=== PATIENT | female | born 1950 | race Caucasian/White ===

== ENCOUNTER 2020-11-18 19:17 | Outpatient (REF) | payer OTHER, SELFPAY ==
[2020-11-18 20:17] LABS: HCT 43.6 % (36.0-46.0); MCH 29.2 pg (27.0-33.0); MCHC 32.1 % (32.0-36.0); MCV 90.8 fL (80-95); MPV 9.4 fL (8.0-11.0); Platelet Count 287 10^3/uL (130-400); RDW 11.9 % (11.7-14.6); RDW-SD 39.9 fL; WBC 9.86 10^3/uL (4.4-10.8)
[2020-11-18 20:41] LABS: Anion Gap 11.5 mmol/L (3-11); BUN 14 mg/dL (7-18); CO2 27.5 mmol/L (21.0-32.0); CREATININE 0.8 mg/dL (0.55-1.02); Calcium 9.2 mg/dL (8.5-10.1); Calculated LDL 98 mg/dL (<100); Chloride 103 mmol/L (98-107); Cholesterol 165 mg/dL (<200); Glucose 95 mg/dL (74-106); HDL Cholesterol 46 mg/dL (40-60); Potassium 4.1 mmol/L (3.5-5.1); Sodium 142 mmol/L (136-145); TSH 0.91 uIU/mL (0.36-3.74); Triglyceride 108 mg/dL (<150)
== END 2020-11-18 19:18 | disposition home or self-care (01) ==
LOC: NCHCN 19:17
PROVIDERS: PCP Internal Medicine; Visit Provider Internal Medicine
DX: E78.5 Hyperlipidemia, unspecified (principal); R68.89 Other general symptoms and signs
CPT/HCPCS: 80048; 80061; 85027; 84443

== ENCOUNTER 2020-11-25 02:11 | Outpatient (CLI) | payer SELFPAY ==
[2020-11-25] MEDS: Omnipaque 350 MG/ML 50 ML BTL IJ (14:14)
[2020-11-25] MEDS: Normal Saline - Diluent 50 ML VIAL IV (14:15)
[2020-11-25] MEDS: Normal Saline Flush 10 ML SYR IVP (14:16)
--- NOTE | 2020-11-25 14:16 | DI.CT_ITS ---
EXAM: CT ABD AORTA CTA W RUNOFF CLINICAL HISTORY: RT CLAUDICATION LEG, I73.9,. TECHNIQUE: Imaging Protocol: Axial computed tomography images with coronal and sagittal reformatted images were created and reviewed CONTRAST MATERIAL: Intravenous: Visipaque 350 Contrast volume:150 cc COMPARISON: No exams were available for comparison FINDINGS: VISUALIZED LUNG BASES: THERE IS A LARGE CONCERNING MASS IN THE RIGHT LOWER LOBE POSTERIOR BASAL SEGMENT WHICH MEASURES 3.5 B Y 2.3 CENTIMETRES WHICH IS HIGHLY SUSPICIOUS FOR NEOPLASM. ABDOMINAL AORTA/BILATERAL LOWER EXTREMITY RUNOFF: The abdominal aorta is atherosclerotic. 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 Flow is reconstituted in the external iliac arteries via retrograde flow in both internal iliac arteries. Both common femoral arteries are patent. Both SFA arteries are nicely patent neck continu ous with patent nonaneurysmal bilateral popliteal arteries. There is 3 vessel runoff in both calves. The celiac and superior mesenteric arteries are patent without tight stenosis at their origins. The origin of the inferior mesenteric artery is not opacified as this comes off of the occluded part of t he aorta. There are no obvious ischemic appearing bowel loops. ABDOMEN: There is no ascites. LIVER: multiple small hypodensities in the liver are too small to characterize on this arterial phase study. GALLBLADDER/BILIARY: Gallbladder is contracted. CBD is not dilated. PANCREAS: No evidence of pancreatic mass nor dilatation of the pancreatic duct. SPLEEN: Spleen is not enlarged. There are no intrasplenic lesions. ADRENALS: Right adrenal gland unremarkable. Slight thickening the left adrenal gland but without an obvious mass therein KIDNEYS: No cysts evident. No calculi nor hydronephrosis. No solid renal masses. LYMPH NODES: There is no retroperitoneal nor para-aortic adenopathy. No obvious mesenteric masses. ABDOMINAL WALL/GI: No evidence of significant anterior abdominal wall hernia. No bowel obstruction. There are no obvious ischemic appearing bowel loops. There is no ascites. PELVIS: LYMPH NODES: There is no intrapelvic nor inguinal adenopathy. GI: No evidence of appendicitis.There is extensive sigmoid diverticulosis. There is no obvious acute diverticulitis. URINARY BLADDER: No calculi nor masses evident REPRODUCTIVE: Age appropriate. No abnormal adnexal masses nor free fluid in the pelvis. OSSEOUS: No significant osseous lesions. IMPRESSION: 1. There is a large ominous mass in the right lower lobe incidentally noted on this CT angiogram stud y. This measures approximately 3.5 x 2.3 cm and this is highly suspicious for neoplasm. Thoracic mckeon rgery consultation is recommended. 2. Although there is no evidence of abdominal aortic aneurysm, the abdominal aorta is atherosclerotic and is occluded below the level the renal arteries. Flow is reconstituted at the level of the exter nal iliac arteries bilaterally, this via retrograde collateral flow in both internal iliac arteries. 3. There is minimal if any significant atherosclerotic disease in the outflow vessels of both lower extremities at and below the level of the inguinal ligaments. There is good three-vessel runoff in b oth calves. Message left by myself on answering service [facility] 11/25/2020 p.m. RADIATION DOSE DELIVERED: 1,032.43mGy.cm Total DLP DATA REPOSITORY: All CT scans at this facility are submitted to the National Radiology Data Registry (NRDR) Dose Index Registry (DIR) with the [employer] (ACR). RADIATION OPTIMIZATION: All CT scans at this facility use at least one of these dose optimization te chniques: automated exposure control; mA and/or kV adjustment per patient size (includes targeted exa ms where dose is matched to clinical indication); or iterative reconstruction.
== END 2020-11-25 02:31 ==
PROVIDERS: PCP Internal Medicine; Visit Provider Internal Medicine
DX: R91.8 Other nonspecific abnormal finding of lung field (principal); I74.09 Other arterial embolism and thrombosis of abdominal aorta; I70.0 Atherosclerosis of aorta; D38.1 Neoplasm of uncertain behavior of trachea, bronchus and lung
CPT/HCPCS: 75635; Q9967

== ENCOUNTER 2021-07-28 10:27 | Emergency (ER) | payer MEDICARE, SELFPAY ==
[2021-07-28 10:36] VITALS: BP 149/86; PULSE 91; RESP 18; TEMP 36.9; O2SAT 97
--- NOTE | 2021-07-28 11:15 | DI.RAD_ITS ---
Exam(s) XR LUMBAR SPINE COMPLETE EXAM: XR LUMBAR SPINE COMPLETE CLINICAL HISTORY: Lower back pain. TECHNIQUE: 2D digital imaging was performed. COMPARISON: CR LUMBAR SPINE COMPLETE from 12/25/2012 FINDINGS: There is no evidence of acute fracture or listhesis. Mild height loss superior endplate L3 again not ed, unchanged. Also Schmorl's node invagination superior endplate L1 is again noted, also unchanged. No prominent disc space narrowing no scoliosis. Sacroiliac joints unremarkable. Vascular calcific ation the abdominal aorta and iliac arteries again noted. IMPRESSION: As above. Minimal significant radiographic change compared to December 2012 DATA REPOSITORY: RADIATION DOSE DELIVERED:
[2021-07-28 11:19] LABS: Bilirubin Negative (Negative); Blood Small (Negative); Clarity Clear (Clear); Glucose Negative (Negative); Ketones Negative (Negative); Leukocyte Esterase Trace (Negative); Nitrite Negative (Negative); Urobilinogen 0.2 EU/dL (Up TO 0.2); pH 6.5 (5-8)
[2021-07-28 11:26] LABS: Bacteria Rare HPF (Negative); C & S Indicated? No/Sq. Contamination; Casts Negative LPF (Negative); Crystals Negative HPF (Negative); Epithelial Cells Moderate HPF (Negative); Mucus Negative (Negative); WBC 0-2 HPF (0-5)
--- NOTE | 2021-07-28 11:26 | ED.GENADUL_ITS ---
Discharge Plan Disposition Patient Disposition: HOME Condition: Stable Discharge Details Clinical Impression: Lumbago Primary Care Provider: Nitish Mccoy ED Provider: Elvia Sears Home Meds and New Rx's Prescriptions: No Action atorvastatin 20 mg Tablet 40 mg PO QPM RF: 0 aspirin [Aspir-Low] 81 mg Tablet,Delayed Release (Dr/Ec) 81 mg PO DAILY RF: 0 Discharge Instructions Instructions: Low Back Strain (ED) Additional Instructions: You do have some abnormalities on your lumbar x-ray but they are unchanged from previous images. You have some degenerative changes which I suspect is causing your pain. Alternate ice and heat. Take the Valium and oxycodone as needed. Be careful because this can cause sedation. Do not drink alcohol with the medications and take with food. Follow up with primary care provider in 3-5 days. Return to ED sooner if any worsening or concerns. Increase oral fluids. Please take Tylenol or Ibuprofen with food every 4-6 hours as needed for pain and swelling. Consider chiropractor or massage. Stand Alone Forms: Work Release Referrals: Nitish Mccoy MD [Primary Care Provider] - 3 days Medical Decision Making 71-year-old female presents to the ER with chief complaint of lower lumbar back pain which is worsened over the last 2 days. 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 She has been taking Tylenol with little to no relief. She denies any numbness tingling, weakness no saddle anes thesia denies any loss of bowel or bladder control. Patient has a past medical history of lung cancer with treatment with radiation. Hypercholesterolemia. At this time urinalysis ordered, L-spine x-rays, Flexeril and oxycodone p.o. FINDINGS: There is no evidence of acute fracture or listhesis. Mild height loss superior endplate L3 again noted, unchanged. Also Schmorl's node invagination superior endplate L1 is again noted, also unchanged. No prominent disc space narrowing no scoliosis. Sacroiliac joints unremarkable. Vascular calcification the abdominal aorta and iliac arteries again noted. IMPRESSION: As above. Minimal significant radiographic change compared to December 2012 1347: Patient reevaluation still complaining of pain. 5 mg of Valium ordered p.o. X-rays show no significant change from previous. Results noted above. Discussed x-ray results with patient. Patient is sitting on the bed. discussed home care and follow-up with PCP and work restrictions and strict return instructions. She verbalizes understanding. HPI General Mode of arrival: ambulatory . Date/Time Provider Initiated Documentation: 07/28/21 10:51 . Limitations to Documentation: no limitations . Information obtained by: patient, RN notes reviewed and old records reviewed . HPI Narrative: 71-year-old female presents to the ER with chief complaint of lower lumbar pain which is worsened over the last couple of days. Increases with movement. Denies any saddle anesthesia no loss of bowel or bladder control no numbness tingling. Related Data Home Medications Medication Instructions Recorded Confirmed aspirin [Aspir-Low] 81 mg PO DAILY 07/28/21 07/28/21 atorvastatin 40 mg PO QPM 07/28/21 07/28/21 Allergies Allergy/AdvReac Type Severity Reaction Status Date / Time No Known Allergies Allergy Unverified 09/07/20 10:31 General Stated Complaint: Nk/Back Pain JOLLY: 3 Review of Systems All systems reviewed & are unremarkable except as noted in HPI and below ENT Ears, Nose, Mouth, and Throat: Denies disequilibrium Musculoskeletal Musculoskeletal: Reports as per HPI, Denies abnormal gait, Reports back pain, Denies muscle weakness, Denies numbness, Denies radiating pain into limb and Denies tingling Comments: Worse with lying flat and twisting . Neurologic Neurologic: Denies abnormal gait, Denies numbness, Denies radicular pain, Denies restless legs, Denies tingling and Denies disequilibrium PFSH All Active Problems (Updated 07/28/21 @ 13:55 by Elvia Sears) Lumbago (Acute) Social History Smoking/Tobacco Use Status: Current every day Tobacco Type: cigarettes Smoking risk assessment performed?: Yes Alcohol Intake: never Drug use: Never Substance use type: does not use Do you feel safe at home: Yes Do you feel safe in your relationship?: Yes Exam Narrative Exam Narrative: Constitutional: Alert and oriented x3. Appears stated age. Normal body habitus. Head: Normocephalic, no trauma. Eyes: Pupils PERRL, Red reflex noted, EOM's intact. Eyelids symmetrical without lesions, discharge, or swelling. ENT: Bilateral TM's WNL, External ear normal to inspection, no mastoid TTP, swelling, or erythema, Nasal turbinates WNL, no nasal discharge. Normal dentition, Posterior pharynx WNL, no exudate. Chest: RRR, Normal S1, S2, distal pulses intact. Resp: Lungs clear to auscultation bilaterally, no wheezes, rales, or rhonchi. Abdomen: Soft, non-distended, Normoactive bowel sounds all 4 quads. Musculoskeletal: Normal gait, 5/5 strength to all four extremities. Skin: No suspicious rashes or lesions. Capillary refill less than 2 sec. Neurologic: Cranial nerves II-XII intact. Alert and oriented x 3. Motor: No deficits noted. Sensory: Intact bilaterally all 4 extremities. Reflexes: DTR's i ntact bilaterally.. Hematologic/Lymphatic: No ecchymosis, no lymphadenopathy. Course Vital Signs Vital signs: Vital Signs Temperature 36.9 C 07/28/21 10:36 Pulse 91 H 07/28/21 10:36 Respiratory Rate 18 07/28/21 10:36 Blood Pressure 149/86 H 07/28/21 10:36 Pulse Oximetry 97 07/28/21 10:36 Temperature 36.9 C 07/28/21 10:36 Temperature Source Temporal Artery Scan 07/28/21 10:36 Pulse 91 H 07/28/21 10:36 Respiratory Rate 18 07/28/21 10:36 Respiratory Effort Non-Labored 07/28/21 10:41 Blood Pressure 149/86 H 07/28/21 10:36 Blood Pressure Position Standing 07/28/21 10:36 Pulse Oximetry 97 07/28/21 10:36 Oxygen Delivery Method Room Air 07/28/21 10:36 Oxygen Flow Rate 0 07/28/21 10:36 Pain Level 10 07/28/21 10:36 Lab/Test Results Lab/Test Results: Laboratory Tests Range/Units 07/28/21 11:10 Urine Color (Yellow) Yellow Urine Clarity (Clear) Clear Urine pH (5-8) 6.5 Ur Specific Leopold (1.005-1.025) 1.010 Urine Protein (Negative) mg/dL Negative Urine Ketones (Negative) mg/dL Negative Urine Blood (Negative) Small H Urine Nitrite (Negative) Negative Urine Bilirubin (Negative) Negative Urine Urobilinogen (Up TO 0.2) EU/dL 0.2 Ur Leukocyte Esterase (Negative) Trace H Urine Glucose (Negative) mg/dL Negative
[2021-07-28] MEDS: Cyclobenzaprine 10 MG TAB PO (12:11)
[2021-07-28] MEDS: oxyCODONE 5 MG TAB PO (12:11)
[2021-07-28] MEDS: diazePAM 5 MG TAB PO (14:21)
[2021-07-28] MEDS: diazePAM 2 MG TAB PO (14:22)
[2021-07-28 14:31] VITALS: BP 176/87; PULSE 81; RESP 18; TEMP 36.7; O2SAT 96
[2021-07-28 14:32] VITALS: BP 176/87; PULSE 81; RESP 18; TEMP 36.7; O2SAT 96
== END 2021-07-28 14:31 | disposition home or self-care (01) ==
PROVIDERS: Emergency Provider Registered Nurse Emergency; PCP Internal Medicine
DX: M54.50 Low back pain, unspecified (principal)
CPT/HCPCS: 99283; 72110; 81003; 81015

== ENCOUNTER 2021-08-10 14:51 | Emergency (ER) | payer MEDICARE, SELFPAY ==
[2021-08-10 14:58] VITALS: BP 183/85; PULSE 86; RESP 16; TEMP 36.5; O2SAT 99
--- NOTE | 2021-08-10 15:08 | W.ED.GENAD ---
Discharge Plan Disposition Patient Disposition: HOME Condition: Improving Discharge Details Clinical Impression: Constipation Primary Care Provider: Nitish Mccoy ED Provider: Conor Mayes Home Meds and New Rx's Prescriptions: Continued atorvastatin 20 mg Tablet 40 mg PO QPM RF: 0 aspirin 81 mg Tablet,Delayed Release (Dr/Ec) 81 mg PO DAILY RF: 0 acetaminophen [Tylenol Extra Strength] 500 mg Tablet 1,000 mg PO .Q6HRS PRNRF: 0 Discharge Instructions Instructions: Constipation (ED) Additional Instructions: Home to rest. Continue MiraLAX 1-2 times per day for the next 3 to 5 days time. Return to the ER if you develop vomiting, worsening floating or any other acute concerns. You do have evidence of T11 compression fracture as we discussed. This is not a dangerous fracture.. May use Tylenol for pain. No lifting greater than 8 pounds. Stand Alone Forms: Work Release Medical Decision Making 71-year-old female with a past medical history significant for lung cancer. She once for return visit to the ER after being seen July 28 here, at urgent care today, for ongoing back pain associated with abdominal bloating. She has been constipated. Has been taking prednisone and oxycodone for the pain. She states she has a single right-sided pulmonary lesion that was treated with focused radiation which she completed in the fall 2020. She has follow-up pending with [facility] oncology in September. At the previous visit to the emergency department on July team she had an unremarkable L-spine x-ray On arrival slightly hypertensive but afebrile. Exam reveals tenderness and mild bloating of the abdomen. She has a crusted lesion of the right distal third tibia she states is a 3-month which was gently debrided and covered with a Mepilex. Different diagnosis includes bowel obstruction, mass, dehydration, constipation, and must consider bony lesion.. IV access established, screening labs obtained, patient referred for CT of the chest, abdomen pelvis. Laboratories are reassuring with a white count of 9, hematocrit 45, platelets 281, reassuring chemistries, unremarkable LFTs and lipase. CT reveals a T11 compression fracture of indeterminate age. No significant new findings in the abdomen and note of decreased size of the right lower lobe mass of the lung. Patient given soapsuds enema, with some minimal stool output. She felt improved and requested discharge to home. She will continue MiraLAX. Lab Data Lab results reviewed: Yes I reviewed the patient's lab results. Labs: Laboratory Results - last 24 hr 08/10/21 08/10/21 08/10/21 15:25 15:25 15:25 WBC 9.11 RBC 4.90 Hgb 14.9 Hct 45.9 MCV 93.7 MCH 30.4 MCHC 32.5 RDW 12.1 Plt Count 281 MPV 7.9 L Immature Gran % 0.5 Neutrophils % 73.1 Lymphocytes % 19.5 Monocytes % 5.9 Eosinophils % 0.5 Basophils % 0.5 Nucleated RBC % 0 Absolute Neutrophils 6.64 Absolute Lymphocytes 1.78 Absolute Monocytes 0.54 Absolute Eosinophils 0.05 Absolute Basophils 0.05 Sodium 139 Potassium 3.8 Chloride 102 Carbon Dioxide 30.0 Anion Gap 7.0 BUN 19 H Creatinine 0.8 Estimated GFR/1.73 m2 >= 60.00 Glucose 95 Calcium 9.1 Magnesium 2.6 H Total Bilirubin 0.4 AST 13 L ALT 26 Alkaline Phosphatase 120 H Total Protein 8.1 Albumin 3.9 Lipase 110 Urine Color Urine Clarity Urine pH Ur Specific [place] Urine Protein Urine Ketones Urine Blood Urine Nitrite Urine Bilirubin Urine Urobilinogen Ur Leukocyte Esterase Urine RBC Urine WBC Ur Epithelial Cells Urine Crystals Urine Bacteria Urine Casts Urine Mucus Urine Other Ur Culture Indicated? Urine Glucose 08/10/21 16:44 WBC RBC Hgb Hct MCV MCH MCHC RDW Plt Count MPV Immature Gran % Neutrophils % Lymphocytes % Monocytes % Eosinophils % Basophils % Nucleated RBC % Absolute Neutrophils Absolute Lymphocytes Absolute Monocytes Absolute Eosinophils Absolute Basophils Sodium Potassium Chloride Carbon Dioxide Anion Gap BUN Creatinine Estimated GFR/1.73 m2 Glucose Calcium Magnesium Total Bilirubin AST ALT Alkaline Phosphatase Total Protein Albumin Lipase Urine Color Yellow Urine Clarity Clear Urine pH 6.0 Ur Specific [place] <= 1.005 Urine Protein Negative Urine Ketones Negative Urine Blood Trace-intact H Urine Nitrite Negative Urine Bilirubin Negative Urine Urobilinogen 0.2 Ur Leukocyte Esterase Negative Urine RBC 3-5 H Urine WBC Negative Ur Epithelial Cells Few Urine Crystals Negative Urine Bacteria Negative Urine Casts Negative Urine Mucus Negative Urine Other Negative Ur Culture Indicated? No Urine Glucose Negative HPI General Mode of arrival: ambulatory. Date/Time Provider Initiated Documentation: 08/10/21 14:55. Limitations to Documentation: no limitations. Information obtained by: patient. History of Present Illness 71 year old F presents to the emergency department with the chief complaint of Referred from urgent care for back pain and abdominal bloating, described as moderate, Quality is described as dull, and is localized to the back and abdomen. Patient reports no radiation. Patient started experiencing this week(s) and it has been constant. No relieving factors improve symptom(s), No exacerbating factors reported . Patient notes denies fever/chills. Patient did receive the following treatments prior to arrival, other (Oxycodone, prednisone, stool softener) Related Data Home Medications Medication Instructions Recorded Confirmed aspirin 81 mg PO DAILY 07/28/21 08/10/21 atorvastatin 40 mg PO QPM 07/28/21 08/10/21 acetaminophen [Tylenol Extra 1,000 mg PO .Q6HRS PRN 08/10/21 08/10/21 Strength] Allergies Allergy/AdvReac Type Severity Reaction Status Date / Time No Known Allergies Allergy Unverified 08/10/21 15:03 General Stated Complaint: GenMedical JOLLY: 3 Review of Systems Narrative: 8 systems reviewed and otherwise negative. No chest pain or short of breath. PFSH All Active Problems (Updated 08/10/21 @ 18:25 by Conor Mayes MD) Lumbago (Acute) Constipation (Acute) Social History Smoking/Tobacco Use Status: Current every day Tobacco Type: cigarettes Smoking risk assessment performed?: Yes Alcohol Intake: never Drug use: Never Substance use type: does not use Do you feel safe at home: Yes Do you feel safe in your relationship?: Yes Exam Narrative Exam Narrative: GEN: awake, alert, oriented 3. Pleasant, well groomed, interactive. HEAD: Normocephalic, atraumatic ENT: Mucous membranes moist, External ear exam unremarkable EYES: PERRL, EOMI NECK: Full ROM, no MEHUL, no menigismus CHEST/RESP: Nontender, clear to auscultation bilateral, no wheeze/rhonchi/rales CARDIOVASCULAR: RRR, no murmur, rub katina. 2+ Rad pulse bilateral ABDOMEN: Soft, tender right mid lower quadrants, no mass. +Bowel sounds EXT: Full ROM, no edema, crusted lesion right anterior distal third tibia measuring approximately 4 x 10 cm Neuro: Grossly normal neurologic exam, conversant, interactive. Psych: Speech fluent, thoughts congruent, affect normal Course Vital Signs Vital signs: Vital Signs Temperature 36.5 C 08/10/21 14:58 Pulse 86 08/10/21 14:58 Respiratory Rate 16 08/10/21 14:58 Blood Pressure 183/85 H 08/10/21 14:58 Pulse Oximetry 99 08/10/21 14:58 Temperature 36.5 C 08/10/21 14:58 Temperature Source Skin 08/10/21 14:58 Pulse 86 08/10/21 14:58 Respiratory Rate 16 08/10/21 14:58 Respiratory Effort 08/10/21 14:58 Blood Pressure 183/85 H 08/10/21 14:58 Blood Pressure Position Sitting 08/10/21 14:58 Pulse Oximetry 99 08/10/21 14:58 Oxygen Delivery Method Room Air 08/10/21 14:58 Oxygen Flow Rate 0 08/10/21 14:58 Pain Level 10 08/10/21 14:58
[2021-08-10] MEDS: Normal Saline 1,000 ML 150 ML IV (15:27)
[2021-08-10 15:34] LABS: Abs Immature Grans 0.05 10^3/uL (0.0-0.06); Absolute Basophil Count 0.05 10^3/uL (0.0-0.2); Absolute Eosinophil Count 0.05 10^3/uL (0.0-0.7); Absolute Lymphocyte Count 1.78 10^3/uL (1.2-3.4); Absolute Monocyte Count 0.54 10^3/uL (0.1-0.8); Absolute Neutrophil Count 6.64 10^3/uL (1.2-6.7); Basophils % 0.5; Eosinophils % 0.5; HCT 45.9 % (36.0-46.0); HGB 14.9 g/dL (11.2-15.7); Immature Grans % 0.5; Lymphocytes % 19.5; MCH 30.4 pg (27.0-33.0); MCHC 32.5 % (32.0-36.0); MCV 93.7 fL (80-95); MPV 7.9 fL (8.0-11.0); Monocytes % 5.9; Neutrophils % 73.1; Nucleated RBC 0 %; Platelet Count 281 10^3/uL (130-400); RDW 12.1 % (11.7-14.6); RDW-SD 42.2 fL; WBC 9.11 10^3/uL (4.4-10.8)
[2021-08-10 15:52] LABS: ALT 26 U/L (14-59); AST 13 U/L (15-37); Albumin 3.9 g/dL (3.4-5.0); Alkaline Phosphatase 120 U/L (46-116); BUN 19 mg/dL (7-18); Bilirubin, Total 0.4 mg/dL (0.2-1.0); CREATININE 0.8 mg/dL (0.55-1.02); Calcium 9.1 mg/dL (8.5-10.1); Chloride 102 mmol/L (98-107); Glucose 95 mg/dL (74-106); Lipase 110 U/L (73-393); Magnesium 2.6 mg/dL (1.8-2.4); Potassium 3.8 mmol/L (3.5-5.1); Sodium 139 mmol/L (136-145); Total Protein 8.1 g/dL (6.4-8.2)
--- NOTE | 2021-08-10 16:23 | DI.CT_ITS ---
Exam(s) CT CHEST/ABD/PEL W EXAM: CT CHEST/ABD/PEL W CLINICAL HISTORY: lung cancer. back pain, abdominal bloating. TECHNIQUE: Imaging Protocol: Axial computed tomography images with coronal and sagittal reformatted images were created and reviewed CONTRAST MATERIAL: Intravenous: Omnipaque 350 Contrast volume:100 ml Oral: None COMPARISON: CT CT ABD AORTA CTA W RUNOFF from 11/25/2020 FINDINGS: CHEST: LUNGS: Previously described malignant-appearing mass in the right lower lobe posterior basal segment has somewhat decreased in size, presently measuring 2.3 by 1.3 cm (previously measuring 3.5 x 2.3 cm) . No additional nodules nor pleural effusions. No new significant focal findings in the trachea and mainstem bronchi.. MEDIASTINUM: There is no hilar nor mediastinal adenopathy. Visualized thyroid unremarkable. CARDIAC: Heart size is normal. There is no pericardial effusion.Caliber of the thoracic aorta is wit hin normal limits. OSSEOUS: T11 compression fracture now evident, approximately 30 percent.. ABDOMEN: There is no ascites. LIVER: Multiple small hypodensities in the liver again noted which are probably cysts given their chaitanya earance. These range up in size to 8 millimeters. GALLBLADDER/BILIARY: No obvious gallbladder pathology. CBD is not dilated. PANCREAS: No evidence of pancreatic mass nor dilatation of the pancreatic duct. SPLEEN: Spleen is not enlarged. There are no intrasplenic lesions. Splenic and portal veins are laguna nt. ADRENALS: There are no significant adrenal masses. KIDNEYS: No calculi nor hydronephrosis. No solid renal masses. No cysts evident. ABDOMINAL AORTA: Abdominal aorta is again noted be heavily calcified occluded below the renal arterie s, previously present. LYMPH NODES: There is no retroperitoneal nor paraaortic adenopathy. ABDOMINAL WALL: No evidence of significant anterior abdominal wall nor inguinal hernia. GI: Abundant fecal material noted colon. No distinct bowel obstruction. PELVIS: LYMPH NODES: There is no intrapelvic nor inguinal adenopathy. GI: No evidence of appendicitis.Sigmoid diverticulosis but no obvious acute diverticulitis. URINARY BLADDER: The distended. REPRODUCTIVE: Unremarkable OSSEOUS: No significant osseous lesions. IMPRESSION: 1. Compared to the prior CT scan of November 2020 the size of the right lower lobe mass has somewhat dec reased in size, as described above. No new significant masses nor pleural effusions and no intrathor acic adenopathy. 2. There has been interval development of a T compression fracture, age indeterminate. Correlation w ith site of tenderness is recommended. 3. Multiple probable benign cysts in liver again noted. 4. Aortic occlusion again noted- Leriche syndrome. This is secondary to advanced atherosclerotic dis ease. There is no aneurysm. Reconstitution of flow to the lower extremities via pelvic collaterals. RADIATION DOSE DELIVERED: 1,235.63mGy.cm Total DLP DATA REPOSITORY: All CT scans at this facility are submitted to the National Radiology Data Registry (NRDR) Dose Index Registry (DIR) with the [employer] (ACR). RADIATION OPTIMIZATION: All CT scans at this facility use at least one of these dose optimization te chniques: automated exposure control; mA and/or kV adjustment per patient size (includes targeted exa ms where dose is matched to clinical indication); or iterative reconstruction.
[2021-08-10] MEDS: Omnipaque 350 MG/ML 100 ML BTL IJ (16:35)
[2021-08-10 16:41] VITALS: BP 154/65; PULSE 77; TEMP 36.7; O2SAT 97
[2021-08-10 16:54] LABS: Bilirubin Negative (Negative); Blood Trace-intact (Negative); Clarity Clear (Clear); Glucose Negative (Negative); Ketones Negative (Negative); Leukocyte Esterase Negative (Negative); Nitrite Negative (Negative); Specific Gravity <= 1.005 (1.005-1.025); Urobilinogen 0.2 EU/dL (Up TO 0.2)
--- NOTE | 2021-08-10 17:16 | DI.VRAD_ITS ---
PROCEDURE INFORMATION: Exam: CT Chest With Contrast; Diagnostic Exam date and time: 08/10/2021 3:08 PM Age: 71 years old Clinical indication: Lungca; Patient HX: Lung cancer, back pain, abdominal bloating TECHNIQUE: Imaging protocol: Diagnostic computed tomography of the chest with contrast. 3D rendering (Not supervised by radiologist): MIP and/or 3D reconstructed images were created by the technologist. Radiation optimization: All CT scans at this facility use at least one of these dose optimization techniques: automated exposure control; mA and/or kV adjustment per patient size (includes targeted exams where dose is matched to clinical indication); or iterative reconstruction. Contrast material: OMNI-PAQUE 350; Contrast volume: 100 ml; Contrast route: INTRAVENOUS (IV); COMPARISON: CT ABD AORTA CTA W RUNOFF 11/25/2020 1:59 PM FINDINGS: Lungs: Previously noted right lower lobe of the lung mass has decreased in size measuring 3.2 x 1.2 cm, previously 3.7 x 2.0 cm (image 44, series 4). Apical scarring noted bilaterally. No significant consolidation. Pleural spaces: No pneumothorax. No pleural effusion. Heart: No cardiomegaly. No pericardial effusion. Aorta: No aortic aneurysm. Lymph nodes: No enlarged lymph nodes. Bones/joints: There is a compression fracture in the T11 vertebral body, which is new since the prior examination and may be acute or chronic in nature. Multilevel degenerative disc disease and facet arthropathy noted. Soft tissues: Unremarkable. IMPRESSION: 1. Interval decrease in size of right lower lobe mass since the prior examination. 2. No significant consolidation. 3. Interval development of a T11 compression fracture, which may be acute or chronic in nature. Correlate with clinical history and any point tenderness in this region. PROCEDURE INFORMATION: Exam: CT Abdomen And Pelvis With Contrast Exam date and time: 08/10/2021 3:08 PM Age: 71 years old Clinical indication: Other: Lungca; Patient HX: Lung cancer, david pain, abdominal bloating TECHNIQUE: Imaging protocol: Computed tomography of the abdomen and pelvis with contrast. 3D rendering (Not supervised by radiologist): MIP and/or 3D reconstructed images were created by the technologist. Radiation optimization: All CT scans at this facility use at least one of these dose optimization techniques: automated exposure control; mA and/or kV adjustment per patient size (includes targeted exams where dose is matched to clinical indication); or iterative reconstruction. Contrast material: OMNI-PAQUE 350; Contrast volume: 100 ml; Contrast route: INTRAVENOUS (IV); COMPARISON: CT ABD AORTA CTA W RUNOFF 11/25/2020 1:59 PM FINDINGS: Liver: There is redemonstration of multiple small cystic structures in the liver, which are too small to characterize, however appear similar to prior examination.. Gallbladder and bile ducts: No calcified stones. No ductal dilation. Pancreas: No ductal dilation. Spleen: No splenomegaly. Adrenal glands: No mass. Kidneys and ureters: No hydronephrosis. Stomach and bowel: No obstruction. No mucosal thickening. Appendix: No evidence of appendicitis. Intraperitoneal space: No free air. No significant fluid collection. Vasculature: There is redemonstration of complete occlusion of pole lower aorta secondary to extensive calcified and noncalcified atherosclerotic plaque. There is reconstitution of the bilateral internal and external iliac arteries from collateral arterial vasculature. Lymph nodes: No enlarged lymph nodes. Urinary bladder: Unremarkable as visualized. Reproductive: Unremarkable as visualized. Bones/joints: No acute lumbar spine fracture. Soft tissues: Unremarkable. IMPRESSION: 1. No acute findings. 2. 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 Dictated and Authenticated by: Lilia De Anda MD. Ordering:CHARLIE Perdomo MD
[2021-08-10 17:18] LABS: Bacteria Negative HPF (Negative); C & S Indicated? No; Casts Negative LPF (Negative); Crystals Negative HPF (Negative); Epithelial Cells Few HPF (Negative); Mucus Negative (Negative); Other Cells Negative (Negative); WBC Negative HPF (0-5)
== END 2021-08-10 18:34 | disposition home or self-care (01) ==
PROVIDERS: Emergency Provider Emergency Medicine; PCP Internal Medicine
DX: K59.00 Constipation, unspecified (principal); C34.91 Malignant neoplasm of unspecified part of right bronchus or lung; F17.210 Nicotine dependence, cigarettes, uncomplicated; S22.080A Wedge compression fracture of T11-T12 vertebra, initial encounter for closed fracture; R14.0 Abdominal distension (gaseous); X58.XXXA Exposure to other specified factors, initial encounter
CPT/HCPCS: 36415; 74177; 80053; 83690; 96360; 96361; 99285; 71260; 81003; 81015; 83735; 85025; 99284; J3490

== ENCOUNTER 2021-10-06 00:46 | Outpatient (CLI) | payer MEDICARE, SELFPAY ==
--- NOTE | 2021-10-06 12:30 | DI.RAD_ITS ---
Exam(s) XR RIBS RT W PA LAT CHEST EXAM: XR RIBS RT W PA LAT CHEST CLINICAL HISTORY: RT LUNG LOWER LOBE ADENOCARCINOMA, C34.31, RIGHT-SIDED RIB PAIN, R07.81 TECHNIQUE: 2D digital imaging was performed. COMPARISON: CR CHEST 2 VIEWS PA,LAT from 12/25/2012 FINDINGS: Left rib cage: No obvious acute left rib fractures nor rib lesions. Chest x-ray: T11 compression fracture which has progressed in height loss when compared CT scan 08/10. Heart size is normal. Mediastinum not widened. No infiltrates pleural effusions no pulmonary edema. No pneumothorax. IMPRESSION: 1. No rib fractures evident. Also no obvious rib lesions. 2. No ipsilateral lung nor pleural abnormality evident. No pneumothorax. T11 compression fracture, approximately 70 percent. This appears to have progressed in height loss w hen compared to the CT images of 08/10/2021 DATA REPOSITORY: RADIATION DOSE DELIVERED:
--- NOTE | 2021-10-06 12:40 | DI.RAD_ITS ---
Exam(s) XR THORACIC SPINE COMPLETE EXAM: XR THORACIC SPINE COMPLETE CLINICAL HISTORY: RT LOWER LOBE ADENOCARCINOMA, C34.31, LBP, M54.5. TECHNIQUE: 2D digital imaging was performed. COMPARISON: CR XR LUMBAR SPINE COMPLETE from 07/28/[address] CHEST/ABD/PEL W from 08/10/2021 FINDINGS: There is a wedge compression fracture of a lower thoracic vertebra, probably T11 or T12. Approximate ly 70 percent height loss. This finding was evident on CT scan of 08/10/2021 but appears to have further loss height since that time. IMPRESSION: DATA REPOSITORY: RADIATION DOSE DELIVERED:
== END 2021-10-06 01:06 ==
LOC: DI 00:46
PROVIDERS: PCP Internal Medicine; Visit Provider Internal Medicine
DX: C34.31 Malignant neoplasm of lower lobe, right bronchus or lung (principal); M54.59 Other low back pain; S22.080G Wedge compression fracture of T11-T12 vertebra, subsequent encounter for fracture with delayed healing; R07.81 Pleurodynia
CPT/HCPCS: 71046; 71100; 72072

== ENCOUNTER 2022-10-17 01:30 | Outpatient (CLI) | payer MEDICARE, SELFPAY ==
--- NOTE | 2022-10-17 | DI.CT_ITS ---
Exam(s) CT CHEST W EXAM: CT CHEST W CLINICAL HISTORY: LUNG CANCER C34.31 STAGING. TECHNIQUE: Multi planar reconstructions were performed. CONTRAST MATERIAL: Omnipaque 350; 75 cc COMPARISON: CT CT CHEST/ABD/PEL W from 08/10/2021 FINDINGS: CHEST: LUNGS: Previously described mass-infiltrate in the posterior basal segment of the right lower lobe is again noted. Slightly increased in size the previous study presently measuring approximately 4.2 by 2.5 cm. There is a small associated ipsilateral pleural effusion. Mild infiltrate the posterior se gment right upper lobe noted. Small nodular density laterally in the right upper lobe noted measurin g 3 millimeters. In the opposite-left lung c there are no significant findings. No pleural effusions. No significant focal findings in the trachea and mainstem bronchi. MEDIASTINUM: There is adenopathy in the right hilum. Left hilum unremarkable. No subcarinal adenopa thy. Visualized thyroid unremarkable. CARDIAC: Heart size is normal. There is no pericardial effusion.Caliber of the thoracic aorta is wit hin normal limits. VISUALIZED UPPER ABDOMEN:Multiple hypodensities in the liver again noted all measuring less than 1 cm and previously present. These most probably represent benign cysts given their appearance. OSSEOUS: Wedge compression fracture of T11 noted. This has progressed from July 2021.. IMPRESSION: 1. Compared to the CT scan of 08/10/2021 the previously described mass infiltrate in the posterior ba maranda segment of the right lower lobe has further increased in size and is now associated with a small ipsilateral pleural effusion as well as ipsilateral right hilar adenopathy. No new left lung finding s. No pleural effusion on the left side. 2. Stable sub cm multiple hypodensities in the liver which are probably benign cyst. 3. Progression of T11 wedge compression fracture when compared to 08/10/2021. No new fractures nor n ew bone lesions identified. RADIATION DOSE DELIVERED: 311.81mGy.cm Total DLP DATA REPOSITORY: All CT scans at this facility are submitted to the National Radiology Data Registry (NRDR) Dose Index Registry (DIR) with the [employer] ([employer]). RADIATION OPTIMIZATION: All CT scans at this facility use at least one of these dose optimization te chniques: automated exposure control; mA and/or kV adjustment per patient size (includes targeted exa ms where dose is matched to clinical indication); or iterative reconstruction.
[2022-10-17] MEDS: Omnipaque 350 MG/ML 500 ML BTL-Imaging package IJ (09:57)
[2022-10-17] MEDS: Normal Saline - Diluent 50 ML VIAL IJ (09:58)
== END 2022-10-17 01:50 ==
LOC: DI 01:31
PROVIDERS: PCP Internal Medicine; Visit Provider Internal Medicine Hematology & Oncology
DX: C34.31 Malignant neoplasm of lower lobe, right bronchus or lung (principal); J90 Pleural effusion, not elsewhere classified; R59.0 Localized enlarged lymph nodes; K76.89 Other specified diseases of liver
CPT/HCPCS: 71260

== ENCOUNTER 2022-10-19 14:18 | Emergency (ER) | payer MEDICARE, SELFPAY ==
[2022-10-19 14:29] VITALS: BP 168/88; PULSE 94; RESP 17; TEMP 36.7; O2SAT 97
[2022-10-19] MEDS: MORPHine 10 MG/ML VIAL 2 MG IVP (14:54)
[2022-10-19 14:56] LABS: Abs Immature Grans 0.18 10^3/uL (0.0-0.06); Absolute Basophil Count 0.02 10^3/uL (0.0-0.2); Absolute Eosinophil Count 0.02 10^3/uL (0.0-0.7); Absolute Lymphocyte Count 0.36 10^3/uL (1.2-3.4); Absolute Monocyte Count 0.41 10^3/uL (0.1-0.8); Basophils % 0.1; Eosinophils % 0.1; HCT 40.2 % (36.0-46.0); HGB 13.5 g/dL (11.2-15.7); Immature Grans % 1.2; Lymphocytes % 2.4; MCH 29.9 pg (27.0-33.0); MCHC 33.6 % (32.0-36.0); MCV 89 fL (80-95); Monocytes % 2.7; Neutrophils % 93.5; Platelet Count 198 10^3/uL (130-400); RBC 4.52 10^6/uL (3.93-5.22); RDW 13.3 % (11.7-14.6); RDW-SD 43.3 fL; WBC 15.19 10^3/uL (4.4-10.8)
[2022-10-19 15:11] LABS: ALT 21 U/L (14-59); AST 12 U/L (15-37); Albumin 3.2 g/dL (3.4-5.0); Alkaline Phosphatase 121 U/L (46-116); Anion Gap 9.7 mmol/L (3-11); BUN 14 mg/dL (7-18); Bilirubin, Total 0.4 mg/dL (0.2-1.0); CO2 29.3 mmol/L (21.0-32.0); CREATININE 0.9 mg/dL (0.55-1.02); Calcium 9.1 mg/dL (8.5-10.1); Chloride 102 mmol/L (98-107); Estimated GFR 68.77 (mL/min/1.73m2); Glucose 124 mg/dL (74-106); Potassium 3.6 mmol/L (3.5-5.1); Sodium 141 mmol/L (136-145); Total Protein 7.7 g/dL (6.4-8.2)
--- NOTE | 2022-10-19 15:15 | DI.CT_ITS ---
Exam(s) CT ABDOMEN PELVIS W EXAM: CT ABDOMEN PELVIS W CLINICAL HISTORY: pelvic fracture, evaluate for hematoma or unstable. TECHNIQUE: Imaging Protocol: Axial computed tomography images with coronal and sagittal reformatted images were created and reviewed CONTRAST MATERIAL: Intravenous: Omnipaque 350 Contrast volume:100 ml Oral: no COMPARISON: CT CT CHEST/ABD/PEL W from 08/10/[address] CHEST W LEB from 06/15/[address] CHEST W from 10/17/2022 FINDINGS: ABDOMEN: Lung Bases: Small right pleural effusion and adjacent masslike density unchanged from prior chest CT. Liver: Normal density. Innumerable tiny E liver lesions, likely cysts, unchanged. Gallbladder and biliary tract: Question of gallbladder sludge. No radiodense calculus or dilation. Pancreas: Normal density, no abnormal calcifications or inflammatory process. Spleen: Normal. Kidneys: Normal size, contour and axis. No radiodense stones or obstructive uropathy. No suspicious m asses seen. Adrenal glands: No masses seen. Abdominal Aorta: Abdominal portion non-dilated. Atherosclerotic changes. Soft tissues: Unremarkable. PELVIS: Bladder: No gross wall thickening. No calculi.No focal mass. Bowel: Diverticulosis. No obstruction. No bowel wall thickening. Appendix normal. Peritoneal cavity: No ascites, collection or mesenteric inflammatory response. Bones: Fractures of the left superior and inferior pubic rami. No surrounding hematoma. Fracture, n ondisplaced anterior left acetabulum. Probable nondisplaced left sacral fracture. Stable old mild c ompression fracture of the superior endplate of L3. Reproductive organs: Within normal limits. Lymph nodes: Unremarkable. Impression: Left-sided pelvic fractures. No surrounding hematoma. No acute intra-abdominal or pelvic abnormalit y. RADIATION DOSE DELIVERED: 611.41mGy.cm Total DLP DATA REPOSITORY: All CT scans at this facility are submitted to the National Radiology Data Registry (NRDR) Dose Index Registry (DIR) with the [employer] (ACR). RADIATION OPTIMIZATION: All CT scans at this facility use at least one of these dose optimization te chniques: automated exposure control; mA and/or kV adjustment per patient size (includes targeted exa ms where dose is matched to clinical indication); or iterative reconstruction.
--- NOTE | 2022-10-19 15:28 | DI.RAD_ITS ---
Exam(s) XR HIP LT COMPLETE AP PELVIS EXAM: XR HIP LT COMPLETE AP PELVIS INDICATION: fall, hip injury. COMPARISON: No exams were available for comparison TECHNIQUE: 2D digital imaging was performed. Two views. FINDINGS: Mildly displaced fractures of the left superior and inferior pubic rami. No femoral fracture. No sa cral fracture is visible. The SI joints and pubic symphysis are not widened. IMPRESSION: Fractures of the left superior and inferior pubic rami. DATA REPOSITORY: RADIATION DOSE DELIVERED:
--- NOTE | 2022-10-19 16:11 | ED.GENADUL_ITS ---
Discharge Plan Disposition Patient Disposition: Home Discharge Details Clinical Impression: Closed fracture of pubic ramus Primary Care Provider: Nitish Mccoy ED Provider: Saeid Ray Home Meds and New Rx's Prescriptions: Continued atorvastatin 20 mg Tablet 40 mg PO QPM aspirin 81 mg Tablet,Delayed Release (Dr/Ec) 81 mg PO DAILY acetaminophen [Tylenol Extra Strength] 500 mg Tablet 1,000 mg PO .Q6HRS PRN prochlorperazine maleate 10 mg tablet 6 mg PO Q6H PRN Patient Comments: TAKE ONE TABLET BY MOUTH EVERY 6 HOURS NEEDED FOR NAUSEA dexamethasone 4 mg tablet See Rx Instructions .ROUTE .COMPLEX Patient Comments: TAKE ONE TABLET BY MOUTH THE DAY BEFORE CHEMOTHERAPY AND THE DAY AFTER CHEMOTHERAPY Rx Instructions: Take 1 tab PO the day before and the day chemotherapy hydromorphone 4 mg tablet 4 mg PO Q4H Discharge Instructions Instructions: Pelvic Fracture (ED) Additional Instructions: Please continue to take your pain medication as prescribed and also please add in the acetaminophen. Continue also with your daily aspirin along with your other normal medications. You may perform weightbearing activities as tolerated but please use a walker until cleared by orthopedist given the pubic fracture. Return to the emergency department as needed for any new or significant wors ening of symptoms. Stand Alone Forms: Work Release Referrals: [facility] [Provider Group] (Please call the office tomorrow afternoon for arrangement of follow-up appointment) Discharge Data Discharge Date/Time-TO BE ENTERED AT DEPARTURE: 10/19/22 18:12 Medical Decision Making <CRYSTAL Shearer - Last Filed: 10/21/22 09:37> Patient presents for fall, with hip and pelvic pain. She has a nontender abdominal exam and takes aspirin without anticoagulation She denies any head injury or loss of conscious. She has inferior and superior pubic rami fracture on x-ray per radiology interpretation my review This is considered a stable fracture, will order CT scan given her age and cancer history. To evaluate for additional fracture versus intra-abdominal trauma with CT abdomen and pelvis, will transition care to [facility] pending CT, ambulatory trial <Saeid Ray NP - Last Filed: 10/19/22 21:37> Patient presents for fall, with hip and pelvic pain. She has a nontender abdominal exam and takes aspirin without anticoagulation She denies any head injury or loss of conscious. She has inferior and superior pubic rami fracture on x-ray per radiology interpretation my review This is considered a stable fracture, will order CT scan given her age and cancer history. To evaluate for additional fracture versus intra-abdominal trauma with CT abdomen and pelvis, will transition care to [facility] pending CT, ambulatory trial 1600-please see previous documentation by Wanda ROJAS. Patient signed out to me pending CT imaging. Reviewed CT imaging which does show a left-sided pelvic fracture no hematoma or intra-abdominal pathology. Patient already on hydromorphone and she was encouraged to use acetaminophen as well for pain control. Did review case with orthopedist who stated this is a stable pubic rami fracture and that patient could be ambulatory trial with walker and discharge for disposition. Patient was able to walk greater than 5 steps with walker while stated significant pain was able to tolerate weightbearing activities with walker. Will discharge patient home on orthopedic list for follow-up. After discussion of diagnosis and plan of care patient has no further needs, questions, or concer ns and states clear understanding to return to the emergency department for any worsening symptoms. This documentation was generated using [place] dictation system, please disregard any oddities of phrase or misspellings. Imaging Data Radiologic Study #2: Imaging: CT Scan Radiologist's impression: Exam(s) CT ABDOMEN PELVIS W EXAM: CT ABDOMEN PELVIS W CLINICAL HISTORY: pelvic fracture, evaluate for hematoma or unstable. TECHNIQUE: Imaging Protocol: Axial computed tomography images with coronal and sagittal reformatted images were created and reviewed CONTRAST MATERIAL: Intravenous: Omnipaque 350 Contrast volume:100 ml Oral: no COMPARISON: CT CT CHEST/ABD/PEL W from 08/10/[address] CHEST W LEB from 06/15/[address] CHEST W from 10/17/2022 FINDINGS: ABDOMEN: Lung Bases: Small right pleural effusion and adjacent masslike density unchanged from prior chest CT. Liver: Normal density. Innumerable tiny E liver lesions, likely cysts, unchanged. Gallbladder and biliary tract: Question of gallbladder sludge. No radiodense calculus or dilation. Pancreas: Normal density, no abnormal calcifications or inflammatory process. Spleen: Normal. Kidneys: Normal size, contour and axis. No radiodense stones or obstructive uropathy. No suspicious masses seen. Adrenal glands: No masses seen. Abdominal Aorta: Abdominal portion non-dilated. Atherosclerotic changes. Soft tissues: Unremarkable. PELVIS: Bladder: No gross wall thickening. No calculi.No focal mass. Bowel: Diverticulosis. No obstruction. No bowel wall thickening. Appendix normal. Peritoneal cavity: No ascites, collection or mesenteric inflammatory response. Bones: Fractures of the left superior and inferior pubic rami. No surrounding hematoma. Fracture, nondisplaced anterior left acetabulum. Probable nondisplaced left sacral fracture. Stable old mild compression fracture of the superior endplate of L3. Reproductive organs: Within normal limits. Lymph nodes: Unremarkable. Impression: Left-sided pelvic fractures. No surrounding hematoma. No acute intra-abdominal or pelvic abnormality. HPI <CRYSTAL Shearer - Last Filed: 10/21/22 09:37> General Date/Time Provider Initiated Documentation: 10/19/22 14:36 . HPI Narrative: This 72-year-old female presents with report of fall, tripped over her dogs landing on her left side, now having difficulty ambulating secondary to discomfort. Of note, she received her first dose of chemotherapy for lung cancer yesterday, she feels well from a respiratory standpoint. This was strictly mechanical fall per patient. She was unable to ambulate after the event. She denies any additional trauma, denies head trauma or neck pain. Denies any back pain. Denies any abdominal pain notable blood in her urine. Denies history of anticoagulation, does take aspirin. Related Data Home Medications Medication Instructions Recorded Confirmed aspirin 81 mg tablet,delayed 81 mg PO DAILY 07/28/21 10/19/22 release atorvastatin 20 mg tablet 40 mg PO QPM 07/28/21 10/19/22 acetaminophen 500 mg tablet 1,000 mg PO .Q6HRS PRN 08/10/21 10/19/22 (Tylenol Extra Strength) dexamethasone 4 mg tablet See Rx Instructions .Route .COMPLEX 10/19/22 10/19/22 hydromorphone 4 mg tablet 4 mg PO Q4H 10/19/22 10/19/22 prochlorperazine maleate 10 mg 6 mg PO Q6H PRN 10/19/22 10/19/22 tablet Allergies Allergy/AdvReac Type Severity Reaction Status Date / Time No Known Allergies Allergy Unverified 10/19/22 14:33 General Stated Complaint: Orthopedic JOLLY: 4 PFSH <CRYSTAL Shearer - Last Filed: 10/21/22 09:37> All Active Problems (Updated 10/19/22 @ 17:49 by Saeid Ray NP) Lumbago (Acute) Closed fracture of pubic ramus (Acute) Social History Smoking/Tobacco Use Status: Current every day Tobacco Type: cigarettes Smoking risk assessment performed?: Yes Alcohol Intake: never Drug use: Never Substance use type: does not use Do you feel safe at home: Yes Do you feel safe in your relationship?: Yes Exam <CRYSTAL Shearer - Last Filed: 10/21/22 09:37> Narrative Exam Narrative: 72-year-old female fully alert and oriented, pupils equal round reactive to light and accommodation, no midline neck tenderness, lungs clear to auscultation without any palpable chest tenderness, rate rhythm regular cardiovascularly, no palpable abdominal tenderness, pelvic tenderness on left hip and in her groin region without any crepitus or obvious deformity, fully alert and oriented, distal pulses and sensation intact Course <CRYSTAL Shearer - Last Filed: 10/21/22 09:37> Vital Signs Vital signs: Vital Signs Temperature 36.7 C 10/19/22 14:29 Pulse 94 H 10/19/22 14:29 Respiratory Rate 17 10/19/22 14:29 Blood Pressure 168/88 H 10/19/22 14:29 Pulse Oximetry 97 10/19/22 14:29 Temperature 36.7 C 10/19/22 14:29 Temperature Source Oral 10/19/22 14:29 Pulse 94 H 10/19/22 14:29 Respiratory Rate 17 10/19/22 14:29 Respiratory Effort Normal 10/19/22 14:32 Blood Pressure 168/88 H 10/19/22 14:29 Pulse Oximetry 97 10/19/22 14:29 Pain Level 6 10/19/22 14:54 Lab/Test Results Lab/Test Results: Laboratory Tests Range/Units 10/19/22 10/19/22 14:51 14:51 WBC (4.4-10.8) 10^3/uL 15.19 H RBC (3.93-5.22) 10^6/uL 4.52 Hgb (11.2-15.7) g/dL 13.5 Hct (36.0-46.0) % 40.2 MCV (80-95) fL 89 MCH (27.0-33.0) pg 29.9 MCHC (32.0-36.0) % 33.6 RDW (11.7-14.6) % 13.3 Plt Count (130-400) 10^3/uL 198 MPV (8.0-11.0) fL 8.0 Immature Gran % 1.2 Neutrophils % 93.5 Lymphocytes % 2.4 Monocytes % 2.7 Eosinophils % 0.1 Basophils % 0.1 Nucleated RBC % (0.0-0.3) % 0.0 Absolute Neutrophils (1.2-6.7) 10^3/uL 14.20 H Absolute Lymphocytes (1.2-3.4) 10^3/uL 0.36 L Absolute Monocytes (0.1-0.8) 10^3/uL 0.41 Absolute Eosinophils (0.0-0.7) 10^3/uL 0.02 Absolute Basophils (0.0-0.2) 10^3/uL 0.02 Sodium (136-145) mmol/L 141 Potassium (3.5-5.1) mmol/L 3.6 Chloride (98-107) mmol/L 102 Carbon Dioxide (21.0-32.0) mmol/L 29.3 Anion Gap (3-11) mmol/L 9.7 BUN (7-18) mg/dL 14 Creatinine (0.55-1.02) mg/dL 0.9 Est GFR (CKD-EPI 2020) (mL/min/1.73m2) 68.77 Glucose (74-106) mg/dL 124 H Calcium (8.5-10.1) mg/dL 9.1 Total Bilirubin (0.2-1.0) mg/dL 0.4 AST (15-37) U/L 12 L ALT (14-59) U/L 21 Alkaline Phosphatase (46-116) U/L 121 H Total Protein (6.4-8.2) g/dL 7.7 Albumin (3.4-5.0) g/dL 3.2 L Sign Out <CRYSTAL Shearer - Last Filed: 10/21/22 09:37> Sign Out Data: Sign Out Comment: pending ct abd/pelvis to eval for intraabd trauma with pelvic fx, pain meds, amb trial with walker/ortho consult Last updated by Wanda Hu PA at 10/19/22 16:15
[2022-10-19] MEDS: Omnipaque 350 MG/ML 100 ML BTL IJ (16:19)
[2022-10-19] MEDS: Normal Saline - Diluent 50 ML VIAL IJ (16:19)
[2022-10-19] MEDS: Normal Saline Flush 10 ML SYR IVP (16:23)
[2022-10-19 18:08] VITALS: BP 182/90; PULSE 91; RESP 18; TEMP 36.8; O2SAT 91
[2022-10-19] MEDS: Acetaminophen 500 MG TAB PO (18:11)
[2022-10-19] MEDS: HYDROmorphone 4 MG TAB PO (18:11)
== END 2022-10-19 18:12 | disposition home or self-care (01) ==
PROVIDERS: Physician Assistant; Emergency Provider Nurse Practitioner Family; PCP Internal Medicine
DX: S32.592A Other specified fracture of left pubis, initial encounter for closed fracture (principal); W01.0XXA Fall on same level from slipping, tripping and stumbling without subsequent striking against object, initial encounter
CPT/HCPCS: 36415; 80053; 96374; 99285; 73502; 74177; 85025; 99284; J2270; J3490

== ENCOUNTER 2022-11-13 14:39 | Outpatient (REF) | payer MEDICARE, SELFPAY ==
[2022-11-13 09:14] LABS: Abs Immature Grans 0.08 10^3/uL (0.0-0.06); Absolute Basophil Count 0.06 10^3/uL (0.0-0.2); Absolute Lymphocyte Count 1.65 10^3/uL (1.2-3.4); Absolute Monocyte Count 0.84 10^3/uL (0.1-0.8); Absolute Neutrophil Count 6.56 10^3/uL (1.2-6.7); Basophils % 0.7; HCT 35.1 % (36.0-46.0); HGB 11.5 g/dL (11.2-15.7); Immature Grans % 0.9; MCHC 32.8 % (32.0-36.0); MCV 88 fL (80-95); MPV 8.3 fL (8.0-11.0); Monocytes % 9.1; Neutrophils % 71.3; Platelet Count 249 10^3/uL (130-400); RBC 3.97 10^6/uL (3.93-5.22); RDW 14.5 % (11.7-14.6); RDW-SD 45.4 fL; WBC 9.19 10^3/uL (4.4-10.8)
[2022-11-13 09:35] LABS: ALT 23 U/L (14-59); AST 18 U/L (15-37); Albumin 2.8 g/dL (3.4-5.0); Alkaline Phosphatase 220 U/L (46-116); Anion Gap 7.1 mmol/L (3-11); BUN 13 mg/dL (7-18); Bilirubin, Total 0.3 mg/dL (0.2-1.0); CO2 29.9 mmol/L (21.0-32.0); CREATININE 0.7 mg/dL (0.55-1.02); Chloride 101 mmol/L (98-107); Estimated GFR 92.98 (mL/min/1.73m2); FREE T4 1.25 ng/dL (0.76-1.46); Glucose 99 mg/dL (74-106); Magnesium 2.1 mg/dL (1.8-2.4); Potassium 3.5 mmol/L (3.5-5.1); Sodium 138 mmol/L (136-145); TSH 2.56 uIU/mL (0.36-3.74); Total Protein 7.3 g/dL (6.4-8.2)
== END 2022-11-13 14:40 | disposition home or self-care (01) ==
LOC: LBN 14:39
PROVIDERS: PCP Internal Medicine; Visit Provider Internal Medicine Medical Oncology
DX: C34.31 Malignant neoplasm of lower lobe, right bronchus or lung (principal); Z79.899 Other long term (current) drug therapy
CPT/HCPCS: 80053; 83735; 84439; 84443; 85025

== ENCOUNTER 2022-11-20 12:00 | Outpatient (CLI) | payer MEDICARE, SELFPAY ==
--- NOTE | 2022-11-20 10:45 | DI.RAD_ITS ---
Exam(s) XR PELVIS AP EXAM: XR PELVIS AP CLINICAL HISTORY: f/u fx. TECHNIQUE: 2D digital imaging was performed. One view. COMPARISON: CT CT ABDOMEN PELVIS W from 10/19/2022 CR XR HIP LT COMPLETE AP PELVIS from 10/19/2022 FINDINGS: BONES: There has been no significant change in appearance of the left superior and inferior pubic vernon i fractures given the change in paste patient position. The left sacral fracture and left anterior a cetabular fractures are best appreciated on the CT scan. No bony destructive lesion is seen. JOINTS: No dislocation present. SOFT TISSUE: Atherosclerosis. IMPRESSION: Stable left pubic rami fractures. DATA REPOSITORY: RADIATION DOSE DELIVERED:
== END 2022-11-20 12:01 | disposition home or self-care (01) ==
LOC: DIORS 12:04
PROVIDERS: PCP Internal Medicine; Referring Provider Internal Medicine; Visit Provider Physician Assistant
DX: S32.592D Other specified fracture of left pubis, subsequent encounter for fracture with routine healing (principal); W01.0XXD Fall on same level from slipping, tripping and stumbling without subsequent striking against object, subsequent encounter
CPT/HCPCS: 99213; 72170

== ENCOUNTER 2022-11-28 01:21 | Outpatient (CLI) | payer MEDICARE, SELFPAY ==
--- NOTE | 2022-11-28 | DI.CT_ITS ---
Exam(s) CT CHEST W EXAM: CT CHEST W CLINICAL HISTORY: RLL LUNG CANCER C34.31 RESTAGING TECHNIQUE: Imaging Protocol: Axial computed tomography images with coronal and sagittal reformatted images were created and reviewed CONTRAST MATERIAL: Intravenous: Omnipaque 350Contrast volume:70 mL. COMPARISON: CT CT CHEST W from 10/17/2022 FINDINGS: Tracheobronchial tree: Patent where visualized. Pulmonary parenchyma: Emphysematous changes are seen in the lungs. There has been an interval increa se in size of the right pleural effusion though a does remain small. The mass/infiltrate in the righ t lower lobe posteriorly is unchanged. There are no new infiltrates present. The small nodules in t he right upper lobe are unchanged. Mediastinum and Joya: No dominant adenopathy or fluid collection. The esophagus is unremarkable. Thyroid gland: Unremarkable. Pleura: There has been slight interval increase in size of the small right pleural effusion. No left pleural effusion is present. There is no pneumothorax. Heart: The heart is not dilated. Coronary artery calcification is present. No pericardial effusion. Aorta: Thoracic aorta non-dilated. Atherosclerosis is present. Pulmonary arteries: Due to the bolus timing, evaluation for pulmonary emboli is limited. No large ce ntral pulmonary embolus is seen. Upper abdomen: There again seen numerous hepatic cysts. Lymph nodes: Within normal limits. Bones: Within normal limits for the patient's age. There is a stable T11 compression deformity. The re is now sclerosis seen in the medial aspect of the right clavicle. There also appears to be a frac ture so seated with the superior aspect of the medial right clavicle. The findings are suspicious fo r pathologic fracture. Soft tissues: Unremarkable. IMPRESSION: 1. Stable mass/infiltrate in the right lower lobe. Stable small right upper lobe pulmonary nodules. 2. Slight interval increase in size of the small right pleural effusion since the prior examination. 3. Interval nondisplaced fracture involving the medial right clavicle. There is now some sclerosis i n the medial clavicle and pathologic fracture should be considered. Unexpected findings RADIATION DOSE DELIVERED: 347.59mGy.cm Total DLP DATA REPOSITORY: All CT scans at this facility are submitted to the National Radiology Data Registry (NRDR) Dose Index Registry (DIR) with the [employer] (ACR). RADIATION OPTIMIZATION: All CT scans at this facility use at least one of these dose optimization te chniques: automated exposure control; mA and/or kV adjustment per patient size (includes targeted exa ms where dose is matched to clinical indication); or iterative reconstruction.
[2022-11-28] MEDS: Omnipaque 350 MG/ML 100 ML BTL 70 ML IJ (10:58)
[2022-11-28] MEDS: Normal Saline - Diluent 50 ML VIAL IJ (10:59)
== END 2022-11-28 01:41 ==
LOC: DI 01:21
PROVIDERS: PCP Internal Medicine; Visit Provider Internal Medicine Medical Oncology
DX: C34.31 Malignant neoplasm of lower lobe, right bronchus or lung (principal)
CPT/HCPCS: 71260; J3490

== ENCOUNTER 2022-12-04 01:23 | Outpatient (CLI) | payer MEDICARE, SELFPAY ==
[2022-12-04 08:17] LABS: Abs Immature Grans 0.02 10^3/uL (0.0-0.06); Absolute Basophil Count 0.02 10^3/uL (0.0-0.2); Absolute Eosinophil Count 0.02 10^3/uL (0.0-0.7); Absolute Lymphocyte Count 1.29 10^3/uL (1.2-3.4); Absolute Monocyte Count 0.68 10^3/uL (0.1-0.8); Absolute Neutrophil Count 2.93 10^3/uL (1.2-6.7); Basophils % 0.4; Eosinophils % 0.4; HCT 35.5 % (36.0-46.0); HGB 11.5 g/dL (11.2-15.7); Immature Grans % 0.4; MCH 29.6 pg (27.0-33.0); MCHC 32.4 % (32.0-36.0); MCV 91 fL (80-95); MPV 8.6 fL (8.0-11.0); Monocytes % 13.7; Neutrophils % 59.1; Platelet Count 136 10^3/uL (130-400); RBC 3.89 10^6/uL (3.93-5.22); RDW 16.1 % (11.7-14.6); RDW-SD 51.9 fL; WBC 4.96 10^3/uL (4.4-10.8)
[2022-12-04 08:41] LABS: ALT 15 U/L (14-59); AST 15 U/L (15-37); Albumin 2.9 g/dL (3.4-5.0); Alkaline Phosphatase 188 U/L (46-116); Anion Gap 6.2 mmol/L (3-11); BUN 6 mg/dL (7-18); Bilirubin, Total 0.3 mg/dL (0.2-1.0); CO2 29.8 mmol/L (21.0-32.0); CREATININE 0.8 mg/dL (0.55-1.02); Chloride 104 mmol/L (98-107); Estimated GFR 79.22 (mL/min/1.73m2); Glucose 89 mg/dL (74-106); Sodium 140 mmol/L (136-145); TSH 1.23 uIU/mL (0.36-3.74); Total Protein 7.1 g/dL (6.4-8.2)
[2022-12-04 09:35] LABS: Potassium 2.9 mmol/L (3.5-5.1)
== END 2022-12-04 01:24 | disposition home or self-care (01) ==
LOC: LBO 01:23
PROVIDERS: PCP Internal Medicine; Visit Provider Internal Medicine Medical Oncology
DX: C34.31 Malignant neoplasm of lower lobe, right bronchus or lung (principal); Z79.899 Other long term (current) drug therapy
CPT/HCPCS: 36415; 80053; 83735; 84439; 84443; 85025

== ENCOUNTER 2022-12-25 01:59 | Outpatient (RCR) | payer MEDICARE, SELFPAY ==
[2022-12-25] MEDS: Normal Saline Flush 10 ML SYR IVP (12:34)
[2022-12-25 12:51] LABS: Abs Immature Grans 0.09 10^3/uL (0.0-0.06); Absolute Basophil Count 0.01 10^3/uL (0.0-0.2); Absolute Monocyte Count 0.17 10^3/uL (0.1-0.8); Absolute Neutrophil Count 3.81 10^3/uL (1.2-6.7); Basophils % 0.2; HCT 33.5 % (36.0-46.0); HGB 11.3 g/dL (11.2-15.7); Lymphocytes % 10.9; MCH 31.2 pg (27.0-33.0); MCHC 33.7 % (32.0-36.0); MCV 93 fL (80-95); MPV 8.8 fL (8.0-11.0); Monocytes % 3.7; Neutrophils % 83.2; Platelet Count 187 10^3/uL (130-400); RBC 3.62 10^6/uL (3.93-5.22); RDW-SD 60.1 fL; WBC 4.58 10^3/uL (4.4-10.8)
[2022-12-25 13:14] LABS: ALT 23 U/L (14-59); AST 15 U/L (15-37); Albumin 3.1 g/dL (3.4-5.0); Alkaline Phosphatase 178 U/L (46-116); Anion Gap 10.9 mmol/L (3-11); BUN 6 mg/dL (7-18); Bilirubin, Total 0.3 mg/dL (0.2-1.0); CO2 25.1 mmol/L (21.0-32.0); CREATININE 0.9 mg/dL (0.55-1.02); Calcium 8.9 mg/dL (8.5-10.1); Chloride 104 mmol/L (98-107); Estimated GFR 68.77 (mL/min/1.73m2); FREE T4 1.06 ng/dL (0.76-1.46); Glucose 137 mg/dL (74-106); Magnesium 1.8 mg/dL (1.8-2.4); Sodium 140 mmol/L (136-145); TSH 0.21 uIU/mL (0.36-3.74); Total Protein 7.1 g/dL (6.4-8.2)
[2022-12-25 13:20] LABS: Potassium 2.9 mmol/L (3.5-5.1)
== END 2023-01-10 23:59 | disposition home or self-care (01) ==
LOC: INF 01:59
PROVIDERS: PCP Internal Medicine; Visit Provider Internal Medicine Medical Oncology
DX: C34.31 Malignant neoplasm of lower lobe, right bronchus or lung (principal); Z45.2 Encounter for adjustment and management of vascular access device
CPT/HCPCS: 36591; 80053; 83735; 84439; 84443; 85025

== ENCOUNTER 2023-02-01 06:45 | Emergency (ER) | payer MEDICARE, SELFPAY ==
[2023-02-01] VITALS (32 sets, daily range): BP systolic 116–142; BP diastolic 60–98; PULSE 81–107; RESP 12–27; O2SAT 96–100
--- NOTE | 2023-02-01 06:45 | RT.EKG_ITS ---
APPROVED REPORT Exam: Resting ECG Reason for Exam: sob Patient Location: E HR:97 bpm ECG Measurements Heart Rate 97 AXIS AK 121 P 47 QRSd 75 QRS 34 QT 353 T 13 QTc 445 Conclusion Sinus rhythm...normal P axis, V-rate 60- 99 Atrial premature complex...SV complex w/ short R-R interval PHysician: no stemi
--- NOTE | 2023-02-01 06:45 | DI.CT_ITS ---
Exam(s) CT CHEST PE CTA EXAM: CT CHEST PE CTA CLINICAL HISTORY: SOB, lung Ca, r/o PE. TECHNIQUE: Imaging Protocol: Axial CT angiography was performed with multi-slice acquisition and mu lti-planar reconstructions as well as axial, coronal and sagittal MIP reconstructions. CONTRAST MATERIAL: Intravenous: Omnipaque 350 Contrast volume:100 ml COMPARISON: CT CT CHEST W from 11/28/2022 FINDINGS: Pulmonary Arteries: No evidence of filling defect to suggest pulmonary emboli. Tracheobronchial tree: Patent where visualized. Mediastinum and Joya: No dominant adenopathy or fluid collection. Pulmonary parenchyma: Underlying emphysematous changes greater in the upper lobes. Stable area of sc arring in the right lung apex. No discrete mass visible on today's exam. Right basilar atelectasis. Pleura: Trace right pleural effusion, improvement from prior. No pneumothorax. Heart: The heart is not dilated. coronary artery calcifications are seen. Aorta: Ascending aorta measures 3.3 cm. No aneurysm. No dissection. Atherosclerotic changes. Upper abdomen: Innumerable tiny low-density lesions, presumed cysts. Bones: Stable T11 severe compression fracture. Stable appearance sclerosis in the medial clavicle an d nondisplaced fracture. Tubes, Catheters, and Lines: Port over right upper chest wall. IMPRESSION: No evidence of pulmonary embolism or other acute abnormality. Decrease in size of right pleural effusion. Previously noted right basilar mass no longer discretely visible. Right basilar atelectasis. Findings called to Alaina Field, emergency department provider. RADIATION DOSE DELIVERED: 258.01mGy.cm Total DLP DATA REPOSITORY: All CT scans at this facility are submitted to the National Radiology Data Registry (NRDR) Dose Index Registry (DIR) with the [employer] (ACR). RADIATION OPTIMIZATION: All CT scans at this facility use at least one of these dose optimization te chniques: automated exposure control; mA and/or kV adjustment per patient size (includes targeted exa ms where dose is matched to clinical indication); or iterative reconstruction.
[2023-02-01] MEDS: Albuterol/Ipratropium 3 ML UPD VIAL UPD (07:01)
[2023-02-01 07:04] LABS: BE (Venous) 7 mmol/L (-2-3); HCO3 (Venous) 31 mmol/L (23-28); O2 Sat (Venous) 46 %; TCO2 (Venous) 30 mmol/L (24-29); pCO2 (Venous) 50 mmHg (41-51); pH (Venous) 7.41 (7.31-7.41); pO2 (Venous) 26 mmHg
[2023-02-01 07:06] LABS: Abs Immature Grans 0.04 10^3/uL (0.0-0.06); Absolute Basophil Count 0.01 10^3/uL (0.0-0.2); Absolute Lymphocyte Count 0.61 10^3/uL (1.2-3.4); Absolute Monocyte Count 0.49 10^3/uL (0.1-0.8); Absolute Neutrophil Count 3.02 10^3/uL (1.2-6.7); Basophils % 0.2; Eosinophils % 2.3; HCT 29.7 % (36.0-46.0); HGB 9.9 g/dL (11.2-15.7); Immature Grans % 0.9; Lymphocytes % 14.3; MCH 33.8 pg (27.0-33.0); MCHC 33.3 % (32.0-36.0); MCV 101 fL (80-95); MPV 8.7 fL (8.0-11.0); Monocytes % 11.5; Neutrophils % 70.8; Platelet Count 160 10^3/uL (130-400); RBC 2.93 10^6/uL (3.93-5.22); RDW 16.2 % (11.7-14.6); RDW-SD 58.4 fL; WBC 4.27 10^3/uL (4.4-10.8)
--- NOTE | 2023-02-01 07:07 | W.ED.GENAD ---
Discharge Plan Discharge Details Chief Complaint: SOB Primary Care Provider: Nitish Mccoy ED Provider: Jamarcus Martin Home Meds and New Rx's Prescriptions: No Action atorvastatin 20 mg Tablet 40 mg PO QPM aspirin 81 mg Tablet,Delayed Release (Dr/Ec) 81 mg PO DAILY acetaminophen [Tylenol Extra Strength] 500 mg Tablet 1,000 mg PO .Q6HRS PRN prochlorperazine maleate 10 mg tablet 6 mg PO Q6H PRN Patient Comments: TAKE ONE TABLET BY MOUTH EVERY 6 HOURS NEEDED FOR NAUSEA dexamethasone 4 mg tablet See Rx Instructions .ROUTE .COMPLEX Patient Comments: TAKE ONE TABLET BY MOUTH THE DAY BEFORE CHEMOTHERAPY AND THE DAY AFTER CHEMOTHERAPY Rx Instructions: Take 1 tab PO the day before and the day chemotherapy hydromorphone 4 mg tablet 4 mg PO Q4H Medical Decision Making This is a 72-year-old female with a past medical history of 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 She presents today via EMS for chest pain and shortness of breath. Patient states that yesterday all throughout the day she felt short of breath with a odd pressure/punching like sensation to her chest. This continued throughout the day and then got worse at night leading into this morning. Symptoms appear to be slightly improved when she gets up and walks around. There is no worsening or exacerbation when she leans forward or lays back. She denies any pleuritic pain, but does admit to pain in general in her chest. She denies any fever or chills. She denies a history of cardiac disease. She denies any vomiting or diarrhea. EMS did give 1 nitroglycerin and a 324 aspirin, and these did not improve her symptoms. She denies any history of blood clots in the past. No other complaints at this time. No other modifying factors. Exam demonstrates well-appearing female, oxygen is in the low 90s, heart rate stable. Lung sounds are slightly diminished but otherwise clear. No calf tenderness. Differential is high for pulmonary embolism with her chemotherapy use, current cancer status, now shortness of breath. However differential also includes ACS. Symptoms appear inconsistent with dissection clinically at this time. We will rehydrate gently, get a CTA, evaluate for concerning etiologies, monitor closely and reassess. EKG shows no evidence of STEMI. Patient will be signed out to my colleague for follow-up on labs and CT imaging. HPI General Date/Time Provider Initiated Documentation: 02/01/23 06:54. HPI Narrative: This is a 72-year-old female with a past medical history of 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 She presents today via EMS for chest pain and shortness of breath. Patient states that yesterday all throughout the day she felt short of breath with a odd pressure/punching like sensation to her chest. This continued throughout the day and then got worse at night leading into this morning. Symptoms appear to be slightly improved when she gets up and walks around. There is no worsening or exacerbation when she leans forward or lays back. She denies any pleuritic pain, but does admit to pain in general in her chest. She denies any fever or chills. She denies a history of cardiac disease. She denies any vomiting or diarrhea. EMS did give 1 nitroglycerin and a 324 aspirin, and these did not improve her symptoms. She denies any history of blood clots in the past. No other complaints at this time. No other modifying factors. Related Data Home Medications Medication Instructions Recorded Confirmed aspirin 81 mg tablet,delayed 81 mg PO DAILY 07/28/21 11/22/22 release atorvastatin 20 mg tablet 40 mg PO QPM 07/28/21 11/22/22 acetaminophen 500 mg tablet 1,000 mg PO .Q6HRS PRN 08/10/21 11/22/22 (Tylenol Extra Strength) dexamethasone 4 mg tablet See Rx Instructions .Route .COMPLEX 10/19/22 11/22/22 hydromorphone 4 mg tablet 4 mg PO Q4H 10/19/22 11/22/22 prochlorperazine maleate 10 mg 6 mg PO Q6H PRN 10/19/22 11/22/22 tablet Allergies Allergy/AdvReac Type Severity Reaction Status Date / Time No Known Allergies Allergy Unverified 11/20/22 10:33 General Stated Complaint: SOB JOLLY: 2 Review of Systems All systems reviewed & are unremarkable except as noted in HPI and below PFSH All Active Problems Closed fracture of left pelvis (Acute) Lumbago (Acute) Social History Smoking/Tobacco Use Status: Former Tobacco Use Quit Date: 10/11/22 Smoking risk assessment performed?: Yes Alcohol Intake: never Drug use: Never Substance use type: does not use Do you feel safe at home: Yes Do you feel safe in your relationship?: Yes Additional Social history: Lives with Exam Narrative Exam Narrative: 1.Const: Well-nourished, Well-developed, appearing stated age 2.Eyes: PERRL, no conjunctival injection, and symmetrical lids. 3.ENT: Atraumatic external nose and ears. Moist MM. Neck: Symmetric, trachea midline, No thyromegaly. Mild bruise around her left orbit. No tenderness or signs of hyphema. No evidence of retinal hemorrhage or active bleeding. No other signs of significant cranial trauma. 4.CVS: +S1/S2, No murmurs or gallops. Peripheral pulses 2+ and equal in all extremities. Brisk capillary refill in all extremities. 5.RESP: Unlabored respiratory effort. Clear to auscultation bilaterally. No wheezes rales or rhonchi 6.GI: Soft, Nontender/Nondistended, No hepatosplenomegaly. No guarding or rebound. 7.MSK: Normocephalic/Atraumatic, Extremities w/o deformity or ttp No cyanosis or clubbing, Normal movement of all extremities, no calf tenderness 8.Skin: Warm, Dry. No rashes or lesions. 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 Sensation grossly intact, no focal neurologic deficits. 10.Psych: (AAO) x3. Appropriate mood and affect Course Vital Signs Vital signs: Vital Signs Pulse 96 H 02/01/23 06:46 Respiratory Rate 14 02/01/23 06:46 Blood Pressure 142/83 H 02/01/23 06:46 Pulse Oximetry 97 02/01/23 06:46 Temperature Source Temporal Artery Scan 02/01/23 06:46 Pulse 96 H 02/01/23 06:46 Respiratory Rate 14 02/01/23 06:46 Respiratory Effort Normal, Non-Labored 02/01/23 06:51 Blood Pressure 142/83 H 02/01/23 06:46 Blood Pressure Position Sitting 02/01/23 06:46 Pulse Oximetry 97 02/01/23 06:46 Oxygen Delivery Method Room Air 02/01/23 06:46 Oxygen Flow Rate 0 02/01/23 06:46 Pain Level 5 02/01/23 06:46 Lab/Test Results Lab/Test Results: Laboratory Tests Range/Units 02/01/23 06:55 VBG pH (7.31-7.41) 7.41 VBG pCO2 (41-51) mmHg 50 VBG pO2 mmHg 26 VBG HCO3 (23-28) mmol/L 31 H VBG Total CO2 (24-29) mmol/L 30 H VBG O2 Saturation % 46 VBG Base Excess (-2-3) mmol/L 7 H
[2023-02-01 07:23] LABS: PTT Activated 22.5 sec (21.5-31.9); Prothrombin Time 10.3 sec (9.3-11.0)
[2023-02-01 07:41] LABS: ALT 22 U/L (14-59); AST 25 U/L (15-37); Albumin 2.9 g/dL (3.4-5.0); Alkaline Phosphatase 139 U/L (46-116); Anion Gap 7.9 mmol/L (3-11); BUN 7 mg/dL (7-18); Bilirubin, Total 0.4 mg/dL (0.2-1.0); CO2 31.1 mmol/L (21.0-32.0); CREATININE 0.8 mg/dL (0.55-1.02); Calcium 8.7 mg/dL (8.5-10.1); Chloride 105 mmol/L (98-107); Estimated GFR 79.22 (mL/min/1.73m2); Glucose 128 mg/dL (74-106); NT-proBNP 236 pg/mL (<300); Potassium 3.3 mmol/L (3.5-5.1); Sodium 144 mmol/L (136-145); Troponin I < 50 ng/L (<or=60)
[2023-02-01 07:45] LABS: COVID-19 PCR Negative (Negative); Influenza A PCR Negative (Negative); Influenza B PCR Negative (Negative); RSV PCR Negative (Negative); Source Nasopharynx
--- NOTE | 2023-02-01 08:01 | ED.GENADUL_ITS ---
Discharge Plan Disposition Patient Disposition: Home Discharge Details Chief Complaint: SOB Clinical Impression: Mild shortness of breath, Metastatic cancer to lung, Anxiety Primary Care Provider: Nitish Mccoy ED Provider: Alaina Nieto Home Meds and New Rx's Prescriptions: New hydroxyzine HCl 25 mg tablet 25 mg PO QID PRNQty: 14 0RF No Action atorvastatin 20 mg Tablet 40 mg PO QPM aspirin 81 mg Tablet,Delayed Release (Dr/Ec) 81 mg PO DAILY Patient Comments: Not taking acetaminophen [Tylenol Extra Strength] 500 mg Tablet 1,000 mg PO .Q6HRS PRN prochlorperazine maleate 10 mg tablet 6 mg PO Q6H PRN Patient Comments: TAKE ONE TABLET BY MOUTH EVERY 6 HOURS NEEDED FOR NAUSEA dexamethasone 4 mg tablet See Rx Instructions .ROUTE .COMPLEX Patient Comments: TAKE ONE TABLET BY MOUTH THE DAY BEFORE CHEMOTHERAPY AND THE DAY AFTER CHEMOTHERAPY Rx Instructions: Take 1 tab PO the day before and the day chemotherapy hydromorphone 4 mg tablet 4 mg PO Q4H Discharge Instructions Instructions: Dyspnea (ED), Anxiety (ED) Referrals: Nitish Mccoy MD [Primary Care Provider] - 3 days Discharge Data Discharge Physician: Alaina Nieto Medical Decision Making 72-year-old female with history of metastatic lung cancer on chemotherapy presents for evaluation of chest pain and shortness of breath. Patient has been pain-free. EKG was unremarkable. CTA of chest was negative for pulmonary embolus. Laboratory studies with 2 troponin were unremarkable. Patient is reassured by these findings. Symptoms do not appear to be cardiac in nature at this time. She states that she just feels off. She thinks that this may be secondary to anxiety. She has not taken anything for anxiety in the past. She is agreeable to trial hydroxyzine. She was given a first dose now. I have recommended close follow-up with her doctors. She understands indications to return. HPI General Date/Time Provider Initiated Documentation: 02/01/23 06:54 . HPI Narrative: Assumed care of patient at 0800. 72-year-old female presented with episode of chest pain history of cancer. At this time awaiting repeat troponin and CTA of chest. Related Data Home Medications Medication Instructions Recorded Confirmed aspirin 81 mg tablet,delayed 81 mg PO DAILY 07/28/21 11/22/22 release atorvastatin 20 mg tablet 40 mg PO QPM 07/28/21 02/01/23 acetaminophen 500 mg tablet 1,000 mg PO .Q6HRS PRN 08/10/21 02/01/23 (Tylenol Extra Strength) dexamethasone 4 mg tablet See Rx Instructions .Route .COMPLEX 10/19/22 02/01/23 hydromorphone 4 mg tablet 4 mg PO Q4H 10/19/22 02/01/23 prochlorperazine maleate 10 mg 6 mg PO Q6H PRN 10/19/22 02/01/23 tablet hydroxyzine HCl 25 mg tablet 25 mg PO QID PRN #14 tabs 02/01/23 Previous Rx's Medication Instructions Recorded hydroxyzine HCl 25 mg tablet 25 mg PO QID PRN #14 tabs 02/01/23 Allergies Allergy/AdvReac Type Severity Reaction Status Date / Time No Known Allergies Allergy Unverified 02/01/23 09:50 General Stated Complaint: SOB JOLLY: 2 PFSH All Active Problems (Updated 02/01/23 @ 10:45 by Alaina Nieto MD) Mild shortness of breath (Acute) Metastatic cancer to lung (Acute) Anxiety (Chronic) Closed fracture of left pelvis (Acute) Lumbago (Acute) Social History Smoking/Tobacco Use Status: Former Tobacco Use Quit Date: 10/11/22 Smoking risk assessment performed?: Yes Alcohol Intake: never Drug use: Never Substance use type: does not use Do you feel safe at home: Yes Do you feel safe in your relationship?: Yes Additional Social history: Lives with Course Vital Signs Vital signs: Vital Signs Pulse 96 H 02/01/23 06:46 Respiratory Rate 14 02/01/23 06:46 Blood Pressure 142/83 H 02/01/23 06:46 Pulse Oximetry 97 02/01/23 06:46 Temperature Source Temporal Artery Scan 02/01/23 06:46 Pulse 96 H 02/01/23 06:46 Respiratory Rate 14 02/01/23 06:46 Respiratory Effort Normal, Non-Labored 02/01/23 06:51 Blood Pressure 142/83 H 02/01/23 06:46 Blood Pressure Position Sitting 02/01/23 06:46 Pulse Oximetry 97 02/01/23 06:46 Oxygen Delivery Method Room Air 02/01/23 06:46 Oxygen Flow Rate 0 02/01/23 06:46 Pain Level 5 02/01/23 06:46 Lab/Test Results Lab/Test Results: Laboratory Tests Range/Units 02/01/23 02/01/23 02/01/23 06:55 06:55 06:55 WBC (4.4-10.8) 10^3/uL RBC (3.93-5.22) 10^6/uL Hgb (11.2-15.7) g/dL Hct (36.0-46.0) % MCV (80-95) fL MCH (27.0-33.0) pg MCHC (32.0-36.0) % RDW (11.7-14.6) % Plt Count (130-400) 10^3/uL MPV (8.0-11.0) fL Immature Gran % Neutrophils % Lymphocytes % Monocytes % Eosinophils % Basophils % Nucleated RBC % (0.0-0.3) % Absolute Neutrophils (1.2-6.7) 10^3/uL Absolute Lymphocytes (1.2-3.4) 10^3/uL Absolute Monocytes (0.1-0.8) 10^3/uL Absolute Eosinophils (0.0-0.7) 10^3/uL Absolute Basophils (0.0-0.2) 10^3/uL PT (9.3-11.0) sec INR (0.9-1.1) APTT (21.5-31.9) sec VBG pH (7.31-7.41) 7.41 VBG pCO2 (41-51) mmHg 50 VBG pO2 mmHg 26 VBG HCO3 (23-28) mmol/L 31 H VBG Total CO2 (24-29) mmol/L 30 H VBG O2 Saturation % 46 VBG Base Excess (-2-3) mmol/L 7 H Sodium (136-145) mmol/L 144 Potassium (3.5-5.1) mmol/L 3.3 L Chloride (98-107) mmol/L 105 Carbon Dioxide (21.0-32.0) mmol/L 31.1 Anion Gap (3-11) mmol/L 7.9 BUN (7-18) mg/dL 7 Creatinine (0.55-1.02) mg/dL 0.8 Est GFR (CKD-EPI 2020) (mL/min/1.73m2) 79.22 Glucose (74-106) mg/dL 128 H Calcium (8.5-10.1) mg/dL 8.7 Total Bilirubin (0.2-1.0) mg/dL 0.4 AST (15-37) U/L 25 ALT (14-59) U/L 22 Alkaline Phosphatase (46-116) U/L 139 H Troponin I (<or=60) ng/L < 50 NT-Pro-B Natriuret Pep (<300) pg/mL 236 Total Protein (6.4-8.2) g/dL 7.0 Albumin (3.4-5.0) g/dL 2.9 L COVID-19 Source Nasopharynx SARS-CoV-2 (PCR) (Negative) Negative Influenza Type A (PCR) (Negative) Negative Influenza Type B (PCR) (Negative) Negative RSV (PCR) (Negative) Negative Range/Units 02/01/23 02/01/23 06:55 06:55 WBC (4.4-10.8) 10^3/uL 4.27 L RBC (3.93-5.22) 10^6/uL 2.93 L Hgb (11.2-15.7) g/dL 9.9 L Hct (36.0-46.0) % 29.7 L MCV (80-95) fL 101 H MCH (27.0-33.0) pg 33.8 H MCHC (32.0-36.0) % 33.3 RDW (11.7-14.6) % 16.2 H Plt Count (130-400) 10^3/uL 160 MPV (8.0-11.0) fL 8.7 Immature Gran % 0.9 Neutrophils % 70.8 Lymphocytes % 14.3 Monocytes % 11.5 Eosinophils % 2.3 Basophils % 0.2 Nucleated RBC % (0.0-0.3) % 0.0 Absolute Neutrophils (1.2-6.7) 10^3/uL 3.02 Absolute Lymphocytes (1.2-3.4) 10^3/uL 0.61 L Absolute Monocytes (0.1-0.8) 10^3/uL 0.49 Absolute Eosinophils (0.0-0.7) 10^3/uL 0.10 Absolute Basophils (0.0-0.2) 10^3/uL 0.01 PT (9.3-11.0) sec 10.3 INR (0.9-1.1) 1.0 APTT (21.5-31.9) sec 22.5 VBG pH (7.31-7.41) VBG pCO2 (41-51) mmHg VBG pO2 mmHg VBG HCO3 (23-28) mmol/L VBG Total CO2 (24-29) mmol/L VBG O2 Saturation % VBG Base Excess (-2-3) mmol/L Sodium (136-145) mmol/L Potassium (3.5-5.1) mmol/L Chloride (98-107) mmol/L Carbon Dioxide (21.0-32.0) mmol/L Anion Gap (3-11) mmol/L BUN (7-18) mg/dL Creatinine (0.55-1.02) mg/dL Est GFR (CKD-EPI 2020) (mL/min/1.73m2) Glucose (74-106) mg/dL Calcium (8.5-10.1) mg/dL Total Bilirubin (0.2-1.0) mg/dL AST (15-37) U/L ALT (14-59) U/L Alkaline Phosphatase (46-116) U/L Troponin I (<or=60) ng/L NT-Pro-B Natriuret Pep (<300) pg/mL Total Protein (6.4-8.2) g/dL Albumin (3.4-5.0) g/dL COVID-19 Source SARS-CoV-2 (PCR) (Negative) Influenza Type A (PCR) (Negative) Influenza Type B (PCR) (Negative) RSV (PCR) (Negative)
[2023-02-01] MEDS: Normal Saline - Diluent 50 ML VIAL IJ (08:56)
[2023-02-01] MEDS: Omnipaque 350 MG/ML 500 ML BTL-Imaging package IJ (08:56)
[2023-02-01 10:30] LABS: Troponin I < 50 ng/L (<or=60)
[2023-02-01] MEDS: hydrOXYzine HCL 25 MG TAB PO (10:40)
[2023-02-01] MEDS: hydrOXYzine HCL 25 MG TAB 50 MG PO (11:03)
== END 2023-02-01 11:03 | disposition home or self-care (01) ==
PROVIDERS: Student in an Organized Health Care Education/Training Program; Emergency Provider Emergency Medicine Emergency Medical Services; PCP Internal Medicine
DX: R06.02 Shortness of breath (principal); F41.9 Anxiety disorder, unspecified; C78.00 Secondary malignant neoplasm of unspecified lung
CPT/HCPCS: 36415; 71275; 80053; 82805; 87637; 93005; 99285; 83880; 84484; 85025; 85610; 85730; 93010; 99284; J7620

== ENCOUNTER 2023-02-05 02:45 | Outpatient (RCR) | payer MEDICARE, SELFPAY ==
[2023-01-15] MEDS: Normal Saline Flush 10 ML SYR IVP (09:02)
[2023-01-15 09:11] LABS: Abs Immature Grans 0.04 10^3/uL (0.0-0.06); Absolute Basophil Count 0.03 10^3/uL (0.0-0.2); Absolute Eosinophil Count 0.01 10^3/uL (0.0-0.7); Absolute Lymphocyte Count 1.44 10^3/uL (1.2-3.4); Absolute Monocyte Count 1.04 10^3/uL (0.1-0.8); Absolute Neutrophil Count 2.85 10^3/uL (1.2-6.7); Basophils % 0.6; Eosinophils % 0.2; HCT 32.2 % (36.0-46.0); HGB 10.6 g/dL (11.2-15.7); Immature Grans % 0.7; Lymphocytes % 26.6; MCH 31.9 pg (27.0-33.0); MCHC 32.9 % (32.0-36.0); MCV 97 fL (80-95); MPV 8.6 fL (8.0-11.0); Monocytes % 19.2; Neutrophils % 52.7; Platelet Count 172 10^3/uL (130-400); RBC 3.32 10^6/uL (3.93-5.22); RDW-SD 64.3 fL; WBC 5.41 10^3/uL (4.4-10.8)
[2023-01-15 09:30] LABS: ALT 25 U/L (14-59); AST 17 U/L (15-37); Albumin 3.4 g/dL (3.4-5.0); Alkaline Phosphatase 141 U/L (46-116); Anion Gap 6.9 mmol/L (3-11); BUN 7 mg/dL (7-18); Bilirubin, Total 0.3 mg/dL (0.2-1.0); CO2 28.1 mmol/L (21.0-32.0); CREATININE 0.8 mg/dL (0.55-1.02); Calcium 9.1 mg/dL (8.5-10.1); Chloride 104 mmol/L (98-107); Estimated GFR 79.22 (mL/min/1.73m2); Glucose 101 mg/dL (74-106); Potassium 3.3 mmol/L (3.5-5.1); Sodium 139 mmol/L (136-145); TSH 1.64 uIU/mL (0.36-3.74); Total Protein 7.2 g/dL (6.4-8.2)
[2023-02-05] MEDS: Normal Saline Flush 10 ML SYR IVP (10:25)
[2023-02-05 10:53] LABS: Abs Immature Grans 0.05 10^3/uL (0.0-0.06); Absolute Basophil Count 0.03 10^3/uL (0.0-0.2); Absolute Eosinophil Count 0.04 10^3/uL (0.0-0.7); Absolute Lymphocyte Count 0.93 10^3/uL (1.2-3.4); Absolute Monocyte Count 0.78 10^3/uL (0.1-0.8); Absolute Neutrophil Count 5.85 10^3/uL (1.2-6.7); Basophils % 0.4; Eosinophils % 0.5; HCT 31.4 % (36.0-46.0); HGB 10.3 g/dL (11.2-15.7); Immature Grans % 0.7; Lymphocytes % 12.1; MCH 33.9 pg (27.0-33.0); MCHC 32.8 % (32.0-36.0); MCV 103 fL (80-95); MPV 9.1 fL (8.0-11.0); Monocytes % 10.2; Neutrophils % 76.1; Platelet Count 219 10^3/uL (130-400); RBC 3.04 10^6/uL (3.93-5.22); RDW 16.7 % (11.7-14.6); RDW-SD 63.3 fL; WBC 7.68 10^3/uL (4.4-10.8)
[2023-02-05 11:23] LABS: ALT 19 U/L (14-59); AST 15 U/L (15-37); Alkaline Phosphatase 145 U/L (46-116); Anion Gap 10.3 mmol/L (3-11); BUN 8 mg/dL (7-18); Bilirubin, Total 0.3 mg/dL (0.2-1.0); CO2 29.7 mmol/L (21.0-32.0); CREATININE 0.8 mg/dL (0.55-1.02); Calcium 8.8 mg/dL (8.5-10.1); Chloride 102 mmol/L (98-107); Estimated GFR 79.22 (mL/min/1.73m2); FREE T4 1.14 ng/dL (0.76-1.46); Glucose 119 mg/dL (74-106); Magnesium 2.1 mg/dL (1.8-2.4); Potassium 3.3 mmol/L (3.5-5.1); Sodium 142 mmol/L (136-145); TSH 0.96 uIU/mL (0.36-3.74); Total Protein 7.1 g/dL (6.4-8.2)
== END 2023-02-09 23:59 | disposition home or self-care (01) ==
LOC: INF 02:45
PROVIDERS: PCP Internal Medicine; Visit Provider Internal Medicine Medical Oncology
DX: Z79.899 Other long term (current) drug therapy (principal); C34.31 Malignant neoplasm of lower lobe, right bronchus or lung; Z45.2 Encounter for adjustment and management of vascular access device
CPT/HCPCS: 36591; 80053; 83735; 84439; 84443; 85025

== ENCOUNTER 2023-03-05 03:55 | Outpatient (RCR) | payer MEDICARE, SELFPAY ==
[2023-03-05] MEDS: Normal Saline Flush 10 ML SYR IVP (12:11)
[2023-03-05 12:40] LABS: Abs Immature Grans 0.03 10^3/uL (0.0-0.06); Absolute Basophil Count 0.05 10^3/uL (0.0-0.2); Absolute Eosinophil Count 0.03 10^3/uL (0.0-0.7); Absolute Lymphocyte Count 1.51 10^3/uL (1.2-3.4); Absolute Monocyte Count 0.69 10^3/uL (0.1-0.8); Absolute Neutrophil Count 6.15 10^3/uL (1.2-6.7); Basophils % 0.6; Eosinophils % 0.4; HCT 32.3 % (36.0-46.0); HGB 10.7 g/dL (11.2-15.7); Immature Grans % 0.4; Lymphocytes % 17.8; MCH 34.2 pg (27.0-33.0); MCHC 33.1 % (32.0-36.0); MCV 103 fL (80-95); MPV 8.9 fL (8.0-11.0); Monocytes % 8.2; Neutrophils % 72.6; Platelet Count 158 10^3/uL (130-400); RBC 3.13 10^6/uL (3.93-5.22); RDW 14.4 % (11.7-14.6); RDW-SD 54.5 fL; WBC 8.46 10^3/uL (4.4-10.8)
[2023-03-05 13:07] LABS: ALT 14 U/L (14-59); AST 13 U/L (15-37); Alkaline Phosphatase 114 U/L (46-116); Anion Gap 8.4 mmol/L (3-11); BUN 9 mg/dL (7-18); Bilirubin, Total 0.3 mg/dL (0.2-1.0); CO2 31.6 mmol/L (21.0-32.0); Calcium 8.5 mg/dL (8.5-10.1); Chloride 109 mmol/L (98-107); Estimated GFR 60.61 (mL/min/1.73m2); FREE T4 1.04 ng/dL (0.76-1.46); Glucose 99 mg/dL (74-106); Sodium 149 mmol/L (136-145); TSH 1.53 uIU/mL (0.36-3.74); Total Protein 6.4 g/dL (6.4-8.2)
[2023-03-05 13:14] LABS: Potassium 2.9 mmol/L (3.5-5.1)
== END 2023-03-12 23:59 | disposition home or self-care (01) ==
LOC: INF 03:55
PROVIDERS: PCP Internal Medicine; Visit Provider Internal Medicine Medical Oncology
DX: Z79.899 Other long term (current) drug therapy (principal); C34.31 Malignant neoplasm of lower lobe, right bronchus or lung; Z45.2 Encounter for adjustment and management of vascular access device
CPT/HCPCS: 36591; 80053; 83735; 84439; 84443; 85025

== ENCOUNTER 2023-03-15 03:31 | Outpatient (CLI) | payer MEDICARE, SELFPAY ==
--- NOTE | 2023-03-15 | DI.MRI_ITS ---
Exam(s) MR BRAIN WO/W EXAM: MR BRAIN WO/W CLINICAL HISTORY: BRAIN CANCER C79.31 EVALUATION. TECHNIQUE: Multiplanar multisequence MRI of the brain was performed. CONTRAST MATERIAL: IV Contrast: 9 ML of Dotarem contrast administered. COMPARISON: MR MRI BRAIN WWO from 01/09/2023 FINDINGS: VENTRICLES AND EXTRA AXIAL SPACES: Normal in size and morphology for the patient's age. HEMORRHAGE: None. CEREBRAL PARENCHYMA: Stable appearance tiny high signal lesion in the high right frontal lobe at the middle frontal gyrus. Stable postcontrast enhancement in this lesion. Previous exam mentions a righ t occipital metastasis or nothing is visible in this area on the current scan. New areas suspicious f or metastases. No focus of restricted diffusion to suggest acute infarct. Scattered high signal with chronic microvascular changes. MIDLINE SHIFT: None. BRAINSTEM/CEREBELLUM: Normal. CALVARIUM: Stable appearance of small focus of postcontrast enhancement in the right frontal bone. VISUALIZED PARANASAL SINUSES/MASTOIDS: Clear. OTHER FINDINGS: None. IMPRESSION: Stable small focus metastasis in the right middle frontal gyrus. No known new abnormalities. DATA REPOSITORY:
[2023-03-15] MEDS: Gadoterate meglumine 20 ML VIAL IVP (11:51)
[2023-03-15] MEDS: Normal Saline Flush 10 ML SYR IJ (11:52)
== END 2023-03-15 03:51 ==
LOC: DI 03:31
PROVIDERS: PCP Internal Medicine; Visit Provider Nurse Practitioner Family
DX: C79.31 Secondary malignant neoplasm of brain (principal)
CPT/HCPCS: 70553

== ENCOUNTER 2023-03-26 03:37 | Outpatient (RCR) | payer MEDICARE, SELFPAY ==
[2023-03-15] MEDS: Normal Saline Flush 10 ML SYR IVP (10:04)
[2023-03-15] MEDS: Heparin 500 UNITS/5 ML SYRINGE IV (10:05)
[2023-03-26 09:52] LABS: Abs Immature Grans 0.02 10^3/uL (0.0-0.06); Absolute Basophil Count 0.04 10^3/uL (0.0-0.2); Absolute Lymphocyte Count 1.13 10^3/uL (1.2-3.4); Absolute Monocyte Count 0.58 10^3/uL (0.1-0.8); Absolute Neutrophil Count 3.35 10^3/uL (1.2-6.7); Basophils % 0.8; Eosinophils % 1.9; HCT 33.6 % (36.0-46.0); HGB 11.2 g/dL (11.2-15.7); Immature Grans % 0.4; Lymphocytes % 21.6; MCHC 33.3 % (32.0-36.0); MCV 102 fL (80-95); MPV 8.7 fL (8.0-11.0); Monocytes % 11.1; Neutrophils % 64.2; Platelet Count 152 10^3/uL (130-400); RBC 3.29 10^6/uL (3.93-5.22); RDW 13.3 % (11.7-14.6); RDW-SD 51.1 fL; WBC 5.22 10^3/uL (4.4-10.8)
[2023-03-26] MEDS: Normal Saline Flush 10 ML SYR IVP (09:57)
[2023-03-26 10:27] LABS: ALT 30 U/L (14-59); AST 29 U/L (15-37); Alkaline Phosphatase 169 U/L (46-116); Anion Gap 8.3 mmol/L (3-11); BUN 8 mg/dL (7-18); Bilirubin, Total 0.3 mg/dL (0.2-1.0); CO2 28.7 mmol/L (21.0-32.0); CREATININE 0.8 mg/dL (0.55-1.02); Chloride 107 mmol/L (98-107); Estimated GFR 79.22 (mL/min/1.73m2); FREE T4 1.13 ng/dL (0.76-1.46); Glucose 99 mg/dL (74-106); Magnesium 1.9 mg/dL (1.8-2.4); Sodium 144 mmol/L (136-145); TSH 1.32 uIU/mL (0.36-3.74); Total Protein 6.7 g/dL (6.4-8.2)
== END 2023-04-12 23:59 | disposition home or self-care (01) ==
LOC: INF 03:37
PROVIDERS: PCP Internal Medicine; Visit Provider Internal Medicine Medical Oncology
DX: C34.31 Malignant neoplasm of lower lobe, right bronchus or lung (principal); Z79.899 Other long term (current) drug therapy; Z45.2 Encounter for adjustment and management of vascular access device
CPT/HCPCS: 36591; 80053; 96523; 83735; 84439; 84443; 85025

== ENCOUNTER → 2023-05-01 03:00 | Outpatient (CLI) | payer MEDICARE, SELFPAY ==
[2023-05-01] MEDS: Omnipaque 350 MG/ML 500 ML BTL-Imaging package IJ (12:38)
[2023-05-01] MEDS: Normal Saline - Diluent 50 ML VIAL IJ (12:43)
[2023-05-01] MEDS: Normal Saline Flush 10 ML SYR IVP (12:44)
--- NOTE | 2023-05-01 12:45 | DI.CT_ITS ---
Exam(s) CT CHEST W EXAM: CT CHEST W CLINICAL HISTORY: NSCLC, RLL, C34.31, mets, assess tx TECHNIQUE: Imaging Protocol: Axial computed tomography images with coronal and sagittal reformatted images were created and reviewed CONTRAST MATERIAL: Intravenous: Omnipaque 350Contrast volume:70 mL. COMPARISON: CT CT CHEST W from 11/28/[address] CHEST PE CTA from 02/01/2023 FINDINGS: Tracheobronchial tree: Patent where visualized. Pulmonary parenchyma: Centrilobular emphysematous changes are seen in the lungs. There is persistent stable scarring in the right lung apex. The small right pleural effusion and subjacent infiltrate i s unchanged. There are no new infiltrates in the lungs. No new pulmonary nodules are present. Irma pheral interstitial disease is again seen in the lung bases. Mediastinum and Joya: No dominant adenopathy or fluid collection. The esophagus is unremarkable. Thyroid gland: Unremarkable. Pleura: No pneumothorax or left pleural effusion. Heart: The heart is not dilated. Coronary artery stents and/or calcifications are seen. No pericardi al effusion. Aorta: Thoracic aorta non-dilated. Atherosclerosis is present. Marked atherosclerotic disease is see n in the proximal abdominal aorta. Pulmonary arteries: The segmental and subsegmental pulmonary arteries are not adequately opacified. No large central pulmonary embolus is seen. Upper abdomen: Numerous hepatic cysts are again seen. Lymph nodes: Within normal limits. Bones: Within normal limits for the patient's age. Stable appearance of the bones since 02/01/2023. Tubes, Catheters, and Lines: There is a port in the right upper chest wall. Soft tissues: Unremarkable. IMPRESSION: Overall stable appearance of the chest compared to 12/02/2022. RADIATION DOSE DELIVERED: 304.9mGy.cm Total DLP DATA REPOSITORY: All CT scans at this facility are submitted to the National Radiology Data Registry (NRDR) Dose Index Registry (DIR) with the [employer] ([employer]). RADIATION OPTIMIZATION: All CT scans at this facility use at least one of these dose optimization te chniques: automated exposure control; mA and/or kV adjustment per patient size (includes targeted exa ms where dose is matched to clinical indication); or iterative reconstruction.
== END ==
PROVIDERS: PCP Internal Medicine; Visit Provider Nurse Practitioner Family
DX: C34.31 Malignant neoplasm of lower lobe, right bronchus or lung (principal)
CPT/HCPCS: 71260

== ENCOUNTER 2023-05-10 04:51 | Outpatient (RCR) | payer MEDICARE, SELFPAY ==
[2023-04-18] MEDS: Normal Saline Flush 10 ML SYR IVP (10:55)
[2023-04-18 11:21] LABS: Abs Immature Grans 0.04 10^3/uL (0.0-0.06); Absolute Basophil Count 0.05 10^3/uL (0.0-0.2); Absolute Eosinophil Count 0.02 10^3/uL (0.0-0.7); Absolute Lymphocyte Count 1.62 10^3/uL (1.2-3.4); Absolute Monocyte Count 0.77 10^3/uL (0.1-0.8); Absolute Neutrophil Count 6.04 10^3/uL (1.2-6.7); Basophils % 0.6; Eosinophils % 0.2; HGB 10.6 g/dL (11.2-15.7); Immature Grans % 0.5; MCH 34.5 pg (27.0-33.0); MCHC 33.1 % (32.0-36.0); MCV 104 fL (80-95); MPV 9.4 fL (8.0-11.0); Neutrophils % 70.7; Platelet Count 183 10^3/uL (130-400); RBC 3.07 10^6/uL (3.93-5.22); RDW-SD 52.2 fL; WBC 8.54 10^3/uL (4.4-10.8)
[2023-04-18 11:49] LABS: ALT 11.6 U/L (14-59); AST 17 U/L (15-37); Albumin 2.8 g/dL (3.4-5.0); Alkaline Phosphatase 115 U/L (46-116); Anion Gap 8.2 mmol/L (3-11); BUN 10 mg/dL (7-18); Bilirubin, Total 0.4 mg/dL (0.2-1.0); CO2 29.8 mmol/L (21.0-32.0); CREATININE 0.9 mg/dL (0.55-1.02); Calcium 8.4 mg/dL (8.5-10.1); Chloride 103 mmol/L (98-107); Estimated GFR 68.77 (mL/min/1.73m2); FREE T4 1.37 ng/dL (0.76-1.46); Glucose 111 mg/dL (74-106); Magnesium 1.9 mg/dL (1.8-2.4); Sodium 141 mmol/L (136-145); TSH 2.42 uIU/mL (0.36-3.74); Total Protein 6.7 g/dL (6.4-8.2)
[2023-04-18 11:53] LABS: Potassium 2.9 mmol/L (3.5-5.1)
[2023-05-01] MEDS: Normal Saline Flush 10 ML SYR IVP (12:14)
[2023-05-01] MEDS: Heparin 500 UNITS/5 ML SYRINGE IV (12:15)
[2023-05-07] MEDS: Normal Saline Flush 10 ML SYR IVP (10:50)
[2023-05-07 11:01] LABS: Abs Immature Grans 0.04 10^3/uL (0.0-0.06); Absolute Basophil Count 0.03 10^3/uL (0.0-0.2); Absolute Eosinophil Count 0.08 10^3/uL (0.0-0.7); Absolute Lymphocyte Count 1.42 10^3/uL (1.2-3.4); Absolute Monocyte Count 0.73 10^3/uL (0.1-0.8); Absolute Neutrophil Count 3.74 10^3/uL (1.2-6.7); Basophils % 0.5; Eosinophils % 1.3; HCT 27.7 % (36.0-46.0); HGB 9.4 g/dL (11.2-15.7); Immature Grans % 0.7; Lymphocytes % 23.5; MCH 34.7 pg (27.0-33.0); MCHC 33.9 % (32.0-36.0); MCV 102 fL (80-95); MPV 9.2 fL (8.0-11.0); Monocytes % 12.1; Neutrophils % 61.9; Platelet Count 161 10^3/uL (130-400); RBC 2.71 10^6/uL (3.93-5.22); RDW 13.9 % (11.7-14.6); RDW-SD 50.4 fL; WBC 6.04 10^3/uL (4.4-10.8)
[2023-05-07 11:30] LABS: ALT 12 U/L (14-59); AST 15 U/L (15-37); Albumin 2.5 g/dL (3.4-5.0); Alkaline Phosphatase 115 U/L (46-116); Anion Gap 8.4 mmol/L (3-11); BUN 9 mg/dL (7-18); Bilirubin, Total 0.4 mg/dL (0.2-1.0); CO2 30.6 mmol/L (21.0-32.0); CREATININE 0.9 mg/dL (0.55-1.02); Calcium 8.4 mg/dL (8.5-10.1); Chloride 101 mmol/L (98-107); Estimated GFR 68.77 (mL/min/1.73m2); Glucose 107 mg/dL (74-106); Magnesium 1.7 mg/dL (1.8-2.4); Sodium 140 mmol/L (136-145); TSH 1.36 uIU/mL (0.36-3.74); Total Protein 6.2 g/dL (6.4-8.2)
[2023-05-07 11:37] LABS: Potassium 2.5 mmol/L (3.5-5.1)
[2023-05-08 10:29] LABS: FREE T4 1.28 ng/dL (0.76-1.46)
[2023-05-10] MEDS: Normal Saline Flush 10 ML SYR IVP (08:47)
[2023-05-10 09:25] LABS: Abs Immature Grans 0.03 10^3/uL (0.0-0.06); Absolute Basophil Count 0.05 10^3/uL (0.0-0.2); Absolute Eosinophil Count 0.08 10^3/uL (0.0-0.7); Absolute Lymphocyte Count 1.07 10^3/uL (1.2-3.4); Absolute Monocyte Count 0.57 10^3/uL (0.1-0.8); Absolute Neutrophil Count 5.37 10^3/uL (1.2-6.7); Basophils % 0.7; Eosinophils % 1.1; HCT 30.2 % (36.0-46.0); HGB 9.9 g/dL (11.2-15.7); Immature Grans % 0.4; Lymphocytes % 14.9; MCH 34.5 pg (27.0-33.0); MCHC 32.8 % (32.0-36.0); MCV 105 fL (80-95); MPV 9.2 fL (8.0-11.0); Monocytes % 7.9; Platelet Count 159 10^3/uL (130-400); RBC 2.87 10^6/uL (3.93-5.22); RDW 14.8 % (11.7-14.6); RDW-SD 57.3 fL; WBC 7.17 10^3/uL (4.4-10.8)
[2023-05-10 09:43] LABS: Diff Comment Diff Reviewed; Macrocytosis 2+
[2023-05-10 09:49] LABS: ALT 14 U/L (14-59); AST 19 U/L (15-37); Albumin 2.5 g/dL (3.4-5.0); Alkaline Phosphatase 121 U/L (46-116); Anion Gap 6.3 mmol/L (3-11); BUN 7 mg/dL (7-18); Bilirubin, Total 0.3 mg/dL (0.2-1.0); CO2 30.7 mmol/L (21.0-32.0); CREATININE 0.9 mg/dL (0.55-1.02); Calcium 8.6 mg/dL (8.5-10.1); Chloride 105 mmol/L (98-107); Estimated GFR 68.77 (mL/min/1.73m2); FREE T4 1.26 ng/dL (0.76-1.46); Glucose 101 mg/dL (74-106); Magnesium 1.8 mg/dL (1.8-2.4); Sodium 142 mmol/L (136-145); TSH 1.32 uIU/mL (0.36-3.74); Total Protein 6.6 g/dL (6.4-8.2)
== END 2023-05-12 23:59 | disposition home or self-care (01) ==
LOC: INF 04:51
PROVIDERS: PCP Internal Medicine; Visit Provider Internal Medicine Medical Oncology
DX: C34.31 Malignant neoplasm of lower lobe, right bronchus or lung (principal); Z79.899 Other long term (current) drug therapy; C34.2 Malignant neoplasm of middle lobe, bronchus or lung
CPT/HCPCS: 36591; 80053; 96523; 83735; 84436; 84439; 84443; 85025

== ENCOUNTER 2023-06-08 01:17 | Outpatient (RCR) | payer MEDICARE, SELFPAY ==
[2023-05-14] MEDS: Normal Saline Flush 10 ML SYR IVP (09:56)
[2023-05-14 10:03] LABS: Abs Immature Grans 0.01 10^3/uL (0.0-0.06); Absolute Basophil Count 0.03 10^3/uL (0.0-0.2); Absolute Eosinophil Count 0.06 10^3/uL (0.0-0.7); Absolute Lymphocyte Count 0.91 10^3/uL (1.2-3.4); Absolute Monocyte Count 0.49 10^3/uL (0.1-0.8); Absolute Neutrophil Count 5.26 10^3/uL (1.2-6.7); Basophils % 0.4; Eosinophils % 0.9; HCT 30.9 % (36.0-46.0); Immature Grans % 0.1; Lymphocytes % 13.5; MCH 34.2 pg (27.0-33.0); MCHC 32.4 % (32.0-36.0); MCV 106 fL (80-95); MPV 9.1 fL (8.0-11.0); Monocytes % 7.2; Neutrophils % 77.9; Platelet Count 131 10^3/uL (130-400); RBC 2.92 10^6/uL (3.93-5.22); RDW 14.4 % (11.7-14.6); RDW-SD 56.1 fL; WBC 6.76 10^3/uL (4.4-10.8)
[2023-05-14 10:38] LABS: ALT 8 U/L (14-59); AST 16 U/L (15-37); Albumin 2.2 g/dL (3.4-5.0); Alkaline Phosphatase 123 U/L (46-116); Anion Gap 8.1 mmol/L (3-11); BUN 7 mg/dL (7-18); Bilirubin, Total 0.4 mg/dL (0.2-1.0); CO2 27.9 mmol/L (21.0-32.0); CREATININE 0.8 mg/dL (0.55-1.02); Calcium 8.1 mg/dL (8.5-10.1); Chloride 106 mmol/L (98-107); Estimated GFR 79.22 (mL/min/1.73m2); Glucose 100 mg/dL (74-106); Magnesium 1.8 mg/dL (1.8-2.4); Potassium 3.2 mmol/L (3.5-5.1); Sodium 142 mmol/L (136-145); TSH 1.12 uIU/mL (0.36-3.74); Total Protein 5.9 g/dL (6.4-8.2)
[2023-06-06] MEDS: Normal Saline Flush 10 ML SYR IVP (08:57)
[2023-06-06 09:15] LABS: Abs Immature Grans 0.02 10^3/uL (0.0-0.06); Absolute Basophil Count 0.02 10^3/uL (0.0-0.2); Absolute Eosinophil Count 0.01 10^3/uL (0.0-0.7); Absolute Lymphocyte Count 0.99 10^3/uL (1.2-3.4); Absolute Monocyte Count 0.55 10^3/uL (0.1-0.8); Absolute Neutrophil Count 5.54 10^3/uL (1.2-6.7); Basophils % 0.3; Eosinophils % 0.1; HCT 25.3 % (36.0-46.0); HGB 8.5 g/dL (11.2-15.7); Immature Grans % 0.3; Lymphocytes % 13.9; MCH 34.3 pg (27.0-33.0); MCHC 33.6 % (32.0-36.0); MCV 102 fL (80-95); MPV 9.2 fL (8.0-11.0); Monocytes % 7.7; Neutrophils % 77.7; Platelet Count 185 10^3/uL (130-400); RBC 2.48 10^6/uL (3.93-5.22); RDW 14.5 % (11.7-14.6); RDW-SD 54.3 fL; WBC 7.13 10^3/uL (4.4-10.8)
[2023-06-06 09:40] LABS: ALT 12 U/L (14-59); AST 17 U/L (15-37); Albumin 2.1 g/dL (3.4-5.0); Alkaline Phosphatase 168 U/L (46-116); Anion Gap 7.1 mmol/L (3-11); BUN 10 mg/dL (7-18); Bilirubin, Total 0.3 mg/dL (0.2-1.0); CO2 27.9 mmol/L (21.0-32.0); Calcium 8.7 mg/dL (8.5-10.1); Chloride 104 mmol/L (98-107); Estimated GFR 60.61 (mL/min/1.73m2); FREE T4 1.06 ng/dL (0.76-1.46); Glucose 99 mg/dL (74-106); Magnesium 1.8 mg/dL (1.8-2.4); Sodium 139 mmol/L (136-145); TSH 0.98 uIU/mL (0.36-3.74); Total Protein 6.2 g/dL (6.4-8.2)
[2023-06-06 09:46] LABS: Potassium 2.6 mmol/L (3.5-5.1)
[2023-06-08] MEDS: Normal Saline Flush 10 ML SYR IVP (08:29)
[2023-06-08 09:08] LABS: ALT 24 U/L (14-59); AST 51 U/L (15-37); Albumin 2.2 g/dL (3.4-5.0); Alkaline Phosphatase 159 U/L (46-116); Anion Gap 10.7 mmol/L (3-11); BUN 7 mg/dL (7-18); Bilirubin, Total 0.2 mg/dL (0.2-1.0); CO2 23.3 mmol/L (21.0-32.0); CREATININE 0.9 mg/dL (0.55-1.02); Calcium 8.1 mg/dL (8.5-10.1); Chloride 102 mmol/L (98-107); Estimated GFR 68.77 (mL/min/1.73m2); Glucose 120 mg/dL (74-106); Sodium 136 mmol/L (136-145); Total Protein 6.2 g/dL (6.4-8.2)
== END 2023-06-12 23:59 | disposition home or self-care (01) ==
LOC: INF 01:17
PROVIDERS: PCP Internal Medicine; Visit Provider Internal Medicine Medical Oncology
DX: C34.31 Malignant neoplasm of lower lobe, right bronchus or lung (principal); Z79.899 Other long term (current) drug therapy; Z45.2 Encounter for adjustment and management of vascular access device
CPT/HCPCS: 36591; 80053; 83735; 84439; 84443; 85025

== ENCOUNTER 2023-06-12 11:52 | Emergency (ER) | payer MEDICARE, SELFPAY ==
[2023-06-12 12:01] VITALS: BP 167/99; PULSE 100; RESP 20; TEMP 37.2; O2SAT 99
--- NOTE | 2023-06-12 12:47 | ED.GENADUL_ITS ---
Discharge Plan Disposition Patient Disposition: Home Condition: Stable Discharge Details Clinical Impression: Hypokalemia Primary Care Provider: Nitish Mccoy ED Provider: Jamarcus Alfredo Home Meds and New Rx's Prescriptions: Continued atorvastatin 20 mg Tablet 40 mg PO QPM aspirin 81 mg Tablet,Delayed Release (Dr/Ec) 81 mg PO DAILY Patient Comments: Not taking acetaminophen [Tylenol Extra Strength] 500 mg Tablet 1,000 mg PO .Q6HRS PRN prochlorperazine maleate 10 mg tablet 6 mg PO Q6H PRN Patient Comments: TAKE ONE TABLET BY MOUTH EVERY 6 HOURS NEEDED FOR NAUSEA dexamethasone 4 mg tablet See Rx Instructions .ROUTE .COMPLEX Patient Comments: TAKE ONE TABLET BY MOUTH THE DAY BEFORE CHEMOTHERAPY AND THE DAY AFTER CHEMOTHERAPY Rx Instructions: Take 1 tab PO the day before and the day chemotherapy hydromorphone 4 mg tablet 4 mg PO Q4H hydroxyzine HCl 25 mg tablet 25 mg PO QID PRNQty: 14 0RF Discharge Instructions Instructions: Hypokalemia (ED) Additional Instructions: You were seen in the emergency department for your generalized weakness and intermittent nausea in the setting of chronic treatment for lung cancer. Your lab values today are good with your potassium being 3.4 and other electrolytes within normal limits, there is no sign of infection on your labs and your abdominal organs show no pathology on lab work-up, with a nontender abdomen I do not think any scans are necessary. Please continue your at home potassium supplements and transition to high potassium diet and follow-up with your primary care provider. Please return to the emergency department for any fever, nausea, vomiting evident tractable nature, any chest pain or shortness of breath or other emergent concerns. Medical Decision Making This dictation utilizes [id number] dictation software and may contain unedited grammatical errors. 72 y/o F presents to ED today with a chief complaint of generalized weakness and nausea/vomiting, being treated for low potassium, referred for value at labs days ago of 3.0. Onset and characteristics include weeks onset, generalized symptoms, denies focal illness. Patient has relevant history of lung CA. Family and social history: noncontributory. Pertinent exam findings / vital signs include benign cardiopulmonary status, nontoxic, afebrile, benign abdomen. Differential / pathologies of concern include hypokalemia, electrolyte abnormality, viral syndrome, nausea/vomiting, medication reaction. Diagnostic studies of: -CBC, CMP, lipase, lactate, magnesium. -potassium 3.4 -mag WNL -no leukocytosis -lipase WNL -LFTs not pathologic -lactate WNL Interventions of: -IV potassium & magnesium, IV fluids. ED Course: No acute events in emergency department, the patient did have some frustration over her port access, she refused to remove her clothing from home for port access we informed her that we cannot access her port with unsterile clothing. Findings not consistent with severe electrolyte abnormality, sepsis, infection, neuro deficit, acute abdomen, respiratory distress. Reasonable to follow-up outpatient with routine management and continue her BID PO KCl. Disposition of Hypokalemia. Assessment/Plan: Counseled the patient on her at home potassium treatment liking improving her condition as her potassium was 3.4 today. We discussed possible causes of her intermittent nausea as possible medication reactions, she has antiemetics at home and was comfortable with discharge, I did discuss possible effervescent potassium but with her positive reaction to her at-home treatment and improving lab values it is best not to alter her prescription plan. I counseled her to keep transitioning to potassium rich diet and to follow-up with her primary care provider, her next appointment is June 25. Patient verbalized understanding of the plan and return to ED criteria and engaged in shared decision making. Medical Records Medical records reviewed: Yes I reviewed the patient's medical records. Lab Data Lab results reviewed: Yes I reviewed the patient's lab results. Labs: Laboratory Tests Range/Units 06/12/23 13:06 WBC (4.4-10.8) 10^3/uL 2.55 L RBC (3.93-5.22) 10^6/uL 2.16 L Hgb (11.2-15.7) g/dL 7.4 L Hct (36.0-46.0) % 22.5 L MCV (80-95) fL 104 H MCH (27.0-33.0) pg 34.3 H MCHC (32.0-36.0) % 32.9 RDW (11.7-14.6) % 13.5 Plt Count (130-400) 10^3/uL 77 L MPV (8.0-11.0) fL 9.1 Immature Gran % 7.8 Neutrophils % 69.8 Lymphocytes % 20.0 Monocytes % 1.2 Eosinophils % 0.8 Basophils % 0.4 Nucleated RBC % (0.0-0.3) % 0.0 Absolute Neutrophils (1.2-6.7) 10^3/uL 1.78 Absolute Lymphocytes (1.2-3.4) 10^3/uL 0.51 L Absolute Monocytes (0.1-0.8) 10^3/uL 0.03 L Absolute Eosinophils (0.0-0.7) 10^3/uL 0.02 Absolute Basophils (0.0-0.2) 10^3/uL 0.01 RBC Morphology See Below Hypochromasia 2+ VBG Lactate (0.6-1.4) mmol/L 1.0 Sodium (136-145) mmol/L 135 L Potassium (3.5-5.1) mmol/L 3.4 L Chloride (98-107) mmol/L 100 Carbon Dioxide (21.0-32.0) mmol/L 28.7 Anion Gap (3-11) mmol/L 6.3 BUN (7-18) mg/dL 8 Creatinine (0.55-1.02) mg/dL 0.8 Est GFR (CKD-EPI 2020) (mL/min/1.73m2) 79.22 Glucose (74-106) mg/dL 112 H Calcium (8.5-10.1) mg/dL 8.3 L Magnesium (1.8-2.4) mg/dL 1.9 Total Bilirubin (0.2-1.0) mg/dL 0.9 AST (15-37) U/L 18 ALT (14-59) U/L 16 Alkaline Phosphatase (46-116) U/L 185 H Total Protein (6.4-8.2) g/dL 6.2 L Albumin (3.4-5.0) g/dL 1.9 L Lipase (16-77) U/L < 10 L HPI General Date/Time Provider Initiated Documentation: 06/12/23 11:55 . HPI Narrative: 72 year-old female presents to ED today by POV/ambulating with a chief complaint of generalized weakness, known CA patient with ongoing chronic hypokalemia- feels that her potassium is low, she states she is just tired, and has had intermittent with onset for weeks. Quality described as generalized weakness, intermittent nausea, no radiation to fever, cough, intractable vomiting, abdominal pain, shortness of breath, bowel/urinary changes. Severity is described as moderate. Palliating factors include nothing specific- patient has been on 40mEq K+Cl BID, and is transitioning to high potassium diet. Provoking factors include nothing specific, denies GI losses. Events leading up to the incident/Associated Symptoms: Patient is a known Oncology patient with Lung CA. Patient not anticoagulated. Related Data Home Medications Medication Instructions Recorded Confirmed aspirin 81 mg tablet,delayed 81 mg PO DAILY 07/28/21 11/22/22 release atorvastatin 20 mg tablet 40 mg PO QPM 07/28/21 02/01/23 acetaminophen 500 mg tablet 1,000 mg PO .Q6HRS PRN 08/10/21 02/01/23 (Tylenol Extra Strength) dexamethasone 4 mg tablet See Rx Instructions .Route .COMPLEX 10/19/22 02/01/23 hydromorphone 4 mg tablet 4 mg PO Q4H 10/19/22 02/01/23 prochlorperazine maleate 10 mg 6 mg PO Q6H PRN 10/19/22 02/01/23 tablet hydroxyzine HCl 25 mg tablet 25 mg PO QID PRN #14 tabs 02/01/23 Previous Rx's Medication Instructions Recorded hydroxyzine HCl 25 mg tablet 25 mg PO QID PRN #14 tabs 02/01/23 Allergies Allergy/AdvReac Type Severity Reaction Status Date / Time No Known Allergies Allergy Unverified 06/12/23 12:01 General Stated Complaint: GenMedical JOLLY: 3 Review of Systems All systems reviewed & are unremarkable except as noted in HPI and below PFSH All Active Problems (Updated 06/12/23 @ 14:05 by CRYSTAL Villalobos) Hypokalemia (Acute) Closed fracture of left pelvis (Acute) Lumbago (Acute) Social History Smoking/Tobacco Use Status: Former Tobacco Use Quit Date: 10/11/22 Smoking risk assessment performed?: Yes Alcohol Intake: never Drug use: Never Substance use type: does not use Housing: house Do you feel safe at home: Yes Do you feel safe in your relationship?: Yes Additional Social history: Lives with Exam Narrative Exam Narrative: GENERAL APPEARANCE: Well-nourished, non-toxic, awake and alert, atraumatic, no acute distress. SKIN: Warm, pink, dry, intact, without rashes/lesions/ulcerations. HEAD: Normocephalic, atraumatic, normal hair distribution for gender/age. EYES: Pupils PERRLA, EOMs intact without nystagmus, normal conjunctiva, no exudates on lids/lashes. ENT: Nares patent, no circumoral cyanosis, no facial swelling NECK: Supple, trachea midline, painless cervical ROM. LUNGS/CHEST: Lungs CTA bilaterally - no rhonchi/rales/wheezes diffusely, non- labored respirations, normal A/P diameter, symmetrical expansion, no chest wall deformity HEART (CV/PV): Regular rate and rhythm without murmur, no peripheral edema, no JVD. ABDOMEN: Soft, non-distended, no guarding, no tenderness. MSK: Normal ROM, no swelling/deformity to bilateral UEs or LEs, moving all extremities without weakness, no cyanosis, spine midline without tenderness, normal curvature. NEURO: Mental Status AAOx4 - alert to person, place, time, events No facial droop, no forehead involvement. Motor: No focal weakness - strength 5/5 in bilateral UEs and LEs, proximal and distal, symmetric. Sensory: sensation intact to light touch globally. Gait normal: patient ambulated without ataxia into ED room. PSYCH: euthymic, cooperative, pleasant, appropriate speech Course Vital Signs Vital signs: Vital Signs Temperature 37.2 C 06/12/23 12:01 Pulse 100 H 06/12/23 12:01 Respiratory Rate 20 06/12/23 12:01 Blood Pressure 167/99 H 06/12/23 12:01 Pulse Oximetry 99 06/12/23 12:01 Temperature 37.2 C 06/12/23 12:01 Pulse 100 H 06/12/23 12:01 Respiratory Rate 20 06/12/23 12:01 Blood Pressure 167/99 H 06/12/23 12:01 Blood Pressure Position Sitting 06/12/23 12:01 Pulse Oximetry 99 06/12/23 12:01 Oxygen Delivery Method Room Air 06/12/23 12:01 Oxygen Flow Rate 0 06/12/23 12:01
[2023-06-12] MEDS: MAGNESIUM SULFATE 2 GM/50 ML BAG IVPB (13:20)
[2023-06-12 13:23] VITALS: BP 152/81; PULSE 90; RESP 18; RESP 20; TEMP 37; O2SAT 98
[2023-06-12 13:25] LABS: Absolute Basophil Count 0.01 10^3/uL (0.0-0.2); Absolute Eosinophil Count 0.02 10^3/uL (0.0-0.7); Absolute Lymphocyte Count 0.51 10^3/uL (1.2-3.4); Absolute Monocyte Count 0.03 10^3/uL (0.1-0.8); Absolute Neutrophil Count 1.78 10^3/uL (1.2-6.7); Basophils % 0.4; Eosinophils % 0.8; HCT 22.5 % (36.0-46.0); HGB 7.4 g/dL (11.2-15.7); Immature Grans % 7.8; MCH 34.3 pg (27.0-33.0); MCHC 32.9 % (32.0-36.0); MCV 104 fL (80-95); MPV 9.1 fL (8.0-11.0); Monocytes % 1.2; Neutrophils % 69.8; RBC 2.16 10^6/uL (3.93-5.22); RDW 13.5 % (11.7-14.6); RDW-SD 52.1 fL; WBC 2.55 10^3/uL (4.4-10.8)
[2023-06-12 13:32] LABS: ALT 16 U/L (14-59); AST 18 U/L (15-37); Albumin 1.9 g/dL (3.4-5.0); Alkaline Phosphatase 185 U/L (46-116); Anion Gap 6.3 mmol/L (3-11); BUN 8 mg/dL (7-18); Bilirubin, Total 0.9 mg/dL (0.2-1.0); CO2 28.7 mmol/L (21.0-32.0); CREATININE 0.8 mg/dL (0.55-1.02); Calcium 8.3 mg/dL (8.5-10.1); Chloride 100 mmol/L (98-107); Estimated GFR 79.22 (mL/min/1.73m2); Glucose 112 mg/dL (74-106); Lipase < 10 U/L (16-77); Magnesium 1.9 mg/dL (1.8-2.4); Potassium 3.4 mmol/L (3.5-5.1); Sodium 135 mmol/L (136-145); Total Protein 6.2 g/dL (6.4-8.2)
[2023-06-12 14:00] LABS: Platelet Count 77 10^3/uL (130-400)
[2023-06-12 14:01] LABS: Diff Comment Agrees w/ Instrument; Hypochromasia 2+
== END 2023-06-12 14:40 | disposition home or self-care (01) ==
PROVIDERS: Emergency Provider Physician Assistant; PCP Internal Medicine
DX: R42 Dizziness and giddiness (principal); E87.6 Hypokalemia; C34.90 Malignant neoplasm of unspecified part of unspecified bronchus or lung; R11.2 Nausea with vomiting, unspecified; R53.1 Weakness
CPT/HCPCS: 80053; 83690; 96365; 96366; 96375; 99284; 83605; 83735; 85025

== ENCOUNTER 2023-06-24 13:18 | Inpatient (IN) | payer MEDICARE, SELFPAY ==
[2023-06-24] VITALS (82 sets, daily range): BP systolic 79–136; BP diastolic 43–84; PULSE 65–93; RESP 10–25; TEMP 36.2–37.1; O2SAT 97–100
--- NOTE | 2023-06-24 13:23 | W.ED.GENAD ---
Discharge Plan Discharge Details Chief Complaint: GenMedical Primary Care Provider: Nitish Mccoy ED Provider: Jamarcus Alfredo Home Meds and New Rx's Prescriptions: No Action atorvastatin 20 mg Tablet 40 mg PO QPM aspirin 81 mg Tablet,Delayed Release (Dr/Ec) 81 mg PO DAILY Patient Comments: Not taking acetaminophen [Tylenol Extra Strength] 500 mg Tablet 1,000 mg PO .Q6HRS PRN prochlorperazine maleate 10 mg tablet 6 mg PO Q6H PRN Patient Comments: TAKE ONE TABLET BY MOUTH EVERY 6 HOURS NEEDED FOR NAUSEA dexamethasone 4 mg tablet See Rx Instructions .ROUTE .COMPLEX Patient Comments: TAKE ONE TABLET BY MOUTH THE DAY BEFORE CHEMOTHERAPY AND THE DAY AFTER CHEMOTHERAPY Rx Instructions: Take 1 tab PO the day before and the day chemotherapy hydromorphone 4 mg tablet 4 mg PO Q4H hydroxyzine HCl 25 mg tablet 25 mg PO QID PRNQty: 14 0RF Medical Decision Making This dictation utilizes [id number] dictation software and may contain unedited grammatical errors. 72 y/o F presents to ED today with a chief complaint of profound weakness, she has a stage IV lung cancer patient who has been at home while her was admitted here for respiratory failure with pneumonia and COPD CHF exacerbation. She states that she has had poor ability to care for herself without him at home, poor p.o. intake, denies any overt pain or falls, has mild epigastric pain, denies chest pain or fever, denies intractable nausea and vomiting she states she feels profoundly weak. Patient has relevant history of stage 4 lung CA. Family and social history: smoking in history, otherwise negative. Pertinent exam findings / vital signs include lungs clear to auscultation, no hypoxia, mildly hypotensive of 110/50 on arrival, afebrile, SPO2 99%, mild epigastric tenderness without peritoneal signs. Differential / pathologies of concern include electrolyte abnormalities, GI bleeding, anemia, weakness, debility, pneumonia, end-stage cancer. Diagnostic studies of: -CBC, CMP, Lipase, UA, Type & Screen, CT Chest w Contrast, CT ABD/Pelvis w Contrast, Mg++, CK, lipase, BNP, EKG. -CBC shows profound anemia of 6.0, last value was 7.4 -CMP shows significant hypokalemia of 2.0 -Mg++ WNL -Lipase negative -CK negative, no rhabdo -BNP elev to 10,000 -EKG without STEMI, no U-waves -ED stool Occult Hari woo has phoned results to me showing extensive iliac and femoral DVTs bilaterally as well as some mildly dilated fluid loops of small bowel in the jejunum of early obstruction versus ileus, the patient has been having bowel movements including bowel movement in her close on arrival and brown stool present in the rectum. There is also a large amount of atherosclerosis in the distal aorta and common iliac arteries with possible occlusion in the distal aorta. I discussed this with her hospitalist team and with the patient's profound anemia and need for anticoagulation and blood pressures hovering with a map around 60 its likely that we need to transfer the [place] [facility] [place] and vascular surgery consults, her oncologist at [facility] [place]. Fair[place] (sp?). I have paged vascular surgery at [facility] as well as Oncology. Interventions of: -Repleted potassium, performing type and screen to transfuse the patient. Giving 1 unit. ED Course: Stage IV cancer patient presents with profound weakness after her was admitted for a few days that she did not have her primary hospice patient care secretary in the home. She does have profound anemia of 6.0 down from 7.4 at last value, she has profound hypokalemia of 2.0-warrants admission, performing CT scan of the chest abdomen pelvis, concern GI bleeding versus anemia and end-stage cancer. Platelets are 71 elevated BNP, likely needs telemetry admission and possible consults with palliative care if condition does not improve. Findings not consistent with hypoxemic respiratory failure or sepsis, the patient has profound hypokalemia and profound anemia requiring inpatient intervention, acute on chronic complicated illness with comorbidities. Disposition of Anemia, Hypokalemia, Debility, DVT. Patient verbalized understanding of the plan and return to ED criteria and engaged in shared decision making. Medical Records Medical records reviewed: Yes I reviewed the patient's medical records. Imaging Data Radiologic Study: Imaging: CT Scan Radiologist's impression: VRAD shows DVTs right external iliac and left common iliac extending into the femoral veins bilaterally, question ileus with dilated bowel loops occlusion and distal aorta atherosclerosis Lab Data Lab results reviewed: Yes I reviewed the patient's lab results. Labs: Laboratory Tests Range/Units 06/24/23 06/24/23 13:10 14:12 WBC (4.4-10.8) 10^3/uL 6.57 RBC (3.93-5.22) 10^6/uL 1.74 L Hgb (11.2-15.7) g/dL 6.0 L* Hct (36.0-46.0) % 18.1 L* MCV (80-95) fL 104 H MCH (27.0-33.0) pg 34.5 H MCHC (32.0-36.0) % 33.1 RDW (11.7-14.6) % 13.4 Plt Count (130-400) 10^3/uL 71 L MPV (8.0-11.0) fL 10.8 Immature Gran % 1.2 Neutrophils % 70.4 Lymphocytes % 21.6 Monocytes % 6.5 Eosinophils % 0.3 Basophils % 0.0 Nucleated RBC % (0.0-0.3) % 0.5 H Absolute Neutrophils (1.2-6.7) 10^3/uL 4.62 Absolute Lymphocytes (1.2-3.4) 10^3/uL 1.42 Absolute Monocytes (0.1-0.8) 10^3/uL 0.43 Absolute Eosinophils (0.0-0.7) 10^3/uL 0.02 Absolute Basophils (0.0-0.2) 10^3/uL 0.00 RBC Morphology Normal Sodium (136-145) mmol/L 138 Potassium (3.5-5.1) mmol/L 2.0 L* Chloride (98-107) mmol/L 102 Carbon Dioxide (21.0-32.0) mmol/L 32.4 H Anion Gap (3-11) mmol/L 3.6 BUN (7-18) mg/dL 9 Creatinine (0.55-1.02) mg/dL 1.0 Est GFR (CKD-EPI 2020) (mL/min/1.73m2) 60.61 Glucose (74-106) mg/dL 114 H Calcium (8.5-10.1) mg/dL 8.1 L Magnesium (1.8-2.4) mg/dL 1.9 Total Bilirubin (0.2-1.0) mg/dL 0.5 AST (15-37) U/L 49 H ALT (14-59) U/L 17 Alkaline Phosphatase (46-116) U/L 148 H Creatine Kinase (26-192) U/L 159 NT-Pro-B Natriuret Pep (<300) pg/mL 73634 H Total Protein (6.4-8.2) g/dL 5.9 L Albumin (3.4-5.0) g/dL 1.8 L Lipase (16-77) U/L 31 Patient ABO/Rh A Positive A Positive Antibody Screen NEGATIVE HPI General Date/Time Provider Initiated Documentation: 06/24/23 13:23. HPI Narrative: 72 year-old female presents to ED today by EMS with a chief complaint of generalized weakness with onset noted for the past few days. 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 Quality described as generalized weakness without pain, poor PO intake, no radiation to fever, chest pain, shortness of breath, endorses mild epigastric pain, has been having baseline urinary and bowel habits at home, and has a commode next to the couch which he sometimes makes it to. She states that she has not been able to get up off the couch with her at home. Severity is described as 9/10 for weakness. Palliating factors include nothing specific attempted. Provoking factors include nothing specific. Patient not anticoagulated. Related Data Home Medications Medication Instructions Recorded Confirmed aspirin 81 mg tablet,delayed 81 mg PO DAILY 07/28/21 06/24/23 release atorvastatin 20 mg tablet 40 mg PO QPM 07/28/21 06/24/23 acetaminophen 500 mg tablet 1,000 mg PO .Q6HRS PRN 08/10/21 06/24/23 (Tylenol Extra Strength) dexamethasone 4 mg tablet See Rx Instructions .Route .COMPLEX 10/19/22 06/24/23 hydromorphone 4 mg tablet 4 mg PO Q4H 10/19/22 06/24/23 prochlorperazine maleate 10 mg 6 mg PO Q6H PRN 10/19/22 06/24/23 tablet hydroxyzine HCl 25 mg tablet 25 mg PO QID PRN #14 tabs 02/01/23 06/24/23 Previous Rx's Medication Instructions Recorded hydroxyzine HCl 25 mg tablet 25 mg PO QID PRN #14 tabs 02/01/23 Allergies Allergy/AdvReac Type Severity Reaction Status Date / Time No Known Allergies Allergy Unverified 06/24/23 13:17 General Stated Complaint: GenMedical JOLLY: 3 Review of Systems All systems reviewed & are unremarkable except as noted in HPI and below PFSH All Active Problems (Updated 06/12/23 @ 14:05 by CRYSTAL Villalobos) Hypokalemia (Acute) Closed fracture of left pelvis (Acute) Lumbago (Acute) Social History Smoking/Tobacco Use Status: Former Tobacco Use Quit Date: 10/11/22 Smoking risk assessment performed?: Yes Alcohol Intake: never Drug use: Never Substance use type: does not use Housing: house Do you feel safe at home: Yes Do you feel safe in your relationship?: Yes Additional Social history: Lives with Exam Narrative Exam Narrative: GENERAL APPEARANCE: Malnourished, frail, non-toxic, awake and alert, atraumatic, no acute distress. SKIN: Warm, pale, dry, intact, without rashes/lesions/ulcerations. HEAD: Normocephalic, atraumatic, normal hair distribution for gender/age. EYES: Pupils PERRLA, EOMs intact without nystagmus, normal conjunctiva, no exudates on lids/lashes. ENT: Nares patent, no circumoral cyanosis, no facial swelling NECK: Supple, trachea midline, painless cervical ROM. LUNGS/CHEST: Lungs CTA bilaterally - no rhonchi/rales/wheezes diffusely, non-labored respirations, normal A/P diameter, symmetrical expansion, no chest wall deformity HEART (CV/PV): Regular rate and rhythm without murmur, no peripheral edema, no JVD. ABDOMEN: Soft, non-distended, no guarding, mild epigastric tenderness without Rovsing's or rebound tenderness. Rectal: No joy blood on JOSE, Stool occult card negative, brown stool present in underwear MSK: Normal ROM, no swelling/deformity to bilateral UEs or LEs, moving all extremities without weakness, no cyanosis, spine midline without tenderness, normal curvature. NEURO: Mental Status AAOx4 - alert to person, place, time, events No facial droop, no forehead involvement. Motor: No focal weakness - strength 5/5 in bilateral UEs and LEs, proximal and distal, symmetric. Sensory: sensation intact to light touch globally. Gait NT. PSYCH: euthymic, cooperative, pleasant, appropriate speech Course Vital Signs Vital signs: Vital Signs Temperature 37.1 C 06/24/23 13:18 Pulse 77 06/24/23 13:18 Respiratory Rate 20 06/24/23 13:18 Blood Pressure 117/54 L 06/24/23 13:18 Pulse Oximetry 99 06/24/23 13:18 Temperature 37.1 C 06/24/23 13:18 Temperature Source Oral 06/24/23 13:18 Pulse 77 06/24/23 13:18 Respiratory Rate 20 06/24/23 13:18 Respiratory Effort Normal 06/24/23 13:21 Respiratory Depth Normal 06/24/23 13:21 Respiratory Pattern Normal 06/24/23 13:21 Blood Pressure 117/54 L 06/24/23 13:18 Blood Pressure Position Sitting 06/24/23 13:18 Pulse Oximetry 99 06/24/23 13:18 Oxygen Delivery Method Room Air 06/24/23 13:18 Oxygen Flow Rate 0 06/24/23 13:18 Sign Out Sign Out Data: Sign Out Comment: Stage IV cancer patient followed by [facility] oncology presents with profound weakness, has been sedentary on the couch while her track subway repair supervisor was admitted to [facility] for pneumonia. She feels profound anemia with hemoglobin of 6.0, CT chest abdomen pelvis was performed that shows extensive iliac and femoral DVTs, question some occlusive pathology in the aorta though she is neurovascularly intact in bilateral lower extremities. Discussed with our hospitalist who recommends transfer as the patient has profound anemia and requires anticoagulation, needs vascular surgery consult but also oncology consult for goals of treatment and viability as a surgical candidate. [facility] transfer center is aware and images have been pushed, the patient is receiving 1 unit of packed RBCs as well as replating her critical hypokalemia. Last updated by Jamarcus Alfredo PA at 06/24/23 16:03
--- NOTE | 2023-06-24 13:30 | RT.EKG_ITS ---
APPROVED REPORT Exam: Resting ECG Reason for Exam: weakness Patient Location: E HR:75 bpm ECG Measurements Heart Rate 75 AXIS OK 137 P 33 QRSd 76 QRS 19 QT 439 T -54 QTc 492 Conclusion Sinus rhythm...normal P axis, V-rate 60- 99 normal intervals and axis minor sttw changes, minor changes from previous. Slight st elevation <1 mm in the inferior leads.
[2023-06-24 13:52] LABS: Abs Immature Grans 0.08 10^3/uL (0.0-0.06); Absolute Eosinophil Count 0.02 10^3/uL (0.0-0.7); Absolute Lymphocyte Count 1.42 10^3/uL (1.2-3.4); Absolute Monocyte Count 0.43 10^3/uL (0.1-0.8); Absolute Neutrophil Count 4.62 10^3/uL (1.2-6.7); Eosinophils % 0.3; Immature Grans % 1.2; Lymphocytes % 21.6; MCH 34.5 pg (27.0-33.0); MCHC 33.1 % (32.0-36.0); MCV 104 fL (80-95); MPV 10.8 fL (8.0-11.0); Monocytes % 6.5; Neutrophils % 70.4; Nucleated RBC 0.5 % (0.0-0.3); RBC 1.74 10^6/uL (3.93-5.22); RDW 13.4 % (11.7-14.6); RDW-SD 49.9 fL; WBC 6.57 10^3/uL (4.4-10.8)
--- NOTE | 2023-06-24 13:53 | DI.CT_ITS ---
Exam(s) CT ABDOMEN PELVIS WO EXAM: CT ABDOMEN PELVIS WO CLINICAL HISTORY: GI Bleeding. TECHNIQUE: Imaging Protocol: Axial computed tomography images with coronal and sagittal reformatted images were created and reviewed CONTRAST MATERIAL: Intravenous: none Oral: None COMPARISON: CT CT ABDOMEN PELVIS W from 10/19/[address] CHEST PE CTA from 02/01/2023 FINDINGS: VISUALIZED LUNG BASES: There are significant pleural effusions evident, left slightly larger than rig ht. ABDOMEN: There is anasarca now evident which is symmetrical in the subcutaneous fat over both sides of the abd omen and pelvis, not present on the prior study of January 2023. LIVER: Multiple small focal hypodensities in the liver are noted which are difficult to assess withou t IV contrast. These all measure less than 1 cm. GALLBLADDER/BILIARY: Gallbladder lumen is moderately distended. There are no radiopaque calculi seen in the gallbladder lumen. Gallbladder wall does not appear edematous and there is no pericholecysti c fluid. CBD is not dilated. Duodenum C-loop is noted to be distended (3.5 cm) to the level of the ligament of Treitz. Jejunal lo ops are not distended but are upper normal diameter. PANCREAS: No evidence of pancreatic mass nor dilatation of the pancreatic duct. SPLEEN: Spleen is not enlarged. No obvious intrasplenic lesions. ADRENALS: No obvious adrenal masses. KIDNEYS:No cysts evident. No solid renal masses. No calculi nor hydronephrosis. . ABDOMINAL AORTA: Heavily calcified including lumen. Suspect that there may be aorta conclusion here although cannot assess accurately on a noninfused study. The common iliac arteries are also heavily calcified. Not dilated. LYMPH NODES: There is no retroperitoneal nor paraaortic adenopathy. ABDOMINAL WALL: No evidence of significant anterior abdominal wall nor inguinal hernia. GI: Small bowel loops beyond the ligament of Treitz are not dilated. No colitis pattern. There is a calculus at the junction of the cecal base and appendix. No evidence of acute appendicitis at this time. PELVIS: LYMPH NODES: There is no intrapelvic nor inguinal adenopathy. GI: There is diverticulosis of the sigmoid without evidence of obvious acute diverticulitis. URINARY BLADDER: Moderately distended. REPRODUCTIVE: Uterus normal size. No abnormal adnexal masses nor free fluid in the pelvis. OSSEOUS: There is a healing fracture of the inferior left pubic ramus which appeared acute in March 2 023. There is also a high-level wedge compression fracture of T11 noted which is unchanged from [facility] 2022. Loss of height superior endplate of L3 is unchanged. Schmorl's node invagination superior e ndplate L1 also unchanged.. No new significant osseous lesions. IMPRESSION: 1. Bilateral pleural effusions, left larger than right. Also symmetrical anasarca now evident which was not evident on the prior CT scan of January 2023 paired 2. Large amount of calcified plaque in the nondilated aorta and iliac arteries. Suspect that there m ay be an element of possible aortic obstruction here, difficult to assess without IV contrast. 3. Somewhat distended gallbladder lumen. No obvious acute cholecystitis. Distended duodenal C-loop. No dilated bowel loops distal to the ligament of Treitz. This distension of the duodenal C-loop was previously present and may be chronic. Numerous small hypodensities in the liver again noted which are difficult to assess without IV contra st. Possibly represent tiny cysts. RADIATION DOSE DELIVERED: Total DLP DATA REPOSITORY: All CT scans at this facility are submitted to the National Radiology Data Registry (NRDR) Dose Index Registry (DIR) with the [employer] (ACR). RADIATION OPTIMIZATION: All CT scans at this facility use at least one of these dose optimization te chniques: automated exposure control; mA and/or kV adjustment per patient size (includes targeted exa ms where dose is matched to clinical indication); or iterative reconstruction.
--- NOTE | 2023-06-24 13:53 | DI.CT_ITS ---
Exam(s) CT CHEST/ABD/PEL W EXAM: CT CHEST/ABD/PEL W CLINICAL HISTORY: weakness, SOB. TECHNIQUE: Imaging Protocol: Axial computed tomography images with coronal and sagittal reformatted images were created and reviewed CONTRAST MATERIAL: Intravenous: Omnipaque 350 Contrast volume:100 ml Oral: None COMPARISON: CT CT CHEST W from 05/01/[address] ABDOMEN PELVIS WO from 06/24/2023 FINDINGS: CHEST: LUNGS: There is stable scarring in the right lung apex and sub apical region of the right upper lobe. . There are now bilateral pleural effusions, left larger than right. There is also an area of infilt rate in the right lower lobe again noted. MEDIASTINUM: There is no hilar nor mediastinal adenopathy. Visualized thyroid unremarkable. CARDIAC: Heart size is normal. There is no pericardial effusion.Caliber of the ascending thoracic ao rta is within normal limits and there is no dissection evident. OSSEOUS: T11 wedge compression fracture again noted. Also stable compression fractures at superior en dplates of L1 and L3. No new fractures identified. No significant osseous lesions.. ABDOMEN: There is symmetrical subcutaneous anasarca over both sides of the abdomen and pelvis. LIVER: Multiple small sub cm cysts are again noted throughout the liver involving both lobes. No dila ashwin intrahepatic ducts. CBD is not dilated. GALLBLADDER/BILIARY: Somewhat distended. No obvious gallstones. No gallbladder wall edema although th ere is some enhancement of the gallbladder wall noted. There is no pericholecystic fluid. . The duod enal C-loop is dilated to the ligament of Treitz which is not a new finding. PANCREAS: No evidence of pancreatic mass nor dilatation of the pancreatic duct. SPLEEN: Spleen size normal. There is a small sub cm cyst in the peripheral aspect of the subcapsular spleen. Splenic and portal veins are patent. ADRENALS: There are no new significant adrenal masses. KIDNEYS: No calculi nor hydronephrosis. No solid renal masses. No cysts evident. ABDOMINAL AORTA: No aneurysm but the abdominal aorta is severely atherosclerotic with lumen calcifica tion and there appears to be occlusion of the lumen of the in its lower 3rd. Common iliac arteries ar e also heavily calcified and probably occluded. LYMPH NODES: There is no retroperitoneal nor paraaortic adenopathy. ABDOMINAL WALL: No evidence of significant anterior abdominal wall nor inguinal hernia. GI: Fluid-filled jejunal loops with mural enhancement noted but no prominent bowel wall edema. Suspec t ileus pattern. Small bowel loop diameters are upper normal, averaging 2.2 cm in the left side of th e abdomen.. PELVIS: LYMPH NODES: There is no intrapelvic nor inguinal adenopathy. GI: No evidence of appendicitis.Sigmoid diverticulosis. No obvious acute diverticulitis. URINARY BLADDER: Distended. REPRODUCTIVE: Uterus size normal. No adnexal masses. No free fluid in the pelvis. OSSEOUS: Nonacute appearing partially healed fracture of the inferior pubic ramus left side. Also hea ling fracture site in the anterior left acetabulum. No obvious acute fractures evident. Vertebral com pression fractures described above her stable no ominous osseous lesions. IMPRESSION: 1. There are bilateral pleural effusions left larger than right. There is infiltrate in the right low er lobe. Close follow-up recommended. 2. There is anasarca but no ascites evident. 3. The abdominal aorta is heavily calcified but not enlarged as are the common iliac arteries and the re appears to be occlusion of the abdominal aorta above the level of the inferior mesenteric artery. 4. Chronically dilated duodenal C-loop and there is an ileus pattern of jejunal small bowel loops. No ascites. No acute small bowel obstruction evident 5. multiple small cysts in the liver again noted. Other findings as above. Fractures as described above which do not appear acute. No acute fractures evident. RADIATION DOSE DELIVERED: Total DLP DATA REPOSITORY: All CT scans at this facility are submitted to the National Radiology Data Registry (NRDR) Dose Index Registry (DIR) with the [employer] (ACR). RADIATION OPTIMIZATION: All CT scans at this facility use at least one of these dose optimization te chniques: automated exposure control; mA and/or kV adjustment per patient size (includes targeted exa ms where dose is matched to clinical indication); or iterative reconstruction.
[2023-06-24 13:54] LABS: HCT 18.1 % (36.0-46.0)
[2023-06-24 13:58] LABS: Diff Comment Diff Reviewed; Platelet Count 71 10^3/uL (130-400); RBC Morphology Normal
[2023-06-24 14:07] LABS: ALT 17 U/L (14-59); AST 49 U/L (15-37); Albumin 1.8 g/dL (3.4-5.0); Alkaline Phosphatase 148 U/L (46-116); Anion Gap 3.6 mmol/L (3-11); BUN 9 mg/dL (7-18); Bilirubin, Total 0.5 mg/dL (0.2-1.0); CO2 32.4 mmol/L (21.0-32.0); Calcium 8.1 mg/dL (8.5-10.1); Chloride 102 mmol/L (98-107); Estimated GFR 60.61 (mL/min/1.73m2); Glucose 114 mg/dL (74-106); Magnesium 1.9 mg/dL (1.8-2.4); Sodium 138 mmol/L (136-145); Total Protein 5.9 g/dL (6.4-8.2)
[2023-06-24 14:18] LABS: Creatine Kinase 159 U/L (26-192); Lipase 31 U/L (16-77); NT-proBNP 10233 pg/mL (<300)
[2023-06-24] MEDS: Normal Saline - Diluent 50 ML VIAL IJ (14:40)
[2023-06-24] MEDS: Omnipaque 350 MG/ML 100 ML BTL IJ (14:42)
[2023-06-24] MEDS: POTASSIUM CHLORIDE 10 MEQ/100 ML BAG 100 MEQ IVPB (15:17)
--- NOTE | 2023-06-24 15:36 | DI.VRAD_ITS ---
Addendum created by Ramsey Hayes MD on 06/24/2023 3:47:05 PM EST: THIS REPORT CONTAINS FINDINGS THAT MAY BE CRITICAL TO PATIENT CARE. The findings were verbally communicated via telephone conference with Jamarcus Alfredo at 3:46 PM EST on 06/24/2023. The findings were acknowledged and understood. Initial report created on 06/24/2023 3:36:09 PM EST: PROCEDURE INFORMATION: Exam: CT Abdomen And Pelvis Without Contrast Exam date and time: 06/24/2023 2:52 PM Age: 72 years old Clinical indication: Other: Weakness, SOB TECHNIQUE: Imaging protocol: Computed tomography of the abdomen and pelvis without contrast. COMPARISON: CT ABDOMEN PELVIS W 10/19/2022 4:17 PM FINDINGS: Lungs: Consolidation in the right lower lobe may represent atelectasis or pneumonia.. Pleural spaces: Moderate left pleural effusion. Smaller right pleural effusion.. Liver: Again noted are multiple low-attenuation lesions throughout the liver Gallbladder and bile ducts: Increasing distention of the gallbladder.. Pancreas: Calcifications in the pancreas consistent with chronic pancreatitis. Spleen: Normal. No splenomegaly. Adrenal glands: Normal. No mass. Kidneys and ureters: There is no evidence of renal or ureteral calcifications. Stomach and bowel: Stable dilatation in the 2nd and 3rd duodenal were present on the prior study and may be chronic. . Mildly dilated fluid-filled loops of small bowel in the jejunum taper more distally. Findings may reflect early obstruction versus ileus.. Diverticulosis of the rectosigmoid. No diverticulitis Appendix: Normal appendix Intraperitoneal space: Unremarkable. No free air. No significant fluid collection. Vasculature: Large amount of plaque formation in the aorta . Series 2, image 20-29 Occlusion in the distal aorta was demonstrated on the prior study.. Lymph nodes: Unremarkable. No enlarged lymph nodes. Urinary bladder: Unremarkable as visualized. Reproductive: Unremarkable as visualized. Bones/joints: Healing left superior and inferior pubic ramus fractures lucencies in the left tawny sacrum may represent insufficiency fractures. Stable Severe compression fracture of T11. Mild compression fracture of L1 and L3. Soft tissues: Edema in the subcutaneous fat IMPRESSION: 1. Moderate left pleural effusion. Smaller right pleural effusion.. 2. Consolidation in the right lower lobe may represent atelectasis or pneumonia.. 3. Increasing distention of the gallbladder.. 4. Large amount of plaque formation in the aorta . Series 2, image 20-29 Occlusion in the distal aorta was demonstrated on the prior study.. 5. Stable dilatation in the 2nd and 3rd duodenal were present on the prior study and may be chronic. . 6. Mildly dilated fluid-filled loops of small bowel in the jejunum taper more distally. Findings may reflect early obstruction versus ileus.. Dictated and Authenticated by: Ramsey Hayes MD. Ordering:NESSA Ricketts MD
--- NOTE | 2023-06-24 15:48 | DI.VRAD_ITS ---
Addendum created by Ramsey Hayes MD on 06/24/2023 3:48:30 PM EST: Addendum please disregard the 1st words of the addendum-It indicates in spread that she would done [employer] Addendum created by Ramsey Hayes MD on 06/24/2023 3:47:34 PM EST: It indicates in spread that she would done XELOXTHIS REPORT CONTAINS FINDINGS THAT MAY BE CRITICAL TO PATIENT CARE. The findings were verbally communicated via telephone conference with Jamarcus Alfredo at 3:47 PM EST on 06/24/2023. The findings were acknowledged and understood. Initial report created on 06/24/2023 3:42:52 PM EST: PROCEDURE INFORMATION: Exam: CT Chest With Contrast; Diagnostic Exam date and time: 06/24/2023 2:56 PM Age: 72 years old Clinical indication: Other: Gi bleeding; Patient HX: Stage 4 lung CA TECHNIQUE: Imaging protocol: Diagnostic computed tomography of the chest with contrast. 3D rendering (Not supervised by radiologist): MIP and/or 3D reconstructed images were created by the technologist. Contrast material: OMNIPAQUE 350; Contrast volume: 80 ml; Contrast route: INTRAVENOUS (IV); COMPARISON: CT CHEST W 05/01/2023 12:47 PM FINDINGS: Tubes, catheters and devices: MediPort terminates in the superior vena cava Lungs: Mild panlobular emphysematous changes. Stable scarring in the right lung apex. No new pulmonary nodules. Consolidation in the lower lobes may represent atelectasis or pneumonia.. Pleural spaces: Moderate left pleural effusion. Smaller right pleural effusion.. Heart: Unremarkable. No cardiomegaly. No pericardial effusion. Lymph nodes: Unremarkable. No enlarged lymph nodes. Vasculature: Unremarkable. No aortic aneurysm. Bones/joints: Unremarkable. No acute fracture. Soft tissues: Unremarkable. IMPRESSION: 1. Moderate left pleural effusion. Smaller right pleural effusion.. 2. No new pulmonary nodules. 3. Consolidation in the lower lobes may represent atelectasis or pneumonia.. PROCEDURE INFORMATION: Exam: CT Abdomen And Pelvis With Contrast Exam date and time: 06/24/2023 2:56 PM Age: 72 years old Clinical indication: Other: Gi bleeding; Patient HX: Stage 4 lung CA TECHNIQUE: Imaging protocol: Computed tomography of the abdomen and pelvis with contrast. 3D rendering (Not supervised by radiologist): MIP and/or 3D reconstructed images were created by the technologist. Contrast material: OMNIPAQUE 350; Contrast volume: 80 ml; Contrast route: INTRAVENOUS (IV); COMPARISON: CT ABDOMEN PELVIS WO 06/24/2023 2:52 PM FINDINGS: Liver: Again noted are multiple low-attenuation lesions throughout the liver Gallbladder and bile ducts: Increasing distention of the gallbladder.. Pancreas: Calcifications in the pancreas consistent with chronic pancreatitis. Spleen: Normal. No splenomegaly. Adrenal glands: Normal. No mass. Kidneys and ureters: There is no evidence of renal or ureteral calcifications. Stomach and bowel: Stable dilatation in the 2nd and 3rd duodenal were present on the prior study and may be chronic. .. Mildly dilated fluid-filled loops of small bowel in the jejunum taper more distally. Findings may reflect early obstruction versus ileus.. . Diverticulosis of the rectosigmoid. No diverticulitis Appendix: No evidence of appendicitis. Intraperitoneal space: Unremarkable. No free air. No significant fluid collection. Vasculature: Thrombus in the right external iliac vein and left common iliac vein extending into the femoral veins bilaterally.. Large amount of atherosclerosis in the distal aorta and common iliac arteries . Occlusion in the distal aorta. For example series 3, image 65. There may be occlusion in the proximal common iliac arteries as well.. Lymph nodes: Unremarkable. No enlarged lymph nodes. Urinary bladder: Unremarkable as visualized. Reproductive: Unremarkable as visualized. Bones/joints: Healing left superior and inferior pubic ramus fractures lucencies in the left tawny sacrum may represent insufficiency fractures. Stable Severe compression fracture of T11. Mild compression fracture of L1 and L3. Soft tissues: Edema in the subcutaneous fat IMPRESSION: 1. Thrombus in the right external iliac vein and left common iliac vein extending into the femoral veins bilaterally.. 2. Stable dilatation in the 2nd and 3rd duodenal were present on the prior study and may be chronic. .. 3. Mildly dilated fluid-filled loops of small bowel in the jejunum taper more distally. Findings may reflect early obstruction versus ileus.. . 4. Large amount of atherosclerosis in the distal aorta and common iliac arteries . Occlusion in the distal aorta. For example series 3, image 65. There may be occlusion in the proximal common iliac arteries as well.. Dictated and Authenticated by: Ramsey Hayes MD. Ordering:NESSA Ricketts MD
[2023-06-24] MEDS: POTASSIUM CHLORIDE 20 MEQ/100 ML BAG 50 MEQ IVPB ×3 (16:15→22:09)
--- NOTE | 2023-06-24 16:24 | W.EDPROG ---
Date of service: 06/24/23 Time of Service: 16:05 Medical Decision Making Patient signed out to me pending consult from [facility]. Patient has stage IV lung cancer, has been home alone for the past couple days and has had drastic deterioration of condition with nursing noting sacral stage II pressure ulcer that was covered with Mepilex, profound weakness that is diffuse nonfocal, anemia with hemoglobin of 6 and soft blood pressures requiring blood transfusion, and hypokalemia with potassium of 2. CT imaging showed concerning findings for iliac DVTs with high probability in need of IVC. Patient is a full code and is wanting as much done. [facility] vascular surgery and oncology have been consulted due heavy thrombus load. 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 Transfer center stated they would speak with [facility] still waiting to speak with vascular surgery. Pending speaking with vascular I did speak with the on-call fellow with oncology. She did recommend anticoagulating with heparin due to the DVTs but did agree that this did have some risk involved. Again still waiting to hear from [facility] I did speak to patient in regard to risk versus benefit and with further discussion patient is refusing transfer to any additional facility, states that she does not want any vascular surgery intervention such as an IVC filter and that her goals are to remain comfortable. Did further discuss what this meant to patient including CODE STATUS and after further discussion with patient's friend being in the room along with nurse there as well patient did clearly state that she did not want CPR or intubation if she would deteriorate. Patient also stated clear verbal understanding of risk of possible bleeding episode with anticoagulation in the setting of her low platelets and already low blood counts. Given that patient does not want transfer or aggressive interventions I did contact Dr. Peña attending hospitalist at our facility who did agree to have patient admitted here for further management. In regards to patient goals and outcomes I do feel it would be beneficial for a palliative care/hospice consult which I did order prior to her admission. Lab Data Lab results reviewed: Yes I reviewed the patient's lab results. 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 She feels profound anemia with hemoglobin of 6.0, CT chest abdomen pelvis was performed that shows extensive iliac and femoral DVTs, question some occlusive pathology in the aorta though she is neurovascularly intact in bilateral lower extremities. Discussed with our hospitalist who recommends transfer as the patient has profound anemia and requires anticoagulation, needs vascular surgery consult but also oncology consult for goals of treatment and viability as a surgical candidate. [facility] is aware and images have been pushed, the patient is receiving 1 unit of packed RBCs as well as replating her critical hypokalemia. Last updated by Jamarcus Alfredo PA at 06/24/23 16:03 Discharge Plan Disposition Patient Disposition: Admit to [facility] Discharge Details Clinical Impression: Chronic distal aortic occlusion, Anemia, Stage 4 lung cancer, Hypokalemia Admit Date/Time: 06/24/23 15:25 Admit Provider: Jeremy Freire Attending Provider: Jeremy Freire Primary Care Provider: Nitish Mccoy ED Provider: Saeid Ray
--- NOTE | 2023-06-24 16:31 | NUR.NOTE ---
Nursing Note: Blood infusing appropriately through PIV, and potassium infusing through port. Pt does not complain of pain other than two ulcers on back. Pt ulcers stage 2 and covered immediately with mepalex dressing. Ulcer on coccyx worse than upper back. Pt aware of wounds and stated, those have been bothering me for a while. Pt understands next steps of care. Pt throughly cleaned after incontinence of stool and urine. Purewick applied and depends placed for comfort. Pt thanked this RN profusely for care.
[2023-06-24 17:11] LABS: Bilirubin Negative (Negative); Blood Negative (Negative); Clarity Clear (Clear); Glucose Negative (Negative); Ketones Negative (Negative); Leukocyte Esterase Negative (Negative); Nitrite Negative (Negative); Urobilinogen 0.2 mg/dL (Up to 0.2)
[2023-06-24] MEDS: Heparin in 0.45% NaCl 25,000 UNIT/250 ML BAG 850 UNIT IV (18:14)
--- NOTE | 2023-06-24 18:14 | W.PM.HP.N ---
Date of service: 06/24/23 Time of Service: 18:14 Assessment and Plan Assessment and plan (1) Anemia: Status: Chronic Assessment and plan: patient w/ progressive anemia but no signs or symptoms of GI bleeding, i.e. no melena or hematochezia and stool was negative for occult blood in the E.D. She was ordered one unit of PRBC in the E.D. and I will order another unit for tonight. She will go on GI protection w/ protonix since we do not know the source of her anemia (presumably cancer related) and she is on heparin for an alleged bilateral iliofemoral DVT (althoug Dr. Dowling did not read it this way). I think that in the morning the day hospitalist should consult w/ our radiologist and if still unclear get vascular consult to read her CTA. Patient does not want tranfer and does not want a procedure. Professional time spent interviewing and examining patient, discussion of goals of care with hospital team (care management, nursing and consulting professionals) was 60 minutes. Qualifiers: Anemia type: unspecified type Qualified Code(s): D64.9 - Anemia, unspecified (2) Deep vein thrombosis (DVT) of iliofemoral vein: Status: Suspected Assessment and plan: as above, will have hospitalist tomorrow review studies w/ our in house radiologist and/or get vascular consult, will heparinize for now Qualifiers: Laterality: bilateral Qualified Code(s): I82.423 - Acute embolism and thrombosis of iliac vein, bilateral (3) Hypokalemia: Status: Acute Assessment and plan: need parenteral and enteral replacement (4) Community acquired pneumonia of right lower lobe of lung: Status: Acute Assessment and plan: per CT she has bilateral pleural effusions and a right lower lobe infiltrate; unclear as to whether this is pneumonia vs atelectasis or tumor. Clinically she is not having fever but has chronic chills, no sputum production; she has chronic dyspnea, I will cover empirically w/ Ceftriaxone and doxycycline. I have ordered urine Strep and Legionella antigen and procalcitonin. (5) Stage 4 lung cancer: Status: Acute Assessment and plan: reportedly stable, last chemotherapy was 3 weeks ago. We need to get records from oncology. Qualifiers: Laterality: unspecified laterality Qualified Code(s): C34.90 - Malignant neoplasm of unspecified part of unspecified bronchus or lung (6) Protein malnutrition: Status: Acute Assessment and plan: will begin on protein supplements, ask for nutrition consult (7) Chronic distal aortic occlusion: Status: Acute Assessment and plan: her distal aortic occlusion has been known at [facility] since November 2020 (see aorta w/ runoff study). She has very poor circulation in her legs/feet, no palpable (8) DNR (do not resuscitate): Status: Acute Assessment and plan: per patient she is DNR/DNI, she does not have COLST form, I will have Palliative care meet w/ her and assist in COLST History of Present Illness History of Present Illness Chief Complaint: weakness x 2 days Narrative: 72 yr old female w/ stage IV lung cancer who was brought to the ED by family friend d/t patient experiencing generalized weakness and inability to care for herself. Her was recently hospitalized the past 3 days for pneumonia, he is her primary caregiver. Patient has had poor oral intake for past couple days. she denies any vomiting or fever or rigors or diarrhea but complains of mild epigastric pain. Evaluation by the ED personnel (Jamarcus Alfredo) included the following diagnostic: CBC: profound anemia 6.0 (last Hb WS 7.4 on 06/12 and was 9.9 on 02/01, normal WBC 6570, low platelets 71,000 CMP; K+ 2.0, Mg1.9, normal BUN and creatinine 9 and 1.0 UA: normal SARS-Cov2 swab pending CTA: chest/abdomen/pelvis: IMPRESSION: 1. There are bilateral pleural effusions left larger than right. There is infiltrate in the right lower lobe. Close follow-up recommended. 2. There is anasarca but no ascites evident. 3. The abdominal aorta is heavily calcified but not enlarged as are the common iliac arteries and there appears to be occlusion of the abdominal aorta above the level of the inferior mesenteric artery. 4. Chronically dilated duodenal C-loop and there is an ileus pattern of jejunal small bowel loops. No ascites. No acute small bowel obstruction evident 5. multiple small cysts in the liver again noted. This was an overread by Dr. Dowling, in house radiologist However, the V-rad radiologist, Dr. Ramsey Hayes read the CTA as follows: IMPRESSION: 1. Moderate left pleural effusion. Smaller right pleural effusion.. 2. No new pulmonary nodules. 3. Consolidation in the lower lobes may represent atelectasis or pneumonia IMPRESSION: 1. Thrombus in the right external iliac vein and left common iliac vein extending into the femoral veins bilaterally.. 2. Stable dilatation in the 2nd and 3rd duodenal were present on the prior study and may be chronic. .. 3. Mildly dilated fluid-filled loops of small bowel in the jejunum taper more distally. Findings may reflect early obstruction versus ileus.. . 4. Large amount of atherosclerosis in the distal aorta and common iliac arteries . Occlusion in the distal aorta. For example series 3, image 65. There may be occlusion in the proximal common iliac arteries as well. When told by the E.D. provider, CRYSTAL Villa, about the DVT in the right external iliac and the left common iliac vein w/ extension to the femoral veins, I recommended referral to [facility] vascular as the patient is severely anemic, high risk for bleeding complications from anticoagulation and should be considered for IR guided IVC filter. Mr. Alfredo passed the case of to MrRegina Saeid Ray who reports to me that he spoke w/ [facility] heme/onc provider who indicated that the patient does not need an IVC filter and to just anticoagulate her w/ heparin. A vascular consult although was requested was never received. Per Mr Ray, he says that the MICU was contacted and reviewed her case and says she does not need transfer to the ICU and [facility] had no medical beds for transfer and they refused transfer. Vascular was never contacted by the [facility] transfer center. When Mr Ray spoke w/ the patient about transfer, she indicated she wants to only be treated her and does not want transfer to [facility] nor does she want a vascular procedure. Patient will be admitted to [facility], heparinized but given transfusions of 2 units of blood and have her electrolytes corrected. Unclear whether or not this RLL infiltrate is pneumonia, tumor or atelectasis. Will cover her empirically and monitor inflammtory markers, oxygen levels, etc. Review of Systems Constitutional Constitutional: Reports chills (but not rigors), Reports fatigue, Reports lethargy, Reports malaise, Reports poor appetite (early satiety) and Reports weight loss (25 lb over past 7 months) Cardiovascular Cardiovascular: Denies chest pain, Denies leg edema and Reports dyspnea on exertion Respiratory Respiratory: Denies cough, Denies hemoptysis, Denies excessive phlegm production, Reports dyspnea on exertion and Denies wheezing Gastrointestinal Gastrointestinal: Denies abdominal pain, Denies melena, Denies hematochezia and Denies vomiting Genitourinary Genitourinary: Reports system reviewed and no additional complaints, except as documented Musculoskeletal Musculoskeletal: Reports system reviewed and no additional complaints, except as documented Endocrine Endocrine: Reports fatigue Hematologic/Lymphatic Hematologic/Lymphatic: Reports easy bruising Allergic/Immunologic Allergic/Immunologic: Denies wheezing PFSH All Active Problems (Updated 06/24/23 @ 21:21 by Jeremy Freire MD) Community acquired pneumonia of right lower lobe of lung (Acute) DNR (do not resuscitate) (Acute) Protein malnutrition (Acute) Chronic distal aortic occlusion (Acute) Anemia (Chronic) Stage 4 lung cancer (Acute) Hypokalemia (Acute) Closed fracture of left pelvis (Acute) Lumbago (Acute) Social History Smoking/Tobacco Use Status: Former Tobacco Use Quit Date: 10/11/22 Smoking risk assessment performed?: Yes Alcohol Intake: never Drug use: Never Substance use type: does not use Housing: house Do you feel safe at home: Yes Do you feel safe in your relationship?: Yes Additional Social history: Lives with Meds Allergies and Home Medications Allergies Allergy/AdvReac Type Severity Reaction Status Date / Time No Known Allergies Allergy Unverified 06/24/23 13:17 Home Medications Medication Instructions Recorded Confirmed Type aspirin 81 mg tablet,delayed 81 mg PO DAILY 07/28/21 06/24/23 History release atorvastatin 20 mg tablet 40 mg PO QPM 07/28/21 06/24/23 History acetaminophen 500 mg tablet 1,000 mg PO .Q6HRS PRN 08/10/21 06/24/23 History (Tylenol Extra Strength) dexamethasone 4 mg tablet See Rx Instructions .Route .COMPLEX 10/19/22 06/24/23 History hydromorphone 4 mg tablet 4 mg PO Q4H 10/19/22 06/24/23 History prochlorperazine maleate 10 mg 6 mg PO Q6H PRN 10/19/22 06/24/23 History tablet hydroxyzine HCl 25 mg tablet 25 mg PO QID PRN #14 tabs 02/01/23 06/24/23 Rx Exam Narrative Exam Narrative: Cachectic elderly female who appears to be much older than her stated age of 72. HEENT is remarkable for dry mucous membranes. Oropharynx is without exudate. Teeth are in poor repair missing all of her upper teeth and only with just a few lower teeth. Neck is supple nontender no JVD. She has bilateral carotid bruits no thyromegaly or adenopathy Heart is regular without murmur rub or gallop no thrill or heave Abdomen is soft nondistended normal bowel sounds no palpable organomegaly no bruits Lower extremities without edema. Skin is very dry crusty she has thickened toenails both feet. Pedal popliteal and femoral pulses are absent. Neuro exam grossly intact no focal cranial nerve deficits no focal motor deficits. Results Labs 06/24/23 20:07 06/24/23 20:07 Labs: Laboratory Results - last 24 hr 06/24/23 06/24/23 06/24/23 13:10 14:12 17:00 WBC 6.57 RBC 1.74 L Hgb 6.0 L* Hct 18.1 L* MCV 104 H MCH 34.5 H MCHC 33.1 RDW 13.4 Plt Count 71 L MPV 10.8 Immature Gran % 1.2 Neutrophils % 70.4 Lymphocytes % 21.6 Monocytes % 6.5 Eosinophils % 0.3 Basophils % 0.0 Nucleated RBC % 0.5 H Absolute Neutrophils 4.62 Absolute Lymphocytes 1.42 Absolute Monocytes 0.43 Absolute Eosinophils 0.02 Absolute Basophils 0.00 RBC Morphology Normal Sodium 138 Potassium 2.0 L* Chloride 102 Carbon Dioxide 32.4 H Anion Gap 3.6 BUN 9 Creatinine 1.0 Est GFR (CKD-EPI 2020) 60.61 Glucose 114 H Calcium 8.1 L Magnesium 1.9 Total Bilirubin 0.5 AST 49 H ALT 17 Alkaline Phosphatase 148 H Creatine Kinase 159 NT-Pro-B Natriuret Pep 64677 H Total Protein 5.9 L Albumin 1.8 L Lipase 31 Urine Color Yellow Urine Clarity Clear Urine pH 7.0 Ur Specific Central 1.010 Urine Protein Negative Urine Ketones Negative Urine Blood Negative Urine Nitrite Negative Urine Bilirubin Negative Urine Urobilinogen 0.2 Ur Leukocyte Esterase Negative Urine Glucose Negative Patient ABO/Rh A Positive A Positive Antibody Screen NEGATIVE Crossmatch See Detail Last Vital Signs Temp 36.7 C 06/24/23 16:46 Pulse 76 06/24/23 17:00 Resp 15 06/24/23 17:01 BP 106/58 L 06/24/23 17:00 Pulse Ox 99 06/24/23 17:01 Time Spent Time spent with Patient: 55-74 minutes Time was spent: preparing to see the patient(eg.review tests), obtaining and/or reviewing separately otained hiistory, ordering medications,tests, procedures, referring, communicating with other health field care advocate, indepentently interpreting results, counseling the patient and care coordination
[2023-06-24 18:22] LABS: Source Nasal/Nares
[2023-06-24 18:38] LABS: INR 1.3 (0.9-1.1); PTT Activated 25.5 sec (23.6-32.8); Prothrombin Time 12.8 sec (9.1-11.1)
[2023-06-24 18:52] LABS: COVID-19 PCR Negative (Negative)
[2023-06-24 20:16] LABS: HGB 7.7 g/dL (11.2-15.7)
[2023-06-24 20:25] LABS: Potassium 2.8 mmol/L (3.5-5.1)
[2023-06-24 21:09] LABS: Lab Add On Test DONE
[2023-06-24 21:45] LABS: Procalcitonin 0.2 ng/mL
[2023-06-24] MEDS: Atorvastatin 20 MG TAB 40 MG PO (22:07)
[2023-06-24] MEDS: Pantoprazole 40 MG VIAL IVP (22:07)
[2023-06-24] MEDS: Potassium Chloride Liquid 20 MEQ PKT PO (22:09)
[2023-06-24] MEDS: Docusate Sodium 100 MG CAP PO (22:10)
[2023-06-24] MEDS: cefTRIAXone 2 GM/50 ML BAG IVPB (22:10)
[2023-06-24] MEDS: hydrOXYzine HCL 25 MG TAB PO (22:10)
[2023-06-24] MEDS: HYDROmorphone 4 MG TAB PO (22:10)
[2023-06-24] MEDS: Acetaminophen 500 MG TAB 1000 MG PO (22:10)
[2023-06-24] MEDS: Normal Saline Flush 10 ML SYR IVP (22:11)
[2023-06-24] MEDS: Heparin in 0.45% NaCl 25,000 UNIT/250 ML BAG 8.5 UNIT IV (22:12)
[2023-06-24] MEDS: Normal Saline Flush 10 ML SYR (22:34)
[2023-06-24] MEDS: DOXYCYCLINE 100 MG in Normal Saline 100 ML IVPB (23:51)
[2023-06-25] VITALS (17 sets, daily range): BP systolic 92–113; BP diastolic 57–85; PULSE 68–95; RESP 7–25; TEMP 36.6–37; O2SAT 98–100
--- NOTE | 2023-06-25 | DI.US_ITS ---
Exam(s) US EXTREMITY VENOUS BI EXAM: US EXTREMITY VENOUS BI CLINICAL HISTORY: ? bilateral venous clots on CTA abdo/pelvis. TECHNIQUE: Bilateral lower extremity venous ultrasound performed using grayscale, color-flow, and sp ectral Doppler analysis. COMPARISON: CT CT CHEST/ABD/PEL W from 06/24/2023 FINDINGS: Right lower extremity: Thrombus noted in common femoral extending into the proximal femoral vein, chang suring approximately 8 cm in length. Distally the vessels appear patent. The profundus femoral vein and greater saphenous vein are also patent. Left lower extremity: Deep venous thrombosis is noted from the common femoral vein extending through the calf veins, involving the entire length of the leg. The saphenous vein also shows thrombus. IMPRESSION: Right: Deep venous thrombosis in the common femoral and proximal femoral veins. Left: Deep venous thrombosis from the common femoral vein through the calf veins. DATA REPOSITORY:
[2023-06-25] MEDS: POTASSIUM CHLORIDE 20 MEQ/100 ML BAG 50 MEQ IVPB (00:29)
[2023-06-25 00:43] LABS: PTT Activated 60.3 sec (23.6-32.8)
--- NOTE | 2023-06-25 08:31 | INITIAL_ITS ---
Date of service: 06/25/23 Time of Service: 08:31 Care Management Initial Assmt Initial Assessment REASON FOR HOSPITALIZATION:: Anemia PREVIOUS FUNCTIONAL STATUS/SOCIAL/FAMILY SUPPORTS:: Kita lives in a single family home in [place] [place] [facility] with her [place]. They have no children. They do have a close friend named Puja Cid who is like family and is very helpful and supportive. Kita used to be employed at [employer] but has been unable to work recently. She requires assistance with all of her ADLs which is provided by her and Puja. CURRENT FUNCTIONAL STATUS:: Kita was sitting up in bed when CM met with her. She was very pleasant and agreeable to conversation. Kita informed CM that she has not been doing well at home. She has been getting weaker and now requires assistance with bathing, dressing and transferring or ambulating with her walker. She acknowledged that she knows she needs more help. When asked if she would be agreeable to short term rehab, she stated that she would be but was disappointed to learn that [facility] is closed to admissions at this time. She is concerned about location as she and her have limited transportation options. ADVANCE DIRECTIVES:: none on file Has patient been provided with info about the portal/API?: Yes Did the patient sign up for the portal?: Yes CODE STATUS:: DNR/DNI INSURANCE COVERAGE / FINANCIAL ISSUES:: [facility] Medicare replacement CURRENT HOME/COMMUNITY SERVICES/EQUIPMENT:: walker PRIMARY CARE PHYSICIAN:: Nitish Mccoy POTENTIAL DISCHARGE NEEDS:: follow up with PCP and plan of care PATIENT/FAMILY EDUCATION NEEDS:: review of discharge instructions, limitations, activity, follow up plan, discuss Ask me Three. ANTICIPATED BARRIERS TO DISCHARGE:: finding placement for short term rehab. TRANSPORTATION:: via private vehicle with PLAN:: Anticipate Kita will be discharged home with no new services. She will follow up with community providers and plan of care and transport with family. CM will follow and support discharge planning needs. PFSH All Active Problems (Updated 06/24/23 @ 21:21 by Jeremy Freire MD) Community acquired pneumonia of right lower lobe of lung (Acute) DNR (do not resuscitate) (Acute) Protein malnutrition (Acute) Chronic distal aortic occlusion (Acute) Anemia (Chronic) Stage 4 lung cancer (Acute) Hypokalemia (Acute) Closed fracture of left pelvis (Acute) Lumbago (Acute) Social History Smoking/Tobacco Use Status: Former Tobacco Use Quit Date: 10/11/22 Smoking risk assessment performed?: Yes Alcohol Intake: never Drug use: Never Substance use type: does not use Housing: house Do you feel safe at home: Yes Do you feel safe in your relationship?: Yes Additional Social history: Lives with
[2023-06-25 08:33] LABS: Abs Immature Grans 0.13 10^3/uL (0.0-0.06); Absolute Basophil Count 0.01 10^3/uL (0.0-0.2); Absolute Eosinophil Count 0.06 10^3/uL (0.0-0.7); Absolute Lymphocyte Count 1.11 10^3/uL (1.2-3.4); Absolute Neutrophil Count 5.36 10^3/uL (1.2-6.7); Basophils % 0.1; Eosinophils % 0.8; HCT 28.1 % (36.0-46.0); HGB 9.7 g/dL (11.2-15.7); Immature Grans % 1.8; Lymphocytes % 15.7; MCHC 34.5 % (32.0-36.0); MCV 90 fL (80-95); MPV 10.6 fL (8.0-11.0); Monocytes % 5.7; Neutrophils % 75.9; Nucleated RBC 0.3 % (0.0-0.3); RBC 3.13 10^6/uL (3.93-5.22); RDW 22.5 % (11.7-14.6); RDW-SD 66.4 fL; WBC 7.07 10^3/uL (4.4-10.8)
[2023-06-25 08:40] LABS: PTT Activated 45.9 sec (23.6-32.8)
[2023-06-25] MEDS: Normal Saline Flush 10 ML SYR IVP ×2 (08:52→22:02)
[2023-06-25] MEDS: Protein Nutritional Supplement 16 GM 1 OUNCE PACKET PO ×3 (08:52→20:59)
[2023-06-25 09:13] LABS: BUN 8 mg/dL (7-18); CREATININE 0.8 mg/dL (0.55-1.02); Calcium 7.4 mg/dL (8.5-10.1); Chloride 107 mmol/L (98-107); Estimated GFR 79.22 (mL/min/1.73m2); Folate 2.8 ng/mL (8.6-20.0); Glucose 94 mg/dL (74-106); Magnesium 1.8 mg/dL (1.8-2.4); Potassium 3.5 mmol/L (3.5-5.1); Sodium 142 mmol/L (136-145); Vitamin B12 914 pg/mL (193-986)
[2023-06-25 09:19] LABS: Platelet Count 65 10^3/uL (130-400)
[2023-06-25 09:20] LABS: Diff Comment Diff Reviewed
[2023-06-25 09:21] LABS: Anisocytosis 2+; Howell-Jolly Bodies Present; Polychromasia Present
[2023-06-25] MEDS: Pantoprazole 40 MG VIAL IVP ×2 (10:36→22:01)
--- NOTE | 2023-06-25 12:58 | PT.INIE ---
PT Notes Visit Reasons: Anemia,General Weakness,Severe Hypokalemia Inpatient Physical Therapy Evaluation Date: 06/25/23 Referring Doctor: Dr. Rosas PT Orders: PT CONSULT: limited ability to ambulate Precautions: fall, standard Patient Profile/Admitting Diagnosis: Patient admitted 06/24/23 for management of anemia in the presence of stage 4 lung cancer. PT referral received for assessment of mobility. PMHX: PFSH All Active Problems (Updated 06/24/23 @ 21:21 by Jeremy Freire MD) Community acquired pneumonia of right lower lobe of lung (Acute) DNR (do not resuscitate) (Acute) Protein malnutrition (Acute) Chronic distal aortic occlusion (Acute) Anemia (Chronic) Stage 4 lung cancer (Acute) Hypokalemia (Acute) Closed fracture of left pelvis (Acute) Lumbago (Acute) Social History/Home Situation: Patient resides with her , who suffers from COPD and just recently returned home from a hospital stay. She states that she normally is able to walk from her chair to the bathroom with FWW, but lately has not been able to make it due to continence issues. She's now been transferring chair to commode only. Equipment Owned/DME: FWW, commode Subjective: Kita states that she can't get warm and that she is in pain all over. Additionally states that she is extremely fatigued. She states that she does not want her blankets removed and is unable to walk. With coaxing, she's agreeable to sitting at edge of bed, but no more. Objective: General Observation: Resting in bed with several blankets. IV in RUE. Telemetry in place. Mental Status: Alert and oriented throughout session. Vague historian. Pain: diffuse pain ROM: Right Upper Extremity: Shoulder flexion to 60*. Elbow and wrist motion WFL. Left Upper Extremity: Shoulder flexion to 60*. Elbow and wrist motion WFL. Right Lower Extremity: Grossly WFL Left Lower Extremity: Grossly WFL Strength: Patient unable to tolerate pressure to limbs during transfer or strength assessment. All strength assessed functionally Right Upper Extremity: shoulder flexion 3-/5. Biceps 3/5. Left Upper Extremity: Shoulder flexion 3-/5. Biceps 3/5. Right Lower Extremity: Hip flexion 3/5. Quads 3/5. Ankle DF 3/5. Left Lower Extremity: Hip flexion 3/5. Quads 3/5. Ankle DF 3/5. Sensation: hypersensitivity noted throughout limbs Bed Mobility/Transfers: supine-sit: min A with HOB elevated to 45* supine-sidelying: supervision sit-supine: min A to LEs sit-stand: unable Gait: unable Balance: Static Sitting: fair Dynamic Sitting: fair Static Standing: unable Dynamic Standing: unable Special Tests: Mobility Limitations Standardized Measure [facility] AM-PAC 6 clicks Basic Mobility Inpatient Short Form: Raw Score: 11 CMS Score: 73% Informed Consent/Education: Patient instructed in purpose of PT consult and plan of care. Treatment: Initial Evaluation([id number]) Assessment: Patient is a 72 year old female referred to physical therapy services for mobility assessment during acute care stay in the ICU for management of anemia. Patient presents with severe mobility impairments and fatigue, with limited ability to participate in PT evaluation due to pain and fatigue. She is adamant that she will not stand or walk, but is agreeable to trying later today; a time was set for 2:30 to re-attempt. Patient's baseline mobility sounds to be quite limited, and her /caregiver is struggling with health issues of his own. Given her presentation today, anticipate need for SNF stay prior to being able to safely return home. She currently demonstrates the following impairment level findings: 1. Decreased UE strength 2. Decreased LE strength 3. Decreased activity tolerance 4. Decreased sitting balance 5. unable to ambulate Impairments are contributing to the following functional limitations: 1. unable to transfer sit-stand 2. unable to ambulate 3. unable to independently perform ADLs and self-care (toileting) 4. high fall risk Patient is assessed as Moderate 81020 complexity based on the following: History: as above. Complicating factors include poor baseline mobility, stage 4 lung cancer, and recent pelvic fx. Examination: functional limitations as above Presentation: evolving Decision Making: moderate complexity Goals: Goals X1 week 1. Supine-Sit : SBA 2. Sit-Supine : SBA 3. Sit-Stand : SBA 4. Stand-Sit : SBA 5. Bed-Chair : SBA with FWW 6. Chair-Bed : SBA with FWW 7. Gait : CGA x 30' with FWW Plan of Care/Treatment Plan: 1-2x/day, 7 days/week x 1 week. Plan of care has been reviewed with the SUBMERSIBLE PILOT providing the service under Physical Therapy direction. Initiate Physical Therapy intervention for strengthening, bed mobility, transfers, gait, stairs, balance training, use of assistive device. DISCHARGE RECOMMENDATIONS: SNF for continued rehabilitation TREATMENT CODE/TIME: 12:40-12:55 ([id number]) Yuli Alvarez, PT, DPT [facility]
[2023-06-25] MEDS: DOXYCYCLINE 100 MG in Normal Saline 100 ML IVPB (13:26)
[2023-06-25] MEDS: HYDROmorphone 4 MG TAB PO (14:04)
[2023-06-25] MEDS: Heparin in 0.45% NaCl 25,000 UNIT/250 ML BAG 10.5 UNIT IV (14:30)
--- NOTE | 2023-06-25 14:56 | PT.INTREAT ---
PT Notes Visit Reasons: Anemia,General Weakness,Severe Hypokalemia Inpatient Physical Therapy Treatment Note [facility] Date: 06/25/23 PRECAUTIONS:fall, standard SUBJECTIVE: Kita states that she is willing to stand at the edge of the bed, but doesn't think she can walk. Her employer is here to visit her at initiation of session, and she states multiple times how meaningful that has been. OBJECTIVE: ? Therapeutic Activities ([id number]): Direct one-on-one instruction in dynamic activities to improve functional performance. ? BED MOBILITY/TRANSFERS? Rolling L/R: supine-right, SBA Supine-sit: min A x 2? Sit-supine: mod A x 1 ? Sit-stand: initially min A x 2 from EOB. Later requires mod A x 2 from commode (lower seat)? Stand-sit: min A ? Bed-Chair: stand step with FWW, CGA x1 and SBA x1 for management of lines and equipment ? Chair-bed: stand step with FWW, CGAx1 and SBA x1 for management of lines and equipment Provided skilled cues and instruction on performance and technique throughout. ?Able to transfer to commode and back to bed, with max encouragement and cues throughout. Performs sit-stand x 6, cues for hand placement Static standing x 30 seconds for max A self-care after toileting ? ASSESSMENT:? Improved tolerance to transfers and good tolerance to initiation of ambulation. Very fatigued after completion, but positive about progress. PLAN: Continue progressing as tolerated. TREATMENT CODE/TIME: [id number] ([id number]) Yuli Alvarez, PT, DPT [facility]
[2023-06-25 16:19] LABS: PTT Activated 119.5 sec (23.6-32.8)
--- NOTE | 2023-06-25 16:20 | PGE_ITS ---
Date of Service Date of service: 06/25/23 Time of Service: 16:21 Assessment and Plan Assessment and plan (1) Anemia: Status: Chronic Assessment and plan: -patient w/ progressive anemia but no signs or symptoms of GI bleeding, i.e. no melena or hematochezia and stool was negative for occult blood in the E.D. -Has received a total of 2 units of PRBCs -Continue GI protection w/ protonix since we do not know the source of her anemia (presumably cancer related) and she is on heparin alleged bilateral iliofemoral DVT (see below) -Hb 9.7 this AM, will f/u again tomorrow Qualifiers: Anemia type: unspecified type Qualified Code(s): D64.9 - Anemia, u nspecified (2) Deep vein thrombosis (DVT) of iliofemoral vein: Status: Suspected Assessment and plan: -Reviewed CTA with on-call radiologist who recommended bilateral lower extremity Doppler -After reviewing CTA and Doppler, appears patient does have bilateral DVTs -will continue heparin drip for an additional 24 hours prior to transitioning to oral anticoagulant -Patient does not want transfer and does not want a procedure. Qualifiers: Laterality: bilateral Qualified Code(s): I82.423 - Acute embolism and thrombosis of iliac vein, bilateral (3) Hypokalemia: Status: Acute Assessment and plan: -need parenteral and enteral replacemen -f/u AM BMP (4) Community acquired pneumonia of right lower lobe of lung: Status: Acute Assessment and plan: -per CT she has bilateral pleural effusions and a right lower lobe infiltrate; unclear as to whether this is pneumonia vs atelectasis or tumor. -Clinically she is not having fever but has chronic chills, no sputum produc tion; she has chronic dyspnea, -cover empirically w/ Ceftriaxone and doxycycline. -f/u urine Strep and Legionella antigen and procalcitonin. (5) Stage 4 lung cancer: Status: Acute Assessment and plan: -reportedly stable, last chemotherapy was 3 weeks ago Qualifiers: Laterality: unspecified laterality Qualified Code(s): C34.90 - Malignant neoplasm of unspecified part of unspecified bronchus or lung (6) Protein malnutrition: Status: Acute Assessment and plan: -will begin on protein supplements, ask for nutrition consult (7) Chronic distal aortic occlusion: Status: Acute Assessment and plan: -her distal aortic occlusion has been known at [facility] since November 2020 (see aorta w/ runoff study). She has very poor circulation in her legs/feet, no palpable (8) DNR (do not resuscitate): Status: Acute Assessment and plan: -per patient she is DNR/DNI, she does not have COLST form, I will have Palliative care meet w/ her and assist in COLST Subjective Subjective Interval history since last seen: Patient states that she is feeling better today and is looking forward to working with PT. Exam Narrative Exam Narrative: Frail appearing older female laying in bed in no acute distress, AOx4, heart RRR, lungs CTAB, abdomen soft, nontender, nondistended Objective Last Vital Signs Temp 98.6 F 06/25/23 12:10 Pulse 95 H 06/25/23 12:10 Resp 19 06/25/23 12:10 BP 113/85 06/25/23 12:10 Pulse Ox 100 06/25/23 00:51 Laboratory Results - last 24 hr 06/24/23 06/24/23 06/24/23 14:12 17:00 18:15 WBC RBC Hgb Hct MCV MCH MCHC RDW Plt Count MPV Immature Gran % Neutrophils % Lymphocytes % Monocytes % Eosinophils % Basophils % Nucleated RBC % Absolute Neutrophils Absolute Lymphocytes Absolute Monocytes Absolute Eosinophils Absolute Basophils Polychromasia Anisocytosis [place] Bodies PT 12.8 H INR 1.3 H APTT 25.5 Sodium Potassium Chloride Carbon Dioxide Anion Gap BUN Creatinine Est GFR (CKD-EPI 2020) Glucose Calcium Magnesium Vitamin B12 Folate Procalcitonin Urine Color Yellow Urine Clarity Clear Urine pH 7.0 Ur Specific [place] 1.010 Urine Protein Negative Urine Ketones Negative Urine Blood Negative Urine Nitrite Negative Urine Bilirubin Negative Urine Urobilinogen 0.2 Ur Leukocyte Esterase Negative Urine Glucose Negative COVID-19 Source Nasal/Nares SARS-CoV-2 (PCR) Negative Add-On Test Request Patient ABO/Rh A Positive Antibody Screen NEGATIVE Crossmatch See Detail 06/24/23 06/24/23 06/25/23 20:07 21:03 00:25 WBC RBC Hgb 7.7 L Hct 23.0 L MCV MCH MCHC RDW Plt Count MPV Immature Gran % Neutrophils % Lymphocytes % Monocytes % Eosinophils % Basophils % Nucleated RBC % Absolute Neutrophils Absolute Lymphocytes Absolute Monocytes Absolute Eosinophils Absolute Basophils Polychromasia Anisocytosis [place] Bodies PT INR APTT 60.3 H Sodium Potassium 2.8 L* Chloride Carbon Dioxide Anion Gap BUN Creatinine Est GFR (CKD-EPI 2020) Glucose Calcium Magnesium Vitamin B12 Folate Procalcitonin 0.2 Urine Color Urine Clarity Urine pH Ur Specific [place] Urine Protein Urine Ketones Urine Blood Urine Nitrite Urine Bilirubin Urine Urobilinogen Ur Leukocyte Esterase Urine Glucose COVID-19 Source SARS-CoV-2 (PCR) Add-On Test Request DONE Patient ABO/Rh Antibody Screen Crossmatch 06/25/23 06/25/23 06/25/23 08:00 08:00 08:00 WBC 7.07 RBC 3.13 L Hgb 9.7 L D Hct 28.1 L MCV 90 D MCH 31.0 MCHC 34.5 RDW 22.5 H Plt Count 65 L MPV 10.6 Immature Gran % 1.8 Neutrophils % 75.9 Lymphocytes % 15.7 Monocytes % 5.7 Eosinophils % 0.8 Basophils % 0.1 Nucleated RBC % 0.3 Absolute Neutrophils 5.36 Absolute Lymphocytes 1.11 L Absolute Monocytes 0.40 Absolute Eosinophils 0.06 Absolute Basophils 0.01 Polychromasia Present Anisocytosis 2+ [place] Bodies Present PT INR APTT 45.9 H Sodium Cancelled 142 Potassium Cancelled 3.5 Chloride Cancelled Carbon Dioxide Anion Gap BUN Creatinine Est GFR (CKD-EPI 2020) Glucose Calcium Magnesium Vitamin B12 Folate Procalcitonin Urine Color Urine Clarity Urine pH Ur Specific [place] Urine Protein Urine Ketones Urine Blood Urine Nitrite Urine Bilirubin Urine Urobilinogen Ur Leukocyte Esterase Urine Glucose COVID-19 Source SARS-CoV-2 (PCR) Add-On Test Request Patient ABO/Rh Antibody Screen Crossmatch 06/25/23 06/25/23 06/25/23 08:00 08:00 08:00 WBC RBC Hgb Hct MCV MCH MCHC RDW Plt Count MPV Immature Gran % Neutrophils % Lymphocytes % Monocytes % Eosinophils % Basophils % Nucleated RBC % Absolute Neutrophils Absolute Lymphocytes Absolute Monocytes Absolute Eosinophils Absolute Basophils Polychromasia Anisocytosis [place] Bodies PT INR APTT Sodium Potassium Chloride 107 Carbon Dioxide Cancelled 28.0 Anion Gap Cancelled 7.0 BUN Cancelled Creatinine Est GFR (CKD-EPI 2020) Glucose Calcium Magnesium Vitamin B12 Folate Procalcitonin Urine Color Urine Clarity Urine pH Ur Specific [place] Urine Protein Urine Ketones Urine Blood Urine Nitrite Urine Bilirubin Urine Urobilinogen Ur Leukocyte Esterase Urine Glucose COVID-19 Source SARS-CoV-2 (PCR) Add-On Test Request Patient ABO/Rh Antibody Screen Crossmatch 06/25/23 06/25/23 06/25/23 08:00 08:00 08:00 WBC RBC Hgb Hct MCV MCH MCHC RDW Plt Count MPV Immature Gran % Neutrophils % Lymphocytes % Monocytes % Eosinophils % Basophils % Nucleated RBC % Absolute Neutrophils Absolute Lymphocytes Absolute Monocytes Absolute Eosinophils Absolute Basophils Polychromasia Anisocytosis [place] Bodies PT INR APTT Sodium Potassium Chloride Carbon Dioxide Anion Gap BUN 8 Creatinine Cancelled 0.8 Est GFR (CKD-EPI 2020) Cancelled 79.22 Glucose Cancelled Calcium Magnesium Vitamin B12 Folate Procalcitonin Urine Color Urine Clarity Urine pH Ur Specific [place] Urine Protein Urine Ketones Urine Blood Urine Nitrite Urine Bilirubin Urine Urobilinogen Ur Leukocyte Esterase Urine Glucose COVID-19 Source SARS-CoV-2 (PCR) Add-On Test Request Patient ABO/Rh Antibody Screen Crossmatch 06/25/23 06/25/23 06/25/23 08:00 08:00 08:00 WBC RBC Hgb Hct MCV MCH MCHC RDW Plt Count MPV Immature Gran % Neutrophils % Lymphocytes % Monocytes % Eosinophils % Basophils % Nucleated RBC % Absolute Neutrophils Absolute Lymphocytes Absolute Monocytes Absolute Eosinophils Absolute Basophils Polychromasia Anisocytosis [place] Bodies PT INR APTT Sodium Potassium Chloride Carbon Dioxide Anion Gap BUN Creatinine Est GFR (CKD-EPI 2020) Glucose 94 Calcium Cancelled 7.4 L Magnesium Cancelled 1.8 Vitamin B12 914 Folate 2.8 L Procalcitonin Urine Color Urine Clarity Urine pH Ur Specific [place] Urine Protein Urine Ketones Urine Blood Urine Nitrite Urine Bilirubin Urine Urobilinogen Ur Leukocyte Esterase Urine Glucose COVID-19 Source SARS-CoV-2 (PCR) Add-On Test Request Patient ABO/Rh Antibody Screen Crossmatch 06/25/23 15:30 WBC RBC Hgb Hct MCV MCH MCHC RDW Plt Count MPV Immature Gran % Neutrophils % Lymphocytes % Monocytes % Eosinophils % Basophils % Nucleated RBC % Absolute Neutrophils Absolute Lymphocytes Absolute Monocytes Absolute Eosinophils Absolute Basophils Polychromasia Anisocytosis [place] Bodies PT INR APTT 119.5 H* Sodium Potassium Chloride Carbon Dioxide Anion Gap BUN Creatinine Est GFR (CKD-EPI 2020) Glucose Calcium Magnesium Vitamin B12 Folate Procalcitonin Urine Color Urine Clarity Urine pH Ur Specific [place] Urine Protein Urine Ketones Urine Blood Urine Nitrite Urine Bilirubin Urine Urobilinogen Ur Leukocyte Esterase Urine Glucose COVID-19 Source SARS-CoV-2 (PCR) Add-On Test Request Patient ABO/Rh Antibody Screen Crossmatch Time Spent with Patient Time Spent with Patient: >50 minutes Time was spent: preparing to see the patient(eg.review tests), obtaining and/or reviewing separately otained hiistory, ordering medications,tests, procedures, referring, communicating with other health inpatient care manager rn, indepentently interpreting results, counseling the patient and care coordination
[2023-06-25] MEDS: Atorvastatin 20 MG TAB 40 MG PO (20:59)
[2023-06-25] MEDS: cefTRIAXone 2 GM/50 ML BAG IVPB (22:04)
[2023-06-25 23:48] LABS: PTT Activated 78.7 sec (23.6-32.8)
[2023-06-26] MEDS: DOXYCYCLINE 100 MG in Normal Saline 100 ML IVPB ×2 (00:34→11:06)
[2023-06-26] MEDS: Acetaminophen 500 MG TAB 1000 MG PO ×3 (00:42→21:01)
[2023-06-26 04:06] VITALS: BP 97/65; PULSE 90; RESP 18; TEMP 36.4; O2SAT 97
[2023-06-26 06:12] LABS: HCT 24.9 % (36.0-46.0); MCH 31.8 pg (27.0-33.0); MCHC 34.9 % (32.0-36.0); MCV 91 fL (80-95); MPV 10.9 fL (8.0-11.0); RBC 2.74 10^6/uL (3.93-5.22); RDW-SD 67.4 fL; WBC 5.71 10^3/uL (4.4-10.8)
[2023-06-26 06:25] LABS: PTT Activated 77.5 sec (23.6-32.8)
[2023-06-26 06:26] LABS: BUN 12 mg/dL (7-18); CREATININE 0.9 mg/dL (0.55-1.02); Calcium 7.6 mg/dL (8.5-10.1); Chloride 108 mmol/L (98-107); Estimated GFR 68.77 (mL/min/1.73m2); Glucose 100 mg/dL (74-106); Sodium 143 mmol/L (136-145)
[2023-06-26 06:27] LABS: Potassium 2.9 mmol/L (3.5-5.1)
[2023-06-26 07:01] LABS: HGB 8.7 g/dL (11.2-15.7)
[2023-06-26 07:02] LABS: Platelet Count 64 10^3/uL (130-400); RDW 22.7 % (11.7-14.6)
[2023-06-26 07:29] VITALS: BP 105/70; PULSE 77; RESP 18; TEMP 36.8; O2SAT 98
[2023-06-26] MEDS: Potassium Chloride 20 MEQ TABCR PO ×2 (08:14→09:19)
[2023-06-26] MEDS: Protein Nutritional Supplement 16 GM 1 OUNCE PACKET PO ×3 (08:15→20:55)
[2023-06-26] MEDS: hydrOXYzine HCL 25 MG TAB PO (08:32)
[2023-06-26] MEDS: Normal Saline Flush 10 ML SYR IVP ×2 (09:19→20:55)
[2023-06-26] MEDS: HYDROmorphone 4 MG TAB PO ×3 (09:19→21:00)
[2023-06-26] MEDS: Pantoprazole 40 MG VIAL IVP ×2 (09:19→20:56)
[2023-06-26 09:50] LABS: Prealbumin 6 mg/dL (20-40)
[2023-06-26] MEDS: Apixaban 5 MG TAB 10 MG PO ×2 (10:09→20:56)
--- NOTE | 2023-06-26 10:28 | PDOC.CMPRO ---
Date of service: 06/26/23 Time of Service: 10:28 Care Management Progress Note Progress Note Text Progress Note Text: S/O:Kita was lying in bed dozing when CM met with her. She informed CM that she is just tired and wants too sleep. CM deferred further conversation at that time. Kita's good friend Puja Cid, came to visit today and had hoped to be present for a Palliative Care consultation however she had to leave before the Palliative provider arrived. Dr. Olsen did meet with Kita alone and a new COLST form was signed. A: Kita is a 72 year old woman admitted on 06/24/23 with anemia, hypokalemia and stage IV lung cancer P:Anticipate Kita will be discharged home with no new services. She will follow up with community providers and plan of care and transport with family. CM will follow and support discharge planning needs.
[2023-06-26 12:35] VITALS: BP 92/55; PULSE 87; RESP 16; TEMP 37.6; O2SAT 98
--- NOTE | 2023-06-26 13:35 | W.PALLCONSUL ---
Date of service: 06/26/23 Time of Service: 13:35 History of Present Illness Narrative: Ms. Lemus is a 72 yo woman from [facility] who has stage IV lung (mets to lymph nodes and 2 small brain mets) cancer and peripheral vascular disease (history of distal aortic occlusion) who was admitted to [facility] 2 days ago with increasing weakness and reduced oral intake who was found to have profound anemia/pancytopenia (acute worsening of chronic anemia, hemoglobin 6.0 upon admission), bilateral pleural effusions with right lower lobe infiltrate, and bilateral DVTs. Of note, her , her primary caregiver, was hospitalized with pneumonia several days prior to admission. This is her first visit with palliative care team. We are being consulted to help with goals of care discussion and advance care planning. Reports she is so very tired today due to lack of sleep, being woken up fairly often. But rallies and is able to meet with me for an hour. I am also able to talk with her friend Puja Cid, who is able to give me important additional history. Non-small cell lung cancer: Presented early-stage December 2020. Treated with stereotactic radiation. Recurrence June 2022 with positive lymph node and 2's brain metastases. Started palliative chemotherapy October 2022. Carboplatin/pemetrexed/pembrolizumab. Repeat scans April 2023 showed stable disease ... Has responded to treatment and now on maintenance therapy.... Ongoing issues with nausea and hypokalemia, weight loss.. March MRI shows stable metastasis right frontal lobe. Last chemotherapy was 06/08/2023. If you look back at the last few months, have your gotten weaker or stronger? -Not able to walk as far -Weight about the same over this time. -Chemo sometimes makes her vomit for a few days and then gets better. -Friend Puja on the phone says that she is definitely getting weaker, losing weight. Naheed thinks she is no longer able to take care of herself anymore . She cannot be more specific. -Friend Puja also reports that told her that she has occasional dementia , gets confused on and off. -Patient reports when she awoke early this morning at 5 AM she did not know where she was or why she was here. She got panicked and called Puja at 5 AM. Puja reports that she answered the phone, but Kita refused to believe that it was actually Puja talking to her on the phone. She gradually cleared up. Patient says she was confused this morning but is feeling much better now. Pain: Chronic back pain predates cancer by about a year: on chronic hydromorphone 4 mg QID. Patient cannot tell me what caused it and I did not get additional history. No known reported bone metastases. She reports that the lung cancer does not give her any pain. Anxiety: Since becoming ill. Getting hydroxyzine. Never prescribed any SSRI or SNRI. She worries a lot. Uses hydroxyzine 3-4 times a day. Care Team: Primary Care physician: Gamal Mccoy Oncology: [facility]: Dr. Fairbanks, Social HX: -Lives in [facility] with [place]. They moved up here in 2004 because they like to [place] and moved to be closer to friends. Those friends then moved out of state. Closest relatives are sister and [id number] on [place] (they are very good friends that they lives a very far away). They no longer able to travel up here. - has Bad COPD, uses O2 PRN, does not drive. Kita still drives, only short distances and when she is feeling very good. -The couple have no children and no other family members live close. -Friend Puja Cid is helpful, the go to person, drives her and her to all their appts, does a lot of the shopping for them, helps them navigate legal matters. -Used to work at [employer]. Hobbies: Used to read and garden and do plants, but not really in a year. Someone planted a garden for them this summer. Additional history from friend Puja: She reports that she helps Kita and her is much as she can. She has never been in their house. She reports that they have a dog which cannot be around other people. She does not think anyone else has ever been in their house including home health. She does not think they have any other friends that help them or would be available to help them in the future. She is concerned that both Kita and her have not been taking very good care of themselves . She is not sure they are eating well, taking showers. She suspects that the house is not in good shape and appliances may not be working but does appear to have electricity. She expresses concern over what is going to happen as jasmyn lung cancer progresses and she gets sicker. She does not see her being able to stay at home without significant additional help. Other Services: No [facility], [facility], [facility] services, no home health. No [facility]. -No help with housework. Impression of currents health status: Not going well, it sucks. I am not taking care of myself. What bothers you the most: Having to take care of everything, I know we can't take care of ourselves; those days are gone. What worries you the most: Paying bills (oil, no heat in house today, she had to call the [employer]). Goals: Hoping to get home. Hoping to take care of things at home. Current information preferences: Function: Ambulation: Independent until this admission (no aids, cane or walker). Reports that she walked with PT today, used a walker, a little wobbly. ADLs: Independent iADLs: does cooking, Pt pays the bills, both do the cleaning (getting really hard for both of them). Hearing: Reports reduced hearing from chemo (does not have hearing aids). Hearing seemed pretty good today during my consult. Vision: Blurry (maybe from the chemo too) Cognition: Pretty good Driving: Drives very locally only, does not drive. Palliative Performance Scale % Ambulation Activity and Evidence of Disease Self Care Intake Level of Consciousness 100 Full Normal activity, no evidence of disease Full Normal Full 90 Full Normal activity, some evidence of disease Full Normal Full 80 Full Normal activity with effort, some evidence of disease Full Normal or reduced Full 70 Reduced Unable to do normal work, some evidence of disease Full Normal or reduced Full 60 Reduced Unable to do hobby or some housework, significant disease Occasional assist necessary Normal or reduced Full or confusion 50 Mainly sit/lie Unable to do any work, extensive disease Considerable assistance required Normal or reduced Full or confusion 40 Mainly in bed Unable to do any work, extensive disease Mainly assistance Normal or reduced Full, drowsy, or confusion 30 Totally bed bound Unable to do any work, extensive disease Total care Reduced Full, drowsy, or confusion 20 Totally bed bound Unable to do any work, extensive disease Total care Minimal sips Full, drowsy, or confusion 10 Totally bed bound Unable to do any work, extensive disease Total care Mouth care only Drowsy or coma 0 - - - - Patient Score: By patient's report, 60 Spiritual history: No formal sabianism activity. Sometimes prays. Palliative review of systems: Pain:None (reports that back pain is well controlled by hydromorphone) Dyspnea: She feels a little short of breath, she thinks this is from anxiety. GI symptoms: She gets nausea during and 2 to 3 days after chemo, then it gets better. Its been better the last few days. Appetite:Max lifetime weight 120s (93# today), reports that she probably had anorexia in her 20s, she was always thin. Lost her taste with chemo. Not hungry and food does not taste good. Depression: Feeling depressed since she was dxed with cancer, Anxiety: None Emotional Distress: Spiritual/Existential Distress: Some Labs: 06/26/2023 Cr: 0.9 Liver panel: Minimal elevation AST, no elevation ALT Albumin: 1.8 at admission. Down from 3.0 over the summer CBC: Hemoglobin 8.7 today (range 6.0?9.7 during admission; hemoglobin remains under 10 since mid April) Advanced Care Planning: Advanced Directive: Allergies social service coordinator notes from [facility] state she does not have an AD. (pt is not sure) Health Care Agent: [place] Lemus, alternate healthcare agent: Puja Cid. Healthcare agent form was completed today and signed by patient reflecting this. COLST: Patient has said to several other providers that she is DNI DNR. See [place] completed today: DNI/DNR: Continues to want to be hospitalized as needed, IV antibiotics and IV fluids. Limitations: Assessment and Plan Assessment and plan (1) Palliative care patient: Status: Acute Assessment and plan: Ms. Lemus is a 72-year-old woman with non-small cell lung cancer with mets to lymph node and brain who has been receiving palliative chemo/immunotherapy at [facility] since October. Patient says that the cancer is controlled and it is working , but both she and her friend said they that she is getting weaker and having more difficulty taking care of herself and her .Over the last 6 weeks she has developed anemia which got quite profound over the last 2 weeks and was found to have bilateral DVT, new pleural effusions and possible pneumonia. and patient and friend all report some relatively new episodes of confusion, and she is overdue for follow-up head imaging. Goals of care discussion today. Kita was able to rally and gave some very thoughtful answers. She would like to resume chemotherapy when she is recovered from this hospitalization. However she also expresses that at some point the disease will progress and chemotherapy will no longer be helpful. She does not think that time is right now. Anxiety appears to be significant issue for her, especially around increasing difficulties caring for her , who appears to be historically the frailer partner (unable to drive, oxygen dependent, etc.). Social situation also seems tenuous and will get more so as her disease progresses. I did review some brief notes from [facility] housekeeper/custodian/laundry worker. Kita and her probably need extra support in their home at this time, but unclear if they are willing to accept it. They will have additional discussions with case management during hospitalization and continue discussions with [facility] chronic managed care manager after discharge. Advance care planning: Patient clearly wants to be DNR/DNI. However she wants to resume chemotherapy after hospital discharge. Today: -COLST form completed stating DNR/DNI, but continue to transfer/admit to hospital, evaluate and treat, use antibiotics and IV hydration. -Healthcare agent form completed listing [place] as primary HCA and friend Puja Cid as alternate. -We discussed goals of care, regarding at what point it was clear that chemotherapy was not improving either the quality or quantity of her life. She does not feel she is there at this time. She would like to resume chemotherapy. -Discussion regarding hospice benefit today. Patient says she would be very interested if and when she decides to stop chemo/immunotherapy. Patient and relies very heavily on neighbor Puja Cid. No other family members or friends are local. Patient feels that a moved to be closer to family in [place] would be overwhelming and not possible at this time. Patient agrees that additional help would be very useful. They currently are receiving no services ([facility], [facility], [facility], home health). Case management will discuss with them during her hospitalization here. Hopefully she will accept either subacute rehab stay after discharge or home health referral. Consider [facility] referral; given that both members of the couple reportedly need increasing support. Anxiety: Patient currently receiving hydroxyzine as an outpatient which continues as inpatient for anxiety. Anxiety started when she was diagnosed with lung cancer. Although lifelong history of mild anxiety, always manageable until lung cancer diagnosis. Recommend: -Starting citalopram 10 mg or mirtazapine 7.5 mg at bedtime to help with both anxiety (may have desirable side effect of increasing appetite) -Follow-up with PCP or palliative care to monitor and adjust as needed. -Consider ongoing counseling through primary care office to process feelings around illness, guilt over abandoning should she pass away, etc. Plan is for palliative care team to follow-up with patient in 3 to 4 weeks with office or home visit or NCC visit. We will ask Kita if she would be willing to have Puja present during that visit. (2) Advanced care planning/counseling discussion: Status: Acute Assessment and plan: 16 to 30 minutes spent today on Advance Care Planning. Patient and family participated voluntarily. Advance care planning may include (not limited to) explanation and discussion of advance directives, choosing and appointing healthcare agents, alternatives to various ACP tools, discussion of (and if indicated, completion of) COLST form, discussion of patient's values and overall goals for treatment, palliative and disease directive care options, ways to avoid hospital readmission including hospice discussions, care preferences should the patient's several other adverse health events.See today's palliative care note for additional information. (3) Non-small cell lung cancer metastatic to lymph nodes of multiple sites: Status: Acute (4) Non-small cell lung cancer metastatic to brain: Status: Acute (5) Deep vein thrombosis (DVT) of iliofemoral vein: Status: Suspected Qualifiers: Laterality: bilateral Qualified Code(s): I82.423 - Acute embolism and thrombosis of iliac vein, bilateral (6) Community acquired pneumonia of right lower lobe of lung: Status: Acute (7) Chronic pain: Status: Chronic PFSH All Active Problems (Updated 06/26/23 @ 15:32 by Amaya Olsen MD) Chronic pain (Chronic) Low Back pain on hydrocodone. Not cancer related. 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 (Acute) Advanced care planning/counseling discussion (Acute) Palliative care patient (Acute) Community acquired pneumonia of right lower lobe of lung (Acute) DNR (do not resuscitate) (Acute) Protein malnutrition (Acute) Chronic distal aortic occlusion (Acute) Anemia (Chronic) Stage 4 lung cancer (Acute) Hypokalemia (Acute) Closed fracture of left pelvis (Acute) Lumbago (Acute) Social History Smoking/Tobacco Use Status: Former Tobacco Use Quit Date: 10/11/22 Smoking risk assessment performed?: Yes Alcohol Intake: never Drug use: Never Substance use type: does not use Housing: house Do you feel safe at home: Yes Do you feel safe in your relationship?: Yes Additional Social history: Lives with Exam Narrative Exam Narrative: Thin, cold appearing elderly woman. Quite pleasant, good eye contact. She appears to have some ecchymosis around her eyelids. She has no cough and no respiratory distress. Speech is fluid. Able to speak in complete sentences. She is alert and oriented today. Moves easily in bed. Mucous membranes are dry and asks several times for me to hand her liquids to drink. Results Last Vital Signs Temp 37.6 C H 06/26/23 12:35 Pulse 87 06/26/23 12:35 Resp 16 06/26/23 12:35 BP 92/55 L 06/26/23 12:35 Pulse Ox 98 06/26/23 12:35 Labs 06/26/23 05:40 06/27/23 06:55 Labs: Laboratory Results - last 24 hr 06/25/23 06/25/23 06/25/23 08:00 15:30 23:25 WBC RBC Hgb Hct MCV MCH MCHC RDW Plt Count MPV APTT 119.5 H* 78.7 H Sodium Potassium Chloride Carbon Dioxide Anion Gap BUN Creatinine Est GFR (CKD-EPI 2020) Glucose Calcium Prealbumin 6 L 06/26/23 05:40 WBC 5.71 RBC 2.74 L Hgb 8.7 L Hct 24.9 L MCV 91 MCH 31.8 MCHC 34.9 RDW 22.7 H Plt Count 64 L MPV 10.9 APTT 77.5 H Sodium 143 Potassium 2.9 L* Chloride 108 H Carbon Dioxide 25.0 Anion Gap 10.0 BUN 12 Creatinine 0.9 Est GFR (CKD-EPI 2020) 68.77 Glucose 100 Calcium 7.6 L Prealbumin
--- NOTE | 2023-06-26 15:16 | W.NUTRFU ---
Date of service: 06/26/23 Time of Service: 13:30
[2023-06-26 15:50] VITALS: BP 91/63; PULSE 95; RESP 25; TEMP 37.6; O2SAT 96
--- NOTE | 2023-06-26 16:00 | PT.INNT ---
Date of service: 06/26/23 Time of Service: 15:55 PT Notes Visit Reasons: Anemia,General Weakness,Severe Hypokalemia Patient reports that she is comfortable for the first time in days and also very tired. Does not wish to move at all, refuses therapy. Agreeable to therapy tomorrow morning. CM aware.
--- NOTE | 2023-06-26 17:36 | W.PM.PROGNOT ---
Assessment and Plan Assessment and plan (1) Anemia: Status: Chronic Assessment and plan: -patient w/ progressive anemia but no signs or symptoms of GI bleeding, i.e. no melena or hematochezia and stool was negative for occult blood in the E.D. -Has received a total of 2 units of PRBCs -Continue GI protection w/ protonix since we do not know the source of her anemia (presumably cancer related) and she is on heparin alleged bilateral iliofemoral DVT (see below) -Hb 9.7 this AM, will f/u again tomorrow Qualifiers: Anemia type: unspecified type Qualified Code(s): D64.9 - Anemia, unspecified (2) Deep vein thrombosis (DVT) of iliofemoral vein: Status: Suspected Assessment and plan: -Reviewed CTA with on-call radiologist who recommended bilateral lower extremity Doppler -After reviewing CTA and Doppler, appears patient does have bilateral DVTs -will continue heparin drip for an additional 24 hours prior to transitioning to oral anticoagulant -Patient does not want transfer and does not want a procedure. Qualifiers: Laterality: bilateral Qualified Code(s): I82.423 - Acute embolism and thrombosis of iliac vein, bilateral (3) Hypokalemia: Status: Acute Assessment and plan: -need parenteral and enteral replacemen -f/u AM BMP (4) Community acquired pneumonia of right lower lobe of lung: Status: Acute Assessment and plan: -per CT she has bilateral pleural effusions and a right lower lobe infiltrate; unclear as to whether this is pneumonia vs atelectasis or tumor. -Clinically she is not having fever but has chronic chills, no sputum production; she has chronic dyspnea, -cover empirically w/ Ceftriaxone and doxycycline. -f/u urine Strep and Legionella antigen and procalcitonin. (5) Stage 4 lung cancer: Status: Acute Assessment and plan: -reportedly stable, last chemotherapy was 3 weeks ago Qualifiers: Laterality: unspecified laterality Qualified Code(s): C34.90 - Malignant neoplasm of unspecified part of unspecified bronchus or lung (6) Protein malnutrition: Status: Acute Assessment and plan: -will begin on protein supplements, ask for nutrition consult (7) Chronic distal aortic occlusion: Status: Acute Assessment and plan: -her distal aortic occlusion has been known at [facility] since November 2020 (see aorta w/ runoff study). She has very poor circulation in her legs/feet, no palpable (8) DNR (do not resuscitate): Status: Acute Assessment and plan: -per patient she is DNR/DNI, she does not have COLST form, I will have Palliative care meet w/ her and assist in COLST Subjective Subjective Interval history since last seen: Patient states that she is feeling better today and is looking forward to working with PT. Exam Narrative Exam Narrative: Frail appearing older female laying in bed in no acute distress, AOx4, heart RRR, lungs CTAB, abdomen soft, nontender, nondistended Objective Last Vital Signs Temp 99.7 F H 06/26/23 15:50 Pulse 95 H 06/26/23 15:50 Resp 25 H 06/26/23 15:50 BP 91/63 L 06/26/23 15:50 Pulse Ox 96 06/26/23 15:50 Laboratory Results - last 24 hr 06/25/23 06/25/23 06/26/23 08:00 23:25 05:40 WBC 5.71 RBC 2.74 L Hgb 8.7 L Hct 24.9 L MCV 91 MCH 31.8 MCHC 34.9 RDW 22.7 H Plt Count 64 L MPV 10.9 APTT 78.7 H 77.5 H Sodium 143 Potassium 2.9 L* Chloride 108 H Carbon Dioxide 25.0 Anion Gap 10.0 BUN 12 Creatinine 0.9 Est GFR (CKD-EPI 2020) 68.77 Glucose 100 Calcium 7.6 L Prealbumin 6 L
--- NOTE | 2023-06-26 17:42 | W.PM.PROGNOT ---
Date of Service Date of service: 06/26/23 Time of Service: 17:42 Assessment and Plan Assessment and plan (1) Anemia: Status: Chronic Assessment and plan: -patient w/ progressive anemia but no signs or symptoms of GI bleeding, i.e. no melena or hematochezia and stool was negative for occult blood in the E.D. -Has received a total of 2 units of PRBCs -Continue GI protection w/ protonix since we do not know the source of her anemia (presumably cancer related) and she is on heparin alleged bilateral iliofemoral DVT (see below) -Hb 8.7 this AM, will f/u again tomorrow Qualifiers: Anemia type: unspecified type Qualified Code(s): D64.9 - Anemia, unspecified (2) Deep vein thrombosis (DVT) of iliofemoral vein: Status: Suspected Assessment and plan: -Reviewed CTA with on-call radiologist who recommended bilateral lower extremity Doppler -After reviewing CTA and Doppler, appears patient does have bilateral DVTs -Patient was on heparin drip for 48 hours -Has since been transitioned to treatment with p.o. Eliquis -Patient does not want transfer and does not want a procedure. Qualifiers: Laterality: bilateral Qualified Code(s): I82.423 - Acute embolism and thrombosis of iliac vein, bilateral (3) Hypokalemia: Status: Acute Assessment and plan: -need parenteral and enteral replacemen -f/u AM BMP (4) Community acquired pneumonia of right lower lobe of lung: Status: Acute Assessment and plan: -per CT she has bilateral pleural effusions and a right lower lobe infiltrate; unclear as to whether this is pneumonia vs atelectasis or tumor. -Clinically she is not having fever but has chronic chills, no sputum production; she has chronic dyspnea, -cover empirically w/ Ceftriaxone and doxycycline. -f/u urine Strep and Legionella antigen and procalcitonin. (5) Stage 4 lung cancer: Status: Acute Assessment and plan: -reportedly stable, last chemotherapy was 3 weeks ago Qualifiers: Laterality: unspecified laterality Qualified Code(s): C34.90 - Malignant neoplasm of unspecified part of unspecified bronchus or lung (6) Protein malnutrition: Status: Acute Assessment and plan: -will begin on protein supplements, ask for nutrition consult (7) Chronic distal aortic occlusion: Status: Acute Assessment and plan: -her distal aortic occlusion has been known at [facility] since November 2020 (see aorta w/ runoff study). She has very poor circulation in her legs/feet, no palpable (8) DNR (do not resuscitate): Status: Acute Assessment and plan: -per patient she is DNR/DNI, she does not have COLST form, I will have Palliative care meet w/ her and assist in COLST Subjective Subjective Interval history since last seen: Patient states that she had a rough night sleeping last night but was able to rest throughout the day today and feels significantly better. Exam Narrative Exam Narrative: Frail appearing older female laying in bed in no acute distress, AOx4, heart RRR, lungs CTAB, abdomen soft, nontender, nondistended Objective Last Vital Signs Temp 99.7 F H 06/26/23 15:50 Pulse 95 H 06/26/23 15:50 Resp 25 H 06/26/23 15:50 BP 91/63 L 06/26/23 15:50 Pulse Ox 96 06/26/23 15:50 Laboratory Results - last 24 hr 06/25/23 06/25/23 06/26/23 08:00 23:25 05:40 WBC 5.71 RBC 2.74 L Hgb 8.7 L Hct 24.9 L MCV 91 MCH 31.8 MCHC 34.9 RDW 22.7 H Plt Count 64 L MPV 10.9 APTT 78.7 H 77.5 H Sodium 143 Potassium 2.9 L* Chloride 108 H Carbon Dioxide 25.0 Anion Gap 10.0 BUN 12 Creatinine 0.9 Est GFR (CKD-EPI 2020) 68.77 Glucose 100 Calcium 7.6 L Prealbumin 6 L Time Spent with Patient Time Spent with Patient: >50 minutes Time was spent: preparing to see the patient(eg.review tests), obtaining and/or reviewing separately otained hiistory, ordering medications,tests, procedures, referring, communicating with other health urgent care physician assistant, indepentently interpreting results, counseling the patient and care coordination
[2023-06-26 20:06] VITALS: BP 97/66; PULSE 91; RESP 18; TEMP 37; O2SAT 95
[2023-06-26] MEDS: Atorvastatin 20 MG TAB 40 MG PO (20:56)
[2023-06-26] MEDS: Potassium Chloride 20 MEQ TABCR 40 MEQ PO (20:57)
[2023-06-26] MEDS: cefTRIAXone 2 GM/50 ML BAG IVPB (20:57)
[2023-06-26 21:20] LABS: Legionella Ag Detection Urine Negative (Negative)
[2023-06-26 23:34] VITALS: BP 100/65; PULSE 82; RESP 16; TEMP 37.4; O2SAT 96
[2023-06-27] VITALS (7 sets, daily range): BP systolic 84–120; BP diastolic 57–71; PULSE 68–82; RESP 16–22; TEMP 36.6–37.2; O2SAT 93–100
[2023-06-27] MEDS: DOXYCYCLINE 100 MG in Normal Saline 100 ML IVPB ×3 (00:15→23:32)
[2023-06-27 00:28] LABS: Streptococcus Pneumoniae Ag, U Negative (Negative)
[2023-06-27 08:15] LABS: Anion Gap 9.4 mmol/L (3-11); BUN 17 mg/dL (7-18); CO2 25.6 mmol/L (21.0-32.0); CREATININE 0.9 mg/dL (0.55-1.02); Calcium 7.7 mg/dL (8.5-10.1); Chloride 111 mmol/L (98-107); Estimated GFR 68.77 (mL/min/1.73m2); Glucose 94 mg/dL (74-106); PTT Activated 31.6 sec (23.6-32.8); Sodium 146 mmol/L (136-145)
[2023-06-27] MEDS: Protein Nutritional Supplement 16 GM 1 OUNCE PACKET PO ×3 (08:58→20:31)
[2023-06-27] MEDS: Acetaminophen 500 MG TAB 1000 MG PO ×2 (08:58→20:31)
[2023-06-27] MEDS: Apixaban 5 MG TAB 10 MG PO ×2 (08:58→20:31)
[2023-06-27] MEDS: Pantoprazole 40 MG VIAL IVP ×2 (08:59→20:32)
[2023-06-27] MEDS: Potassium Chloride 20 MEQ TABCR 40 MEQ PO ×2 (08:59→20:31)
--- NOTE | 2023-06-27 10:28 | PDOC.CMPRO ---
Date of service: 06/27/23 Time of Service: 10:28 Care Management Progress Note Progress Note Text Progress Note Text: S/O:Kita was lying in bed when CM met with her. She was much more awake and alert today than yesterday. CM asked Kita if she had given any more thought to going to rehab as she identified that she is not doing well at home. She was unwilling to commit, asking where she would go and stating that it would be hard for her to get to see her. She expressed a desire to remain at [facility] . CM informed her that when she is medically ready, she will need to discharge. She has one good friend, Puja, who has been helpful but who is unable to function as her caregiver. Kita thought it might be possible to go stay at Puja's house but Puja was not able to make that commitment when Kita called and asked her. Puja is away until Sunday and Kita informed CM that she would like to remain at [facility] at least until she returns. Again, CM stated that if she is medically ready before then, that she will need to go home or to a SNF. Kita has yet to agree to having referrals sent to any SNFs. A: Kita is a 72 year old woman admitted on 06/24/23 with anemia, hypokalemia and stage IV lung cancer P:Anticipate Kita will be discharged home with no new services. She will follow up with community providers and plan of care and transport with family. CM will follow and support discharge planning needs.
[2023-06-27] MEDS: HYDROmorphone 4 MG TAB PO ×2 (11:41→20:31)
[2023-06-27] MEDS: hydrOXYzine HCL 25 MG TAB PO ×2 (11:41→20:31)
--- NOTE | 2023-06-27 14:34 | W.NUTRFU ---
Date of service: 06/27/23 Time of Service: 14:00 Nutrition Note NOTE: 72 years old, 5?3?? 127lb (57.7kg) BMI: 22.6 ? Energy needs: 1,842 kcal/day Protein needs: 58g/day (1g/kg) Fluid needs: 55-60oz/day ? Most recent weight 06/27 increased 33lb in 3 days. Question weight accuracy. Previous weight 06/24: 94lb. If lower weight is more accurate, recommend protein nourishments 3x day. When discussing nutrition supplements with patient, pt stated ?does not like boosts or ensures.? Offered yogurt smoothies with Whey protein. Pt had first smoothie last night 06/26, will follow up on satisfaction. Initiating calorie counting 06/27 at lunch. Pt consuming on average 25% of meals. ? Provide Regular diet as ordered. Monitor weights and food intake Monitor calorie intake daily Continue to provide protein nourishments 3x/day (via Rx liquid protein concentrate) Provide Whey protein smoothies with meals as desired/tolerated. Would consider enteral feeding support based in outcome of current calorie count. Documentation generated by Fanta Goel, Video Games Mechanic Reviewed and approved by Ricki Hale RDN, CD Time Spent in Nutritional Counseling and Treatment: 30 minutes
--- NOTE | 2023-06-27 16:34 | W.PM.PROGNOT ---
Date of Service Date of service: 06/27/23 Time of Service: 16:34 Assessment and Plan Assessment and plan (1) Anemia: Status: Chronic Assessment and plan: -patient w/ progressive anemia but no signs or symptoms of GI bleeding, i.e. no melena or hematochezia and stool was negative for occult blood in the E.D. -Has received a total of 2 units of PRBCs -Continue GI protection w/ protonix since we do not know the source of her anemia (presumably cancer related) and she is on heparin alleged bilateral iliofemoral DVT (see below) -Hb 8.7 Qualifiers: Anemia type: unspecified type Qualified Code(s): D64.9 - Anemia, unspecified (2) Deep vein thrombosis (DVT) of iliofemoral vein: Status: Suspected Assessment and plan: -Reviewed CTA with on-call radiologist who recommended bilateral lower extremity Doppler -After reviewing CTA and Doppler, appears patient does have bilateral DVTs -Patient was on heparin drip for 48 hours -Has since been transitioned to treatment with p.o. Eliquis -Patient does not want transfer and does not want a procedure. Qualifiers: Laterality: bilateral Qualified Code(s): I82.423 - Acute embolism and thrombosis of iliac vein, bilateral (3) Hypokalemia: Status: Acute Assessment and plan: -need parenteral and enteral replacemen -f/u AM BMP (4) Community acquired pneumonia of right lower lobe of lung: Status: Acute Assessment and plan: -per CT she has bilateral pleural effusions and a right lower lobe infiltrate; unclear as to whether this is pneumonia vs atelectasis or tumor. -Clinically she is not having fever but has chronic chills, no sputum production; she has chronic dyspnea, -cover empirically w/ Ceftriaxone and doxycycline. -f/u urine Strep and Legionella antigen and procalcitonin. (5) Stage 4 lung cancer: Status: Acute Assessment and plan: -reportedly stable, last chemotherapy was 3 weeks ago Qualifiers: Laterality: unspecified laterality Qualified Code(s): C34.90 - Malignant neoplasm of unspecified part of unspecified bronchus or lung (6) Protein malnutrition: Status: Acute Assessment and plan: -will begin on protein supplements, ask for nutrition consult (7) Chronic distal aortic occlusion: Status: Acute Assessment and plan: -her distal aortic occlusion has been known at [facility] since November 2020 (see aorta w/ runoff study). She has very poor circulation in her legs/feet, no palpable (8) DNR (do not resuscitate): Status: Acute Assessment and plan: -per patient she is DNR/DNI, she does not have COLST form, I will have Palliative care meet w/ her and assist in COLST Subjective Subjective Interval history since last seen: Patient states that she feels well rested and has no complaints or concerns at the Exam Narrative Exam Narrative: Frail appearing older female laying in bed in no acute distress, AOx4, heart RRR, lungs CTAB, abdomen soft, nontender, nondistended Objective Last Vital Signs Temp 99.0 F 06/27/23 15:09 Pulse 78 06/27/23 15:09 Resp 20 06/27/23 15:09 BP 98/62 L 06/27/23 15:38 Pulse Ox 99 06/27/23 15:09 Laboratory Results - last 24 hr 06/24/23 06/25/23 06/27/23 22:25 16:00 06:55 APTT 31.6 Sodium 146 H Potassium 4.0 D Chloride 111 H Carbon Dioxide 25.6 Anion Gap 9.4 BUN 17 Creatinine 0.9 Est GFR (CKD-EPI 2020) 68.77 Glucose 94 Calcium 7.7 L Urine Legionella Ag Negative Ur Strep pneumoniae Ag Negative Time Spent with Patient Time Spent with Patient: >50 minutes Time was spent: preparing to see the patient(eg.review tests), obtaining and/or reviewing separately otained hiistory, ordering medications,tests, procedures, referring, communicating with other health career development engineer, indepentently interpreting results, counseling the patient and care coordination
--- NOTE | 2023-06-27 17:08 | PTTR_ITS ---
Date of service: 06/27/23 Time of Service: 16:43 PT Notes Visit Reasons: Anemia,General Weakness,Severe Hypokalemia Inpatient Physical Therapy Treatment Note [facility] Date: 06/27/23 PRECAUTIONS: Fall,standard, activity as tolerated SUBJECTIVE: Patient appears to be sleeping soundly when this clinician arrives. Does not respond to her name, awakens to a light touch at the back of her hand. Reports feeling exhausted. OBJECTIVE: Supine in bed, agreeable to sit EOB for dinner and do some light moving of her legs and arms. ? PAIN: none reported VITALS: monitored by nursing staff. ? ? BED MOBILITY/TRANSFERS? Rolling L/R: min assist Supine-sit: mod assist of one via handhold - patient pulls herself up.? Sit-supine: min assist of one to reposition shoulders, lift feet into bed. ? Sit-stand: not attempted? Stand-sit: not attempted? Bed-Chair: not attempted? Chair-bed: not attempted? Therapeutic Exercises (19087o2): Direct one-on-one instruction in therapeutic exercises to develop strength, endurance, range of motion and flexibility. ? Exercises: * seated ankle pumps * LAQ * seated marching Provided skilled instruction in proper exercise performance Provided skilled manual cues to facilitate proper muscle recruitment and/or form: verbal cues for posture, engagement of transverse abdominus. Neuromuscular Re-education ([id number]): Activities that facilitate re-education of movement balance, posture, coordination, and proprioception or kinesthetic sense, requiring skilled tactile and verbal cues ? Exercises/techniques: * feed forward dynamic balance activities including reaching outside AMRITA ASSESSMENT:? Patient tolerates therapy well, reports fatigue at end of session. PLAN: Continue global strengthening per plan of care until patient is medically cleared for discharge. TREATMENT CODE/TIME: 23 minutes beginning at 16:43
[2023-06-27] MEDS: Atorvastatin 20 MG TAB 40 MG PO (20:31)
[2023-06-27] MEDS: Normal Saline Flush 10 ML SYR IVP (20:32)
[2023-06-27] MEDS: cefTRIAXone 2 GM/50 ML BAG IVPB (21:47)
[2023-06-28 07:38] VITALS: BP 120/76; PULSE 68; RESP 18; TEMP 36.6; O2SAT 99
[2023-06-28] MEDS: Apixaban 5 MG TAB 10 MG PO ×2 (08:58→20:20)
[2023-06-28] MEDS: Potassium Chloride 20 MEQ TABCR 40 MEQ PO ×2 (08:58→20:19)
[2023-06-28] MEDS: Protein Nutritional Supplement 16 GM 1 OUNCE PACKET PO ×2 (09:00→20:20)
--- NOTE | 2023-06-28 09:28 | PCPN_ITS ---
Date of service: 06/28/23 Time of Service: 09:28 Assessment and Plan Assessment and plan (1) Palliative care patient: Status: Acute Assessment and plan: Ms. 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 Patient says that the cancer is controlled and it is working , but both she and her friend said they that she is getting weaker and having more difficulty taking care of herself and her .Over the last 6 weeks she has developed anemia which got quite profound over the last 2 weeks and was found to have bilateral DVT, new pleural effusions and possible pneumonia. and patient and friend all report some relatively new episodes of confusion, and she is overdue for follow-up head imaging. Anxiety: See discussion previous note. Pt says she feels very anxious otday, especially when she has to think about discharge. -Recommend:Starting citalopram 10 mg or mirtazapine 7.5 mg at bedtime to help with both anxiety (may have desirable side effect of increasing appetite) -Follow-up with PCP or palliative care to monitor and adjust as needed. -Consider ongoing counseling through primary care office to process feelings around illness, guilt over abandoning should she pass away, etc. Amazingly gnarly thick nails: -Is it poossible to have podiatry consult to address nails and feet prior to discharge? Discharge Planning: BOth patient and friend are concerned about her returning home unless there is additional support. Pt very reluctant to go to [facility] , as this woul dleave home along. She admits to only having sponge baths over the last few months. Feels unsafe in shower: shower does work and there is hot and running water. But no shower chair. We discussed the option of going home with [facility] refferal for RN, Social Work, PT, OT. Since patients goal is to remain at home for the rest of her life, she would be willing to have Home Health come into the home. HEr one concern is her dog, but there is a room he can be locked in when others are in the house. (She needs to ask her ). OT could help them set up home to adapt to disabilities and limitations, PT would help her get stronger. 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 [facility]?) Recommend: [facility] to start exploring this as well as identifying additional resources that might allow them to live safely at home longer. Pall Care Team will continue to follow up with patient in about 3-4 weeks. We are happy to see pt sooner if requested. 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 Also, important discussion with friend, given more in depth picture. -Reports she is a little better. -Did not walk with PT yesterday, did the day before. -SHe and staff deny further episodes of confusion last 24 hours. -Anxiety meds not started -CM/hospitalist feel pt will soon be ready for discharge. Pt hopes to remain in the hospital through the weekend. Objective Last Vital Signs Temp 36.6 C 06/28/23 07:38 Pulse 68 06/28/23 07:38 Resp 18 06/28/23 07:38 BP 120/76 06/28/23 07:38 Pulse Ox 99 06/28/23 07:38 Laboratory Results - last 24 hr 06/24/23 06/25/23 22:25 16:00 Urine Legionella Ag Negative Ur Strep pneumoniae Ag Negative
[2023-06-28] MEDS: Pantoprazole 40 MG VIAL IVP (10:32)
[2023-06-28] MEDS: Normal Saline Flush 10 ML SYR IVP (10:33)
[2023-06-28 11:15] VITALS: BP 115/76; PULSE 68; RESP 17; TEMP 36.7; O2SAT 98
--- NOTE | 2023-06-28 12:03 | PDOC.CMPRO ---
Date of service: 06/28/23 Time of Service: 12:03 Care Management Progress Note Progress Note Text Progress Note Text: S/O: Kita was lying in bed when CM met with her. She stated that she is doing ok, but does not feel ready for discharge today. CM discussed discharge options, as per report from MD and PT, the recommendation is for Kita to go to a SNF. She stated that she would prefer to return home, but would like to wait until her friend returns from vacation, on Sunday. CM stated that she will likely be discharged tomorrow, per MD. Kita agreed to referrals to be sent to the [facility], [facility], [place], and [facility]. She stated that her first choice would be to return home, and she is willing to have services at home. Per PT, she did well with them today, and was able to ambulate 5' forward and backward twice, although her anxiety is limiting her mobility. CM will continue to follow. A: Kita is a 72 year old woman admitted on 06/24/23 with anemia, hypokalemia and stage IV lung cancer P:Anticipate Kita will be discharged home with new orders for home health services vs SNF for short term rehab prior to returning home. She will follow up with community providers and plan of care and transport with family. CM will follow and support discharge planning needs.
[2023-06-28] MEDS: Prochlorperazine 10 MG TAB 6 MG PO (15:33)
[2023-06-28 15:39] VITALS: BP 124/81; PULSE 96; RESP 18; TEMP 36.7; O2SAT 100
[2023-06-28] MEDS: Acetaminophen 500 MG TAB 1000 MG PO (15:52)
--- NOTE | 2023-06-28 16:08 | W.PM.PROGNOT ---
Date of Service Date of service: 06/28/23 Time of Service: 16:08 Assessment and Plan Assessment and plan (1) Anemia: Status: Chronic Assessment and plan: -patient w/ progressive anemia but no signs or symptoms of GI bleeding, i.e. no melena or hematochezia and stool was negative for occult blood in the E.D. -Has received a total of 2 units of PRBCs -Continue GI protection w/ protonix since we do not know the source of her anemia (presumably cancer related) and she is on heparin alleged bilateral iliofemoral DVT (see below) -Hb 8.7 Qualifiers: Anemia type: unspecified type Qualified Code(s): D64.9 - Anemia, unspecified (2) Deep vein thrombosis (DVT) of iliofemoral vein: Status: Suspected Assessment and plan: -Reviewed CTA with on-call radiologist who recommended bilateral lower extremity Doppler -After reviewing CTA and Doppler, appears patient does have bilateral DVTs -Patient was on heparin drip for 48 hours -Has since been transitioned to treatment with p.o. Eliquis -Patient does not want transfer and does not want a procedure. Qualifiers: Laterality: bilateral Qualified Code(s): I82.423 - Acute embolism and thrombosis of iliac vein, bilateral (3) Hypokalemia: Status: Acute Assessment and plan: -need parenteral and enteral replacemen -f/u AM BMP (4) Community acquired pneumonia of right lower lobe of lung: Status: Acute Assessment and plan: -per CT she has bilateral pleural effusions and a right lower lobe infiltrate; unclear as to whether this is pneumonia vs atelectasis or tumor. -Clinically she is not having fever but has chronic chills, no sputum production; she has chronic dyspnea, -completed course of Ceftriaxone and doxycycline. -urine Strep and Legionella antigen negative (5) Stage 4 lung cancer: Status: Acute Assessment and plan: -reportedly stable, last chemotherapy was 3 weeks ago Qualifiers: Laterality: unspecified laterality Qualified Code(s): C34.90 - Malignant neoplasm of unspecified part of unspecified bronchus or lung (6) Protein malnutrition: Status: Acute Assessment and plan: -will begin on protein supplements, ask for nutrition consult (7) Chronic distal aortic occlusion: Status: Acute Assessment and plan: -her distal aortic occlusion has been known at [facility] since November 2020 (see aorta w/ runoff study). She has very poor circulation in her legs/feet, no palpable (8) DNR (do not resuscitate): Status: Acute Assessment and plan: -per patient she is DNR/DNI, she does not have COLST form, I will have Palliative care meet w/ her and assist in COLST Subjective Subjective Interval history since last seen: Patient states that she feels well rested and has no complaints or concerns at this time Exam Narrative Exam Narrative: Frail appearing older female laying in bed in no acute distress, AOx4, heart RRR, lungs CTAB, abdomen soft, nontender, nondistended Objective Last Vital Signs Temp 98.1 F 06/28/23 15:39 Pulse 96 H 06/28/23 15:39 Resp 18 06/28/23 15:39 BP 124/81 06/28/23 15:39 Pulse Ox 100 06/28/23 15:39 Time Spent with Patient Time Spent with Patient: >50 minutes Time was spent: preparing to see the patient(eg.review tests), obtaining and/or reviewing separately otained hiistory, referring, communicating with other health account executive healthcare, indepentently interpreting results, counseling the patient and care coordination
--- NOTE | 2023-06-28 17:12 | PTTR_ITS ---
Date of service: 06/28/23 Time of Service: 10:05 PT Notes Visit Reasons: Anemia,General Weakness,Severe Hypokalemia Inpatient Physical Therapy Treatment Note [facility] Date: 06/28/23 PRECAUTIONS: Fall, standard, activity as tolerated. SUBJECTIVE: Patient reports feeling tired all the time, however she is alert when this clinician enters. OBJECTIVE: Supine in bed, agreeable to therapy.? PAIN: none reported VITALS: monitored by nursing staff ? ? ? BED MOBILITY/TRANSFERS? Rolling L/R: min assist Supine-sit: min assist of one via handhold, patient pulls up. Mod verbal cues and encouragement. ? Sit-supine: Min assist of one to reposition shoulders. Patient lifts own legs into bed ? Sit-stand: CGA? Stand-sit: CGA? Bed-Chair: CGA ? Chair-bed: CGA ? Therapeutic Exercises ([id number]): Direct one-on-one instruction in therapeutic exercises to develop strength, endurance, range of motion and flexibility. ? Exercises: * Sit to stand x5 * walk forward 5 feet, walk backward 5 feet, seated rest x3 * heel / toe raises x10 * LAQ's x10 * seated marching x10. Ambulation ? Assistive Device: FWW? Weight bearing: full Assist: CGA ? Distance:? as above.? Deviation: kyphotic posture, slow shoshana, shortened step length. No LOB, no SOB. ? Provided skilled instruction in proper exercise performance Provided skilled manual cues to facilitate proper muscle recruitment and/or form. ASSESSMENT:? Patient tolerates therapy well, reports significant fatigue at end of treatment session. PLAN: Continue global strengthening per plan of care until patient is medically cleared for discharge. TREATMENT CODE/TIME: 23 minutes beginning at 10:05
--- NOTE | 2023-06-28 17:47 | CHAPLAIN ---
When I visited Kita this afternoon she had just finished speaking with her . She said it's difficult for him to be home alone, and she misses being with him. Today she said she has felt like she's going to throw up most of the day. She was also uncomfortable the way she was lying in bed, so we called for nursing to reposition her. Kita is looking forward to her friend returning from vacation, maybe as early as tomorrow, as this is someone she relies on for support. 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 Her friend has a new four-week old puppy which is also taking up some of her time.
[2023-06-28 20:18] VITALS: BP 97/60; PULSE 83; RESP 18; TEMP 35.8; O2SAT 96
[2023-06-28] MEDS: Atorvastatin 20 MG TAB 40 MG PO (20:20)
[2023-06-28] MEDS: Mirtazapine 15 MG TAB 7.5 MG PO (21:31)
[2023-06-28 23:50] VITALS: BP 111/65; PULSE 77; RESP 16; TEMP 36.5; O2SAT 98
[2023-06-29] MEDS: HYDROmorphone 4 MG TAB PO ×3 (01:45→21:16)
[2023-06-29 03:35] VITALS: BP 105/69; PULSE 87; RESP 18; TEMP 36.3; O2SAT 99
[2023-06-29 08:10] VITALS: BP 103/68; PULSE 105; RESP 24; TEMP 37.2; O2SAT 97
[2023-06-29 09:14] LABS: HCT 29.8 % (36.0-46.0); HGB 9.7 g/dL (11.2-15.7); MCH 31.5 pg (27.0-33.0); MCHC 32.6 % (32.0-36.0); MCV 97 fL (80-95); RBC 3.08 10^6/uL (3.93-5.22); WBC 6.38 10^3/uL (4.4-10.8)
[2023-06-29] MEDS: Protein Nutritional Supplement 16 GM 1 OUNCE PACKET PO ×3 (09:14→20:29)
[2023-06-29] MEDS: Potassium Chloride 20 MEQ TABCR 40 MEQ PO ×2 (09:15→20:29)
[2023-06-29 09:29] LABS: Platelet Count 93 10^3/uL (130-400); RDW 20.6 % (11.7-14.6)
--- NOTE | 2023-06-29 10:33 | CMPROGNOTE_ITS ---
Date of service: 06/29/23 Time of Service: 10:33 Care Management Progress Note Progress Note Text Progress Note Text: S/O: Kita was lying in bed when CM met with her. She was informed yesterday that she would be discharged home today if she did not [facility] a [facility]. She informed CM that her plan was to go home. Today she was deemed medically ready for discharge and orders to that effect were entered. Kita refused to loeave and appealed her discharge through [employer]. She will remain at [facility] until her case has been reviewed. A: Kita is a 72 year old woman admitted on 06/24/23 with anemia, hypokalemia and stage IV lung cancer P:Anticipate Kita will be discharged home with new orders for home health services vs SNF for short term rehab prior to returning home. She will follow up with community providers and plan of care and transport with family. CM will follow and support discharge planning needs.
[2023-06-29] MEDS: Pantoprazole 40 MG VIAL IVP ×2 (10:55→21:16)
--- NOTE | 2023-06-29 11:18 | W.PM.DS.N ---
DS: Diagnosis Discharge Diagnosis (1) Anemia: Status: Chronic (2) Deep vein thrombosis (DVT) of iliofemoral vein: Status: Suspected (3) Hypokalemia: Status: Acute (4) Community acquired pneumonia of right lower lobe of lung: Status: Acute (5) Stage 4 lung cancer: Status: Acute (6) Protein malnutrition: Status: Acute (7) Chronic distal aortic occlusion: Status: Acute (8) DNR (do not resuscitate): Status: Acute Discharge Plan Disposition Patient Disposition: Home W/Home Health Services Condition: Good Discharge Details Reason For Visit: Anemia,General Weakness,Severe Hypokalemia Admit Date/Time: 06/24/23 15:25 Admit Provider: Jeremy Freire Attending Provider: Jeremy Freire Primary Care Provider: Nitish Mccoy Hospital Course Hospital Course: Initially presented with acute on chronic anemia requiring 2 units of packed red blood cells on the day of admission but has had stable hemoglobin since that time. Patient was also found to have bilateral DVT and was on heparin drip for 48 hours and this has been transitioned to p.o. Eliquis. She has had a community-acquired pneumonia completed course of antibiotics during hospitalization. Was recommended for patient to go to subacute rehab as she continues to remain weak, she declined this recommendation and is now being discharged home with home health services. Home Meds and New Rx's Prescriptions: New mirtazapine 15 mg Tablet 7.5 mg PO HS Qty: 60 0RF Eliquis 5 mg Tablet 10 mg PO BID Qty: 60 0RF Continued atorvastatin 20 mg Tablet 40 mg PO QPM aspirin 81 mg Tablet,Delayed Release (Dr/Ec) 81 mg PO DAILY Patient Comments: Not taking acetaminophen [Tylenol Extra Strength] 500 mg Tablet 1,000 mg PO .Q6HRS PRN prochlorperazine maleate 10 mg tablet 6 mg PO Q6H PRN Patient Comments: TAKE ONE TABLET BY MOUTH EVERY 6 HOURS NEEDED FOR NAUSEA dexamethasone 4 mg tablet See Rx Instructions .ROUTE .COMPLEX Patient Comments: TAKE ONE TABLET BY MOUTH THE DAY BEFORE CHEMOTHERAPY AND THE DAY AFTER CHEMOTHERAPY Rx Instructions: Take 1 tab PO the day before and the day chemotherapy hydromorphone 4 mg tablet 4 mg PO Q4H hydroxyzine HCl 25 mg tablet 25 mg PO QID PRNQty: 14 0RF Discharge Instructions Instructions: Deep Vein Thrombosis (DC), Community Acquired Pneumonia (DC), Anemia (DC) Activity:: Activity as Tolerated Equipment/Supplies:: No Equipment Needed Diet:: As Tolerated Discharge Orders Discharge Orders: Discharge Order (Routine); Ordered 06/29/23 Ordered By: Bryan Rosas DS: Data Vitals/I&O Vitals and I&O: Vital Signs Temperature 99.0 F 06/29/23 08:10 Temperature Source Tympanic 06/29/23 08:10 Pulse 105 H 06/29/23 08:10 Pulse Rhythm Regular 06/28/23 22:05 Pulse 82 06/25/23 16:17 Respiratory Rate 24 06/29/23 08:10 Respiratory Effort Normal, Non-Labored 06/28/23 22:05 Respiratory Depth Shallow 06/28/23 22:05 Respiratory Pattern Tachypnea 06/28/23 22:05 Blood Pressure 103/68 06/29/23 08:10 Blood Pressure Mean 75 06/25/23 16:17 Blood Pressure Position Right Lateral 06/24/23 20:19 Pulse Oximetry 97 06/29/23 08:10 Oxygen Delivery Method Room Air 06/29/23 08:10 Oxygen Flow Rate 0 06/29/23 08:10 Pain Level 0 06/29/23 03:35 Comment Nurse notified about the vitals. 06/26/23 12:35 Intake & Output 06/28/23 06/29/23 06/29/23 17:59 05:59 17:59 Intake Total 150 / 150 300 / 450 Output Total 1650 / 1650 1200 / 2850 Balance -1500 / -1500 -900 / -2400 Weight 109 lb 1.6 oz Intake: IV 150 / 150 Oral 300 / 300 Output: Urine 1650 / 1650 1200 / 2850 Other: Urine Color Yellow Yellow Urine Appearance Clear Clear Urine Odor Normal Comment purwick purewick Stool Size Moderate Moderate Stool Characteristics Formed Soft Voiding Methods Incontinent Diaper Incontinent Incontinent Data Completed and Pending Labs on day of discharge: Labs from last 24 hours 06/29/23 06/29/23 10:30 06:40 WBC 6.38 RBC 3.08 L Hgb 9.7 L Hct 29.8 L MCV 97 H D MCH 31.5 MCHC 32.6 D RDW 20.6 H Plt Count 93 L MPV 11.0 Sodium Pending Potassium Pending Chloride Pending Carbon Dioxide Pending Anion Gap Pending BUN Pending Creatinine Pending Est GFR (CKD-EPI 2020) Pending Glucose Pending Calcium Pending Magnesium Pending Total Bilirubin Pending AST Pending ALT Pending Alkaline Phosphatase Pending Total Protein Pending Albumin Pending PFSH All Active Problems (Updated 06/26/23 @ 15:32 by Amaya Olsen MD) Chronic pain (Chronic) Low Back pain on hydrocodone. Not cancer related. 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 (Acute) Advanced care planning/counseling discussion (Acute) Palliative care patient (Acute) Community acquired pneumonia of right lower lobe of lung (Acute) DNR (do not resuscitate) (Acute) Protein malnutrition (Acute) Chronic distal aortic occlusion (Acute) Anemia (Chronic) Stage 4 lung cancer (Acute) Hypokalemia (Acute) Closed fracture of left pelvis (Acute) Lumbago (Acute) Social History Smoking/Tobacco Use Status: Former Tobacco Use Quit Date: 10/11/22 Smoking risk assessment performed?: Yes Alcohol Intake: never Drug use: Never Substance use type: does not use Housing: house Do you feel safe at home: Yes Do you feel safe in your relationship?: Yes Additional Social history: Lives with
--- NOTE | 2023-06-29 11:19 | PDOC.HHF2F ---
Home Health Referral Home Health Orders Clinical synopsis of why skilled professionals are needed: Metastatic non-small cell with mets to lymph node and brain receiving palliative chemoimmunotherapy, bilateral DVT, pneumonia, acute on chronic anemia, difficulty ambulating and weak Medical diagnosis necessitation home health referral: As noted above Registered Nurse: Check all that apply Instruct on new or changed medication(s)/assess compliance: Ordered Instruct on, and maintenance of, urinary device: Ordered Physical Therapist: Check all that apply Increase strength & endurance for safe mobility at home: Ordered To design/establish home maintenance program: Ordered Fall reduction therapy program for patient with history of frequent falls: Ordered Home safety evaluation and teaching/gait training including stair management (if applicable): Ordered Occupational Therapist: Evaluate and treat for patient unable to perform ADL/IADL/self-care: Ordered Improvement Analyst: Assist with community resources: Ordered Assist with devops solutions architect care planning: Ordered Home Bound Status Use of Special Transportation (Describe transportation and medical necessity): Wheelchair Patient has a condition such that leaving home is medically contraindicated (Describe): Metastatic cancer, acute on chronic anemia, DVT Encounter Date and Reason: I certify that a FTF encounter for this patient was performed on June 29, 2023 and that such encounter was related to the primary reason the patient requires home health services. The encounter was conducted in the following manner: By me as the certifying physician, TAX ASSOCIATE ATTORNEY, PA or By an inpatient physician, TAX ASSOCIATE ATTORNEY or PA during an inpatient stay who communicated findings to me, Certification And Authentication I certify that I composed the above information based on my clinical judgment relating to this patient's medical condition and, if applicable, clinical findings communicated to me by the NPP or inpatient physician who performed the FTF encounter. Name of Provider that will be monitoring home health services: Nitish Mccoy
[2023-06-29 11:38] LABS: ALT 35 U/L (14-59); AST 78 U/L (15-37); Albumin 1.7 g/dL (3.4-5.0); Alkaline Phosphatase 664 U/L (46-116); Anion Gap 6.8 mmol/L (3-11); BUN 20 mg/dL (7-18); Bilirubin, Total 0.6 mg/dL (0.2-1.0); CO2 24.2 mmol/L (21.0-32.0); Calcium 8.5 mg/dL (8.5-10.1); Chloride 110 mmol/L (98-107); Estimated GFR 60.61 (mL/min/1.73m2); Glucose 104 mg/dL (74-106); Magnesium 1.5 mg/dL (1.8-2.4); Potassium 4.7 mmol/L (3.5-5.1); Sodium 141 mmol/L (136-145); Total Protein 5.9 g/dL (6.4-8.2)
[2023-06-29 12:10] VITALS: BP 111/78; PULSE 106; RESP 24; TEMP 37; O2SAT 99
[2023-06-29] MEDS: hydrOXYzine HCL 25 MG TAB PO ×2 (13:59→21:16)
--- NOTE | 2023-06-29 14:03 | PGE_ITS ---
Date of Service Date of service: 06/29/23 Time of Service: 14:03 Assessment and Plan Assessment and plan (1) Anemia: Status: Chronic Assessment and plan: -patient w/ progressive anemia but no signs or symptoms of GI bleeding, i.e. no melena or hematochezia and stool was negative for occult blood in the E.D. -Has received a total of 2 units of PRBCs -Continue GI protection w/ protonix since we do not know the source of her anemia (presumably cancer related) and she is on heparin alleged bilateral iliofemoral DVT (see below) -Hb 8.7 Qualifiers: Anemia type: unspecified type Qualified Code(s): D64.9 - Anemia, unspecified (2) Deep vein thrombosis (DVT) of iliofemoral vein: Status: Suspected Assessment and plan: -Reviewed CTA with on-call radiologist who recommended bilateral lower extremity Doppler -After reviewing CTA and Doppler, appears patient does have bilateral DVTs -Patient was on heparin drip for 48 hours -Has since been transitioned to treatment with p.o. Eliquis -Patient does not want transfer and does not want a procedure. Qualifiers: Laterality: bilateral Qualified Code(s): I82.423 - Acute embolism and thrombosis of iliac vein, bilateral (3) Hypokalemia: Status: Acute Assessment and plan: -need parenteral and enteral replacemen -f/u AM BMP (4) Community acquired pneumonia of right lower lobe of lung: Status: Acute Assessment and plan: -per CT she has bilateral pleural effusions and a right lower lobe infiltrate; unclear as to whether this is pneumonia vs atelectasis or tumor. -Clinically she is not having fever but has chronic chills, no sputum production; she has chronic dyspnea, -completed course of Ceftriaxone and doxycycline. -urine Strep and Legionella antigen negative (5) Stage 4 lung cancer: Status: Acute Assessment and plan: -reportedly stable, last chemotherapy was 3 weeks ago Qualifiers: Laterality: unspecified laterality Qualified Code(s): C34.90 - Malignant neoplasm of unspecified part of unspecified bronchus or lung (6) Protein malnutrition: Status: Acute Assessment and plan: -will begin on protein supplements, ask for nutrition consult (7) Chronic distal aortic occlusion: Status: Acute Assessment and plan: -her distal aortic occlusion has been known at [facility] since November 2020 (see aorta w/ runoff study). She has very poor circulation in her legs/feet, no palpable (8) DNR (do not resuscitate): Status: Acute Assessment and plan: -per patient she is DNR/DNI, she does not have COLST form, I will have Palliative care meet w/ her and assist in COLST Subjective Subjective Interval history since last seen: Patient appealing hospital discharge while also refusing to consider going to [facility]. Exam Narrative Exam Narrative: Frail appearing older female laying in bed in no acute distress, AOx4, heart RRR, lungs CTAB, abdomen soft, nontender, nondistended Objective Last Vital Signs Temp 98.6 F 06/29/23 12:10 Pulse 106 H 06/29/23 12:10 Resp 24 06/29/23 12:10 BP 111/78 06/29/23 12:10 Pulse Ox 99 06/29/23 12:10 Laboratory Results - last 24 hr 06/29/23 06/29/23 06:40 10:30 WBC 6.38 RBC 3.08 L Hgb 9.7 L Hct 29.8 L MCV 97 H D MCH 31.5 MCHC 32.6 D RDW 20.6 H Plt Count 93 L MPV 11.0 Sodium 141 Potassium 4.7 Chloride 110 H Carbon Dioxide 24.2 Anion Gap 6.8 BUN 20 H Creatinine 1.0 Est GFR (CKD-EPI 2020) 60.61 Glucose 104 Calcium 8.5 Magnesium 1.5 L Total Bilirubin 0.6 AST 78 H ALT 35 Alkaline Phosphatase 664 H Total Protein 5.9 L Albumin 1.7 L Time Spent with Patient Time Spent with Patient: >50 minutes Time was spent: preparing to see the patient(eg.review tests), obtaining and/or reviewing separately otained hiistory, referring, communicating with other health respiratory care instructor, indepentently interpreting results, counseling the patient and care coordination
--- NOTE | 2023-06-29 15:14 | PT.INTREAT ---
Date of service: 06/29/23 Time of Service: 14:56 PT Notes Visit Reasons: Anemia,General Weakness,Severe Hypokalemia Inpatient Physical Therapy Treatment Note [facility] Date: 06/29/23 PRECAUTIONS: Fall, standard, activity as tolerated. SUBJECTIVE: Patient refuses PT this AM stating that she is in too much pain. Waffles about participating in therapy, ultimately decides that she could try to sit up at the side of the bed for just a short time. OBJECTIVE: Patient sidelying in bed, pillow between knees, pillow between torso and top arm, heating pad between pillow and top arm. Somewhat agreeable to therapy.? PAIN: none specifically reported. Anxiety appears to be the limiting factor. VITALS: closely monitored by nursing staff via telemetry. Therapeutic Activities ([id number]): Direct one-on-one instruction in dynamic activities to improve functional performance. ? ? BED MOBILITY/TRANSFERS? Rolling L/R: min assist of one Supine-sit: mod assist of one lifting up below the shoulder? Sit-supine: independent ? Sit-stand: unable ? Stand-sit: not assessed ? Bed-Chair: not assessed ? Chair-bed: not assessed Patient worked on sitting tolerance, sitting up for ~10 minutes. Refused seated leg exercises. Made 2 attempts to stand, was unable. Complained that the pressure on the gait belt was causing pain and increased nausea when this clinician attempted to assist. Provided skilled cues and instruction on performance and technique throughout. ASSESSMENT:? Patient refuses to participate further, citing nausea, stomach pain, and anxiety. PLAN: Continue strengthening per plan of care to patient tolerance. TREATMENT CODE/TIME: 16 minutes beginning at 14:56
[2023-06-29 17:29] VITALS: BP 104/68; PULSE 88; RESP 18; TEMP 37.4; O2SAT 98
[2023-06-29 20:24] VITALS: BP 111/75; PULSE 94; RESP 16; TEMP 37; O2SAT 98
[2023-06-29] MEDS: Atorvastatin 20 MG TAB 40 MG PO (20:29)
[2023-06-29] MEDS: Mirtazapine 15 MG TAB 7.5 MG PO (21:16)
[2023-06-29] MEDS: Normal Saline Flush 10 ML SYR IVP (21:16)
[2023-06-29] MEDS: Apixaban 5 MG TAB 10 MG PO (21:17)
[2023-06-29 23:29] VITALS: BP 109/73; PULSE 96; RESP 16; TEMP 36.1; O2SAT 99
[2023-06-30] VITALS (9 sets, daily range): BP systolic 94–107; BP diastolic 58–73; PULSE 67–103; RESP 16–20; TEMP 36.2–38; O2SAT 94–98
--- NOTE | 2023-06-30 | DI.RAD_ITS ---
Exam(s) XR PORTABLE CHEST AP EXAM: XR PORTABLE CHEST AP CLINICAL HISTORY: fever TECHNIQUE: 2D digital imaging was performed. COMPARISON: CR XR RIBS RT W PA LAT CHEST from 10/06/[address] CHEST/ABD/PEL W from 06/24/2023 FINDINGS: Exam is extremely limited by poor pulmonary inflation. LUNGS: Increased densities at both lung bases. Small bilateral pleural effusions. HEART: Normal size. AORTA: Normal diameter. BONES: Thoracic compression fracture not well seen on this AP view. Nondisplaced fracture distal lef t clavicle of indeterminate age.. Soft tissues: Port overlies the right chest. IMPRESSION: Limited exam due to poor pulmonary inflation. Small bilateral pleural effusions and bibasilar infil trates versus atelectasis. DATA REPOSITORY: RADIATION DOSE DELIVERED:
[2023-06-30] MEDS: Magnesium Oxide 400 MG TAB PO ×2 (08:54→20:09)
[2023-06-30] MEDS: Protein Nutritional Supplement 16 GM 1 OUNCE PACKET PO ×2 (08:54→15:56)
[2023-06-30] MEDS: Potassium Chloride 20 MEQ TABCR 40 MEQ PO ×2 (08:54→20:09)
[2023-06-30] MEDS: Apixaban 5 MG TAB 10 MG PO ×2 (08:54→20:09)
[2023-06-30] MEDS: hydrOXYzine HCL 25 MG TAB PO ×2 (09:02→20:09)
[2023-06-30] MEDS: HYDROmorphone 4 MG TAB PO ×2 (09:02→20:10)
[2023-06-30] MEDS: Pantoprazole 40 MG VIAL IVP (09:30)
[2023-06-30 09:50] LABS: Anion Gap 7.2 mmol/L (3-11); BUN 18 mg/dL (7-18); CO2 23.8 mmol/L (21.0-32.0); Calcium 8.5 mg/dL (8.5-10.1); Chloride 107 mmol/L (98-107); Estimated GFR 60.61 (mL/min/1.73m2); Glucose 108 mg/dL (74-106); Magnesium 1.5 mg/dL (1.8-2.4); Potassium 4.1 mmol/L (3.5-5.1); Sodium 138 mmol/L (136-145)
--- NOTE | 2023-06-30 10:14 | PT.INTREAT ---
PT Notes Visit Reasons: Anemia,General Weakness,Severe Hypokalemia Date: 06/30/23 PRECAUTIONS: Fall, standard, activity as tolerated. SUBJECTIVE: Patient reports pain on her butt area, agreed to participating with therapy as long as she stayed in bed. OBJECTIVE: Supine in bed, agreeable to therapy.? PAIN: 04/22 sacral area VITALS: monitored by nursing staff ? ? ? BED MOBILITY/TRANSFERS? Rolling L/R: min assist Supine-sit: not performed ? Sit-supine: not performed? Sit-stand: not performed ? Stand-sit: not performed ? Bed-Chair: not performed ? Chair-bed: not performed ? Therapeutic Exercises ([id number]): Direct one-on-one instruction in therapeutic exercises to develop strength, endurance, range of motion and flexibility. ? Exercises: Supine knee toches [id number] Supine hip ab/ad [id number] Supine SLR [id number] Supine hooklying trunk rotation [id number] supine hip internal/external rotation [id number] Supine knee flexion [id number] supine aknle dorsiplantar flexion [id number] supine ankle in/ev [id number] Provided skilled instruction in proper exercise performance Provided skilled manual cues to facilitate proper muscle recruitment and/or form. ASSESSMENT:? Pt tolerated activity well, reports she is happy she participated and that that she feels slightly better, refused further activity after therapeutic procedures. PLAN: Continue global strengthening per plan of care until patient is medically cleared for discharge. TREATMENT CODE/TIME: 42826a4 15minutes (9:55-10:10am)
[2023-06-30] MEDS: Acetaminophen 500 MG TAB 1000 MG PO (11:14)
[2023-06-30 12:25] LABS: Abs Immature Grans 0.09 10^3/uL (0.0-0.06); Absolute Basophil Count 0.02 10^3/uL (0.0-0.2); Absolute Eosinophil Count 0.02 10^3/uL (0.0-0.7); Absolute Lymphocyte Count 1.22 10^3/uL (1.2-3.4); Absolute Monocyte Count 0.86 10^3/uL (0.1-0.8); Absolute Neutrophil Count 4.86 10^3/uL (1.2-6.7); Basophils % 0.3; Eosinophils % 0.3; HCT 28.6 % (36.0-46.0); HGB 9.2 g/dL (11.2-15.7); Immature Grans % 1.3; Lymphocytes % 17.3; MCH 31.5 pg (27.0-33.0); MCHC 32.2 % (32.0-36.0); MCV 98 fL (80-95); MPV 10.6 fL (8.0-11.0); Monocytes % 12.2; Neutrophils % 68.6; Platelet Count 107 10^3/uL (130-400); RBC 2.92 10^6/uL (3.93-5.22); RDW 20.1 % (11.7-14.6); RDW-SD 65.9 fL; WBC 7.07 10^3/uL (4.4-10.8)
[2023-06-30 12:43] LABS: COVID-19 PCR Negative (Negative); Influenza A PCR Negative (Negative); Influenza B PCR Negative (Negative); RSV PCR Negative (Negative)
[2023-06-30 12:46] LABS: Source Nasopharynx
[2023-06-30] MEDS: MAGNESIUM SULFATE 4 GM/100 ML BAG IVPB (13:16)
[2023-06-30 13:48] LABS: Bilirubin Negative (Negative); Blood Trace-intact (Negative); Clarity Clear (Clear); Glucose Negative (Negative); Ketones Negative (Negative); Leukocyte Esterase Negative (Negative); Nitrite Negative (Negative); Specific Gravity 1.015 (1.005-1.025); Urobilinogen 0.2 mg/dL (Up to 0.2)
[2023-06-30 13:55] LABS: Epithelial Cells Few HPF (Negative); Other Cells Few Transitional (Negative); WBC 0-2 HPF (0-5)
[2023-06-30 13:56] LABS: Bacteria Negative HPF (Negative); C & S Indicated? No; Casts Negative LPF (Negative); Crystals Negative HPF (Negative); Mucus Negative (Negative)
--- NOTE | 2023-06-30 14:23 | DI.VRAD_ITS ---
PROCEDURE INFORMATION: Exam: XR Chest Exam date and time: 06/30/2023 1:48 PM Age: 72 years old Clinical indication: Other: Fever TECHNIQUE: Imaging protocol: Radiologic exam of the chest. Views: 1 view. COMPARISON: CT CHEST/ABD/PEL W 06/24/2023 2:56 PM FINDINGS: Tubes, catheters and devices: MediPort terminates in the superior vena cava Lungs: Opacities in both bases may represent atelectasis or pneumonia.. Pleural spaces: Mild bilateral pleural effusions. Heart/Mediastinum: Unremarkable. No cardiomegaly. Bones/joints: Vertebroplasty in the thoracic spine IMPRESSION: 1. Opacities in both bases may represent atelectasis or pneumonia.. 2. Mild bilateral pleural effusions. Dictated and Authenticated by: Ramsey Hayes MD. Ordering:VANDANA Maria MD
[2023-06-30 17:32] LABS: MRSA PCR Negative (Negative)
[2023-06-30] MEDS: CEFEPIME 2 GM in Normal Saline 100 ML IVPB (17:37)
--- NOTE | 2023-06-30 18:50 | PGE_ITS ---
Date of Service Date of service: 06/30/23 Time of Service: 18:50 Assessment and Plan Assessment and plan (1) Fever: Status: Acute Assessment and plan: infiltrates vs atelectasis on CXR. Does have an infusaport as well. Started on empiric cefepime. I personally instructed the patient on the frequency of using the incentive spirometer. Await blood cultures. Fever could also have been caused by the DVTs. (2) Community acquired pneumonia of right lower lobe of lung: Status: Acute Assessment and plan: As above Given fever today, trialing cefepime. (3) Anemia: Status: Chronic Assessment and plan: No active bleeding. Continue PPI (switch to PO). H/H stable after transfusion of 2 units pRBCs. Qualifiers: Anemia type: unspecified type Qualified Code(s): D64.9 - Anemia, unspecified (4) Deep vein thrombosis (DVT) of iliofemoral vein: Status: Suspected Assessment and plan: bilateral LE DVTs, present on admission. Tolearting Eliquis. Consider IVC filter if aligns with patient's wishes or anemia worsens/bleeding occurs. Qualifiers: Laterality: bilateral Qualified Code(s): I82.423 - Acute embolism and thrombosis of iliac vein, bilateral (5) Hypokalemia: Status: Resolved Assessment and plan: Recheck in am (6) Stage 4 lung cancer: Status: Acute Assessment and plan: last chemotherapy was 3 weeks ago. Palliative care consulted. Qualifiers: Laterality: unspecified laterality Qualified Code(s): C34.90 - Malignant neoplasm of unspecified part of unspecified bronchus or lung (7) Protein malnutrition: Status: Chronic Assessment and plan: Nutrition consulted. Receiving nutritional protein supplements. (8) Chronic distal aortic occlusion: Status: Chronic Assessment and plan: Old distal aortic occlusion, known since November 2020 (9) DNR (do not resuscitate): Status: Acute Assessment and plan: DNR/DNI. Palliative care consulted to help with the COLST form. Subjective Subjective Interval history since last seen: Ms Lemus states she is feeling nauseated. She denies dizziness, CP, states she is a little SOB, but denies cough. Her abdomen is not painful. She did have a fever this morning (38.0). Exam Narrative Exam Narrative: General: Pleasant elderly female who is frail, A&Ox3, appears weak HEENT: EOMI, MMM Heart: RRR, no m/r/g Lungs: Diminished breath sounds B Abdomen: soft, nontender, nondistended Extremities: no edema BLEs Objective Last Vital Signs Temp 37.4 C 06/30/23 16:28 Pulse 80 06/30/23 16:28 Resp 20 06/30/23 16:28 BP 100/60 06/30/23 16:28 Pulse Ox 95 06/30/23 16:28 Laboratory Results - last 24 hr 06/30/23 06/30/23 06/30/23 09:31 11:49 12:06 WBC 7.07 RBC 2.92 L Hgb 9.2 L Hct 28.6 L MCV 98 H MCH 31.5 MCHC 32.2 RDW 20.1 H Plt Count 107 L MPV 10.6 Immature Gran % 1.3 Neutrophils % 68.6 Lymphocytes % 17.3 Monocytes % 12.2 Eosinophils % 0.3 Basophils % 0.3 Nucleated RBC % 0.0 Absolute Neutrophils 4.86 Absolute Lymphocytes 1.22 Absolute Monocytes 0.86 H Absolute Eosinophils 0.02 Absolute Basophils 0.02 Sodium 138 Potassium 4.1 Chloride 107 Carbon Dioxide 23.8 Anion Gap 7.2 BUN 18 Creatinine 1.0 Est GFR (CKD-EPI 2020) 60.61 Glucose 108 H Calcium 8.5 Magnesium 1.5 L Urine Color Urine Clarity Urine pH Ur Specific [place] Urine Protein Urine Ketones Urine Blood Urine Nitrite Urine Bilirubin Urine Urobilinogen Ur Leukocyte Esterase Urine RBC Urine WBC Ur Epithelial Cells Urine Crystals Urine Bacteria Urine Casts Urine Mucus Urine Other Ur Culture Indicated? Urine Glucose COVID-19 Source Nasopharynx SARS-CoV-2 (PCR) Negative Influenza Type A (PCR) Negative Influenza Type B (PCR) Negative RSV (PCR) Negative MRSA (TEM-PCR) 06/30/23 06/30/23 13:40 16:14 WBC RBC Hgb Hct MCV MCH MCHC RDW Plt Count MPV Immature Gran % Neutrophils % Lymphocytes % Monocytes % Eosinophils % Basophils % Nucleated RBC % Absolute Neutrophils Absolute Lymphocytes Absolute Monocytes Absolute Eosinophils Absolute Basophils Sodium Potassium Chloride Carbon Dioxide Anion Gap BUN Creatinine Est GFR (CKD-EPI 2020) Glucose Calcium Magnesium Urine Color Yellow Urine Clarity Clear Urine pH 7.0 Ur Specific [place] 1.015 Urine Protein Negative Urine Ketones Negative Urine Blood Trace-intact H Urine Nitrite Negative Urine Bilirubin Negative Urine Urobilinogen 0.2 Ur Leukocyte Esterase Negative Urine RBC 3-5 H Urine WBC 0-2 Ur Epithelial Cells Few Urine Crystals Negative Urine Bacteria Negative Urine Casts Negative Urine Mucus Negative Urine Other Few Transitional Ur Culture Indicated? No Urine Glucose Negative COVID-19 Source SARS-CoV-2 (PCR) Influenza Type A (PCR) Influenza Type B (PCR) RSV (PCR) MRSA (TEM-PCR) Negative Time Spent with Patient Time Spent with Patient: 35-49 minutes Time was spent: preparing to see the patient(eg.review tests), obtaining and/or reviewing separately otained hiistory, ordering medications,tests, procedures, referring, communicating with other health career developer, indepentently interpreting results, counseling the patient and care coordination
[2023-06-30] MEDS: Atorvastatin 20 MG TAB 40 MG PO (20:09)
[2023-06-30] MEDS: Mirtazapine 15 MG TAB 7.5 MG PO (20:09)
[2023-06-30] MEDS: Pantoprazole 40 MG TABCR PO (20:10)
[2023-07-01] VITALS (7 sets, daily range): BP systolic 91–110; BP diastolic 55–74; PULSE 82–95; RESP 16–18; TEMP 36.1–37.5; O2SAT 96–99
[2023-07-01] MEDS: CEFEPIME 2 GM in Normal Saline 100 ML IVPB ×2 (03:27→15:37)
[2023-07-01 06:50] LABS: Abs Immature Grans 0.07 10^3/uL (0.0-0.06); Absolute Basophil Count 0.01 10^3/uL (0.0-0.2); Absolute Eosinophil Count 0.04 10^3/uL (0.0-0.7); Absolute Lymphocyte Count 0.98 10^3/uL (1.2-3.4); Absolute Monocyte Count 0.73 10^3/uL (0.1-0.8); Absolute Neutrophil Count 3.54 10^3/uL (1.2-6.7); Basophils % 0.2; Eosinophils % 0.7; HCT 27.9 % (36.0-46.0); Immature Grans % 1.3; Lymphocytes % 18.2; MCH 31.7 pg (27.0-33.0); MCHC 32.3 % (32.0-36.0); MCV 98 fL (80-95); MPV 10.2 fL (8.0-11.0); Monocytes % 13.6; Platelet Count 115 10^3/uL (130-400); RBC 2.84 10^6/uL (3.93-5.22); RDW 19.9 % (11.7-14.6); RDW-SD 65.2 fL; WBC 5.37 10^3/uL (4.4-10.8)
[2023-07-01 07:04] LABS: Anion Gap 4.1 mmol/L (3-11); BUN 17 mg/dL (7-18); CO2 25.9 mmol/L (21.0-32.0); CREATININE 0.9 mg/dL (0.55-1.02); Calcium 8.4 mg/dL (8.5-10.1); Chloride 107 mmol/L (98-107); Estimated GFR 68.77 (mL/min/1.73m2); Glucose 96 mg/dL (74-106); Magnesium 2.7 mg/dL (1.8-2.4); Potassium 4.9 mmol/L (3.5-5.1); Sodium 137 mmol/L (136-145)
--- NOTE | 2023-07-01 08:17 | PT.INTREAT ---
PT Notes Visit Reasons: Anemia,General Weakness,Severe Hypokalemia Date: 07/01/23 PRECAUTIONS: Fall, standard, activity as tolerated. SUBJECTIVE: Pt reports that she still having pain on on sacral area, had a difficult time sleeping, agrees to trying to get out of bed and do a little bit of standing today. OBJECTIVE: pt in rowan's position, warming pad on her chest, central venous line and urinary catheter ? PAIN: pt reports pain slightly went down from 04/22 to 03/22 VITALS: closely monitored by nursing staff via telemetry. Therapeutic Activities [id number] 25mins: Direct one-on-one instruction in dynamic activities to improve functional performance. ? ? BED MOBILITY/TRANSFERS? Rolling L/R: supervision Supine-sit: min A? Sit-supine: min A? Sit-stand: min A? Stand-sit: CGA ? Bed-Chair: not assessed? Chair-bed: not assessed Pt able to stay sitting unsupported static for 5mins, dynamic using perturbation 5mins, sit t stand for 4x with seated rest break in between, pt able to stay standing for 10secs interval before requiring to sit back down due to pt reporting nausea and fatigue. Provided skilled cues and instruction on performance and technique throughout. ASSESSMENT:? Patient reports feeling exhausted with activity but is very happy that she was abl to stay sitting and stand up a couple of times without fainting. pt repositioned in bed for bolsters and pillows in rowan's position for pressure sore prevention, covered with blankets for warm and setup for breakfast, bed alarm and bed remote prior to conclusion of session. PLAN: Continue strengthening per plan of care to patient tolerance. TREATMENT CODE/TIME: [id number], 25mins (7:50-8:15am)
[2023-07-01] MEDS: hydrOXYzine HCL 25 MG TAB PO ×2 (08:33→15:36)
[2023-07-01] MEDS: Potassium Chloride 20 MEQ TABCR 40 MEQ PO ×2 (08:33→21:31)
[2023-07-01] MEDS: Apixaban 5 MG TAB 10 MG PO ×2 (08:34→21:31)
[2023-07-01] MEDS: Magnesium Oxide 400 MG TAB PO (08:34)
[2023-07-01] MEDS: Pantoprazole 40 MG TABCR PO ×2 (08:34→21:32)
[2023-07-01] MEDS: Protein Nutritional Supplement 16 GM 1 OUNCE PACKET PO ×2 (08:35→14:20)
[2023-07-01] MEDS: HYDROmorphone 4 MG TAB PO (08:35)
[2023-07-01] MEDS: Normal Saline Flush 10 ML SYR IVP ×2 (15:37→18:44)
--- NOTE | 2023-07-01 18:05 | PGE_ITS ---
Date of Service Date of service: 07/01/23 Time of Service: 18:05 Assessment and Plan Assessment and plan (1) Fever: Status: Acute Assessment and plan: infiltrates vs atelectasis on CXR. Does have an infusaport as well. Started on empiric cefepime yesterday. Blood cx negative. fevers have not recurred. Continue abx IV today, switch to PO tomorrow. Encourage pulmonary toilet. Fever could also have been caused by the DVTs. (2) Community acquired pneumonia of right lower lobe of lung: Status: Acute Assessment and plan: As above (3) Anemia: Status: Chronic Assessment and plan: No active bleeding. Continue PPI. H/H stable after transfusion of 2 units pRBCs. Qualifiers: Anemia type: unspecified type Qualified Code(s): D64.9 - Anemia, unspecified (4) Deep vein thrombosis (DVT) of iliofemoral vein: Status: Suspected Assessment and plan: bilateral LE DVTs, present on admission. Tolearting Eliquis. Consider IVC filter if aligns with patient's wishes or anemia worsens/bleeding occurs. Qualifiers: Laterality: bilateral Qualified Code(s): I82.423 - Acute embolism and thrombosis of iliac vein, bilateral (5) Hypokalemia: Status: Resolved Assessment and plan: Recheck in am (6) Stage 4 lung cancer: Status: Acute Assessment and plan: last chemotherapy was 3 weeks ago. Palliative care consulted. Qualifiers: Laterality: unspecified laterality Qualified Code(s): C34.90 - Malignant neoplasm of unspecified part of unspecified bronchus or lung (7) Protein malnutrition: Status: Chronic Assessment and plan: Nutrition consulted. Receiving nutritional protein supplements. (8) Chronic distal aortic occlusion: Status: Chronic Assessment and plan: Old distal aortic occlusion, known since November 2020 (9) DNR (do not resuscitate): Status: Acute Assessment and plan: DNR/DNI. Palliative care consulted to help with the COLST form. (10) Discharge planning issues: Status: Acute Assessment and plan: Possible discharge to a SNF vs home with services. Subjective Subjective Interval history since last seen: Ms Lemus reports nausea after dinner. Otherwise, she is tired. Denies dizziness, CP, SOB, abdominal pain. Mentioned to care management that she would be interested in going to rehab. Exam Narrative Exam Narrative: General: Pleasant elderly female who is frail, A&Ox3, appears weak, taking a nap, wakes up easily HEENT: EOMI, MMM Heart: RRR, no m/r/g Lungs: Diminished breath sounds B Abdomen: soft, nontender, nondistended Extremities: no edema BLEs Objective Last Vital Signs Temp 36.1 C L 07/01/23 15:50 Pulse 95 H 07/01/23 15:50 Resp 18 07/01/23 15:50 BP 106/69 07/01/23 15:50 Pulse Ox 98 07/01/23 15:50 Laboratory Results - last 24 hr 07/01/23 06:22 WBC 5.37 RBC 2.84 L Hgb 9.0 L Hct 27.9 L MCV 98 H MCH 31.7 MCHC 32.3 RDW 19.9 H Plt Count 115 L MPV 10.2 Immature Gran % 1.3 Neutrophils % 66.0 Lymphocytes % 18.2 Monocytes % 13.6 Eosinophils % 0.7 Basophils % 0.2 Nucleated RBC % 0.0 Absolute Neutrophils 3.54 Absolute Lymphocytes 0.98 L Absolute Monocytes 0.73 Absolute Eosinophils 0.04 Absolute Basophils 0.01 Sodium 137 Potassium 4.9 Chloride 107 Carbon Dioxide 25.9 Anion Gap 4.1 BUN 17 Creatinine 0.9 Est GFR (CKD-EPI 2020) 68.77 Glucose 96 Calcium 8.4 L Magnesium 2.7 H Time Spent with Patient Time Spent with Patient: 35-49 minutes Time was spent: preparing to see the patient(eg.review tests), obtaining and/or reviewing separately otained hiistory, ordering medications,tests, procedures, referring, communicating with other health pediatric critical care nurse, indepentently interpreting results, counseling the patient and care coordination
[2023-07-01] MEDS: Ondansetron 4 MG/2 ML VIAL IVP (18:43)
[2023-07-01] MEDS: Atorvastatin 20 MG TAB 40 MG PO (21:32)
[2023-07-01] MEDS: Mirtazapine 15 MG TAB 7.5 MG PO (21:33)
[2023-07-02] VITALS (7 sets, daily range): BP systolic 93–114; BP diastolic 57–76; PULSE 85–95; RESP 16–18; TEMP 35.5–37.1; O2SAT 96–99
[2023-07-02] MEDS: Normal Saline Flush 10 ML SYR IVP ×4 (03:30→19:54)
[2023-07-02] MEDS: Ondansetron 4 MG/2 ML VIAL IVP ×2 (03:38→19:51)
[2023-07-02] MEDS: CEFEPIME 2 GM in Normal Saline 100 ML IVPB (03:39)
[2023-07-02 06:47] LABS: Abs Immature Grans 0.05 10^3/uL (0.0-0.06); Absolute Basophil Count 0.01 10^3/uL (0.0-0.2); Absolute Eosinophil Count 0.04 10^3/uL (0.0-0.7); Absolute Lymphocyte Count 0.85 10^3/uL (1.2-3.4); Absolute Monocyte Count 0.71 10^3/uL (0.1-0.8); Absolute Neutrophil Count 3.54 10^3/uL (1.2-6.7); Basophils % 0.2; Eosinophils % 0.8; HCT 26.9 % (36.0-46.0); HGB 8.7 g/dL (11.2-15.7); Lymphocytes % 16.3; MCH 31.8 pg (27.0-33.0); MCHC 32.3 % (32.0-36.0); MCV 98 fL (80-95); MPV 10.1 fL (8.0-11.0); Monocytes % 13.7; Platelet Count 135 10^3/uL (130-400); RBC 2.74 10^6/uL (3.93-5.22); RDW 19.8 % (11.7-14.6)
[2023-07-02 07:02] LABS: Anion Gap 3.5 mmol/L (3-11); BUN 17 mg/dL (7-18); CO2 27.5 mmol/L (21.0-32.0); CREATININE 0.9 mg/dL (0.55-1.02); Calcium 8.5 mg/dL (8.5-10.1); Chloride 104 mmol/L (98-107); Estimated GFR 68.77 (mL/min/1.73m2); Glucose 93 mg/dL (74-106); Magnesium 2.4 mg/dL (1.8-2.4); Potassium 4.8 mmol/L (3.5-5.1); Sodium 135 mmol/L (136-145)
[2023-07-02] MEDS: Apixaban 5 MG TAB 10 MG PO (08:09)
[2023-07-02] MEDS: Pantoprazole 40 MG TABCR PO ×2 (08:09→21:34)
[2023-07-02] MEDS: Prochlorperazine 10 MG TAB 6 MG PO (08:10)
[2023-07-02] MEDS: Amoxicillin 875/Clav. 125 TAB PO ×2 (13:09→21:33)
--- NOTE | 2023-07-02 14:22 | PTTR_ITS ---
Date of service: 07/02/23 Time of Service: 13:45 PT Notes Visit Reasons: Anemia,General Weakness,Severe Hypokalemia Inpatient Physical Therapy Treatment Note [facility] Date: 07/02/23 PRECAUTIONS: Fall, standard, activity as tolerated. SUBJECTIVE: Patient reports that she is leaving for rehab today, will not need therapy. CM says rehab is waiting on insurance prior authorization, and patient will likely not be leaving until tomorrow. Patient agreeable to work with therapy after this update. Patient also reports feeling nauseous. OBJECTIVE: Patient sidelying on left side heating pad across chest., agreeable to therapy. ? PAIN: none reported VITALS: closely monitored by nursing staff via telemetry. Therapeutic Activities ([id number]): Direct one-on-one instruction in dynamic activities to improve functional performance. ? BED MOBILITY/TRANSFERS? Rolling L/R: independent Supine-sit: mod assist via handhold x2 for patient to pull up into sitting. ? Sit-supine: independent ? Sit-stand x7: CGA - patient claims to be unable to stand on her own, however when this therapist has one hand on the gait belt and provides no assistance patient stands. ? Stand-sit x7: CGA? Bed-Chair x1: CGA? Chair-bed x1: CGA Provided skilled cues and instruction on performance and technique throughout. ? Therapeutic Exercises ([id number]): Direct one-on-one instruction in therapeutic exercises to develop strength, endurance, range of motion and flexibility. ? Exercises: * Seated LAQ's x10 * Seated marching 2x5 * heel toe raises x10 Ambulation ? Assistive Device: FWW? Weight bearing: full Assist: CGA, verbal cues for direction ? Distance:? 5 feet, seated rest, 5 feet ? Deviation: Kyphotic stooped posture, reduced step height, reduced stride length, insistence that she must sit after very short ambulation. ? Provided skilled instruction in proper exercise performance Provided skilled manual cues to facilitate proper muscle recruitment and/or form. ASSESSMENT:? Patient declines further therapy, ends treatment session sidelying on right side. Reports fatigue and nausea. PLAN: Continue global strengthening per plan of care until patient is medically cleared for discharge and obtains a safe discharge plan. TREATMENT CODE/TIME: 31 minutes beginning at 13:45
[2023-07-02] MEDS: Acetaminophen 500 MG TAB 1000 MG PO (15:29)
[2023-07-02] MEDS: hydrOXYzine HCL 25 MG TAB PO (15:31)
--- NOTE | 2023-07-02 17:39 | PDOC.CMPRO ---
Date of service: 07/02/23 Time of Service: 17:39 Care Management Progress Note Progress Note Text Progress Note Text: S/O: Kita was lying in bed when CM met with her. Her discharge appeal was denied, however she developed a fever so was not discharged as planned. Kita has received a bed offer from [facility] pending insurance authorization. If the transfer to [facility] is not approved, she will discharge home tomorrow with new home health services for Nursing, PT, OT and WAREHOUSE OPERATIONS MANAGER. A: Kita is a 72 year old woman admitted on 06/24/23 with anemia, hypokalemia and stage IV lung cancer P:Anticipate Kita will either be discharged home with new orders for home health services or transfer to a SNF for short term rehab prior to returning home. She has a bed offer at [facility] in [place], pending insurance authorization.will follow up with community providers and plan of care and transport with family. CM will follow and support discharge planning needs.
[2023-07-02] MEDS: HYDROmorphone 4 MG TAB PO (18:27)
--- NOTE | 2023-07-02 19:32 | W.PM.PROGNOT ---
Date of Service Date of service: 07/02/23 Time of Service: 19:32 Assessment and Plan Assessment and plan (1) Fever: Status: Acute Assessment and plan: infiltrates vs atelectasis on CXR. Does have an infusaport as well. Blood cx remain negative. Switched to Po augmentin. Encourage pulmonary toilet. Fever could also have been caused by the DVTs. (2) Community acquired pneumonia of right lower lobe of lung: Status: Acute Assessment and plan: As above (3) Anemia: Status: Chronic Assessment and plan: No active bleeding. Continue PPI. H/H stable after transfusion of 2 units pRBCs. Qualifiers: Anemia type: unspecified type Qualified Code(s): D64.9 - Anemia, unspecified (4) Deep vein thrombosis (DVT) of iliofemoral vein: Status: Suspected Assessment and plan: bilateral LE DVTs, present on admission. Tolearting Eliquis. Consider IVC filter if aligns with patient's wishes or anemia worsens/bleeding occurs. Qualifiers: Laterality: bilateral Qualified Code(s): I82.423 - Acute embolism and thrombosis of iliac vein, bilateral (5) Hypokalemia: Status: Resolved Assessment and plan: Recheck in am (6) Stage 4 lung cancer: Status: Acute Assessment and plan: last chemotherapy was 3 weeks ago. Palliative care consulted. Qualifiers: Laterality: unspecified laterality Qualified Code(s): C34.90 - Malignant neoplasm of unspecified part of unspecified bronchus or lung (7) Protein malnutrition: Status: Chronic Assessment and plan: Nutrition consulted. Receiving nutritional protein supplements. (8) Chronic distal aortic occlusion: Status: Chronic Assessment and plan: Old distal aortic occlusion, known since November 2020 (9) DNR (do not resuscitate): Status: Acute Assessment and plan: DNR/DNI. Palliative care consulted to help with the COLST form. (10) Discharge planning issues: Status: Acute Assessment and plan: DNR/DNI Anticipate discharge to a SNF tomorrow Subjective Subjective Interval history since last seen: again reports nausea after dinner. Also reports a RLQ pain. States last BM was yesterday, does not feel constipated. Denies dizziness, CP, SOB. Exam Narrative Exam Narrative: General: Pleasant elderly female who is frail, A&Ox3, appears weak, taking a nap, wakes up easily, looks nauseated HEENT: EOMI, MMM Heart: RRR, no m/r/g Lungs: Diminished breath sounds B Abdomen: soft, tender in RLQ, nondistended Extremities: no edema BLEs Objective Last Vital Signs Temp 35.5 C L 07/02/23 15:58 Pulse 92 H 07/02/23 15:58 Resp 18 07/02/23 15:58 BP 114/76 07/02/23 15:58 Pulse Ox 99 07/02/23 15:58 Laboratory Results - last 24 hr 07/02/23 06:27 WBC 5.20 RBC 2.74 L Hgb 8.7 L Hct 26.9 L MCV 98 H MCH 31.8 MCHC 32.3 RDW 19.8 H Plt Count 135 MPV 10.1 Immature Gran % 1.0 Neutrophils % 68.0 Lymphocytes % 16.3 Monocytes % 13.7 Eosinophils % 0.8 Basophils % 0.2 Nucleated RBC % 0.0 Absolute Neutrophils 3.54 Absolute Lymphocytes 0.85 L Absolute Monocytes 0.71 Absolute Eosinophils 0.04 Absolute Basophils 0.01 Sodium 135 L Potassium 4.8 Chloride 104 Carbon Dioxide 27.5 Anion Gap 3.5 BUN 17 Creatinine 0.9 Est GFR (CKD-EPI 2020) 68.77 Glucose 93 Calcium 8.5 Magnesium 2.4 Time Spent with Patient Time Spent with Patient: 25-34 minutes Time was spent: preparing to see the patient(eg.review tests), obtaining and/or reviewing separately otained hiistory, ordering medications,tests, procedures, referring, communicating with other health healthcare advisory services manager, indepentently interpreting results, counseling the patient and care coordination
[2023-07-02] MEDS: Mirtazapine 15 MG TAB 7.5 MG PO (21:33)
[2023-07-02] MEDS: Protein Nutritional Supplement 16 GM 1 OUNCE PACKET PO (21:33)
[2023-07-02] MEDS: Atorvastatin 20 MG TAB 40 MG PO (21:34)
[2023-07-02] MEDS: Magnesium Oxide 400 MG TAB PO (21:34)
--- NOTE | 2023-07-03 | DI.RAD_ITS ---
Exam(s) XR SHOULDER LT COMPLETE 2+V XR HUMERUS LT XR CLAVICLE LT EXAM: XR SHOULDER LT COMPLETE 2+V and XR humerus LT and XR clavicle LT CLINICAL HISTORY: L shoulder pain post fall. TECHNIQUE: 2D digital imaging was performed of the left clavicle, shoulder and humerus. Eight image s were obtained. AP, lateral, Grashey, Y-view and axillary views were obtained. COMPARISON: CR,XR XR PORTABLE CHEST AP from 06/30/2023 FINDINGS: BONES: There is a mildly displaced fracture of the distal left clavicle. The acromioclavicular joint appears well maintained. No bony destructive lesion is seen. JOINTS: No dislocation present. The glenohumeral joint is unremarkable. The visualized portions of t he elbow are unremarkable. SOFT TISSUE: The visualized lung arriaza are clear. IMPRESSION: 1. Mildly displaced fracture involving the distal clavicle. 2. No other fracture or dislocation is identified. DATA REPOSITORY: RADIATION DOSE DELIVERED:
[2023-07-03 03:40] VITALS: BP 96/62; PULSE 94; RESP 16; TEMP 37.1; O2SAT 97
[2023-07-03] MEDS: Normal Saline Flush 10 ML SYR IVP ×4 (06:30→07:50)
[2023-07-03 07:36] LABS: Abs Immature Grans 0.06 10^3/uL (0.0-0.06); Absolute Basophil Count 0.02 10^3/uL (0.0-0.2); Absolute Eosinophil Count 0.03 10^3/uL (0.0-0.7); Absolute Lymphocyte Count 0.68 10^3/uL (1.2-3.4); Absolute Monocyte Count 0.78 10^3/uL (0.1-0.8); Absolute Neutrophil Count 3.94 10^3/uL (1.2-6.7); Basophils % 0.4; Eosinophils % 0.5; HCT 25.7 % (36.0-46.0); HGB 8.6 g/dL (11.2-15.7); Immature Grans % 1.1; Lymphocytes % 12.3; MCH 32.8 pg (27.0-33.0); MCHC 33.5 % (32.0-36.0); MCV 98 fL (80-95); MPV 10.4 fL (8.0-11.0); Monocytes % 14.2; Neutrophils % 71.5; Platelet Count 158 10^3/uL (130-400); RBC 2.62 10^6/uL (3.93-5.22); RDW-SD 69.6 fL; WBC 5.51 10^3/uL (4.4-10.8)
[2023-07-03] MEDS: Ondansetron 4 MG/2 ML VIAL IVP (07:49)
[2023-07-03] MEDS: Protein Nutritional Supplement 16 GM 1 OUNCE PACKET PO (07:52)
[2023-07-03] MEDS: Pantoprazole 40 MG TABCR PO (07:53)
[2023-07-03] MEDS: Magnesium Oxide 400 MG TAB PO (07:54)
[2023-07-03 07:55] LABS: Anion Gap 3.4 mmol/L (3-11); BUN 14 mg/dL (7-18); CO2 27.6 mmol/L (21.0-32.0); CREATININE 0.9 mg/dL (0.55-1.02); Calcium 8.6 mg/dL (8.5-10.1); Chloride 104 mmol/L (98-107); Estimated GFR 68.77 (mL/min/1.73m2); Glucose 96 mg/dL (74-106); Magnesium 2.4 mg/dL (1.8-2.4); Potassium 4.2 mmol/L (3.5-5.1); Sodium 135 mmol/L (136-145)
[2023-07-03] MEDS: Potassium Chloride 20 MEQ TABCR 40 MEQ PO (07:56)
[2023-07-03] MEDS: Amoxicillin 875/Clav. 125 TAB PO (07:56)
[2023-07-03] MEDS: Lidocaine 5% Patch 1 PATCH TP (11:40)
[2023-07-03] MEDS: Prochlorperazine 10 MG TAB 6 MG PO (11:40)
[2023-07-03] MEDS: HYDROmorphone 4 MG TAB PO (11:41)
[2023-07-03 11:58] VITALS: BP 91/58; PULSE 95; RESP 18; TEMP 37.1; O2SAT 98
--- NOTE | 2023-07-03 12:05 | PDOC.CMDIS ---
Date of service: 07/03/23 Time of Service: 12:05 LACE Index Scoring Tool Questions: Length of Stay (in days): 7 - 13 Was the patient admitted via the E.D.?: Yes Comorbidities: Metastatic Solid Tumor E.D. Visits: 3 Answers: Total Score: 16 Risk of Readmission: High Risk Care Management Discharge Plan Reason for Hospitalization: Anemia Discharge Plan: Kita will go to [facility] for short term rehab prior to returning home. She will transport via [facility] private vehicle, coordinated by CM. She will follow up with her PCP and discharge plan of care. Patient/Family Education Needs: Review discharge instructions and limitations, discussion of self care needs including ask me three. Services Needed at Discharge: Penitentiary Facility ([facility]) and Transportation ([facility] )
--- NOTE | 2023-07-03 12:14 | DSE_ITS ---
Date of service: 07/03/23 Time of Service: 12:14 DS: Diagnosis Discharge Diagnosis (1) Community acquired pneumonia of right lower lobe of lung: Status: Resolved (2) Anemia: Status: Chronic (3) Deep vein thrombosis (DVT) of iliofemoral vein: Status: Suspected (4) Closed left clavicular fracture: Status: Acute (5) Fever: Status: Resolved (6) Hypokalemia: Status: Resolved (7) Stage 4 lung cancer: Status: Chronic (8) Protein malnutrition: Status: Chronic (9) Chronic distal aortic occlusion: Status: Chronic (10) DNR (do not resuscitate): Status: Acute Asessment and Plan: DNR/DNI Discharge Plan Disposition Patient Disposition: Half-Way Facility(SNF) Condition: Stable Discharge Details Reason For Visit: Anemia,General Weakness,Severe Hypokalemia Admit Date/Time: 06/24/23 15:25 Admit Provider: Jeremy Freire Attending Provider: Jeremy Freire Primary Care Provider: Nitish Mccoy Hospital Course Hospital Course: Ms Lemus is a 72 year old female with PMHx of metastatic non-small cell lung cancer, as well as h/o chronic anemia, chronic pain, chronic distal aortic occlusion, malnutrition, who was admitted to [facility] hospitalist service on 06/24/23 with acute on chronic anemia requiring 2 units of packed red blood cells on the day of admission without evidence of active bleeding. Her hemoglobin since transfusion has been around 8.6-9.0. It is 8.6 today. She was empirically started on protonix 40 mg BID which she is being discharged on at this time as she also reports frequent nausea. She also had hypokalemia and hypomagnesemia, which were both repleted. She was treated for a pneumonia at the hospital (ceftriaxone and doxycycline), but had to have a second antibiotic course (cefepime) when she spiked a fever upon completion of the original antibiotics. She was converted from cefepime to augmentin and has 5 more doses of this to complete. Patient was also found to have bilateral LE DVTs (present on admission) and was on heparin drip for 48 hours and this has been transitioned to p.o. Eliquis. The patient reported a L shoulder pain to us today. This was assessed with Xrays, and it appears that the patient has an age- indeterminate mildly displaced L clavicular fracture. The patient admits to having had a fall about 2 weeks ago when she thinks the shoulder pain started - this was at home and prior to admission. She was fitted with a sling for comfort and is being discharged with a referral to orthopedic surgery. The patient initially refused to go to a subacute rehab, but is now in agreement with this and is being discharged to [facility]. She agrees to hold chemotherapy until she is discharged from SNF. She should follow up with palliative care. Finally, the patient has a chronic stage III sacral pressure ulcer. For this, she has been receiving mepilex dressings with a border with frequent repositioning. This wound was present on admission. Care for patient as well as completion of her discharge summary on day of discharge took 60 minutes. Home Meds and New Rx's Prescriptions: New mirtazapine 15 mg Tablet 7.5 mg PO HS Qty: 60 0RF amoxicillin-pot clavulanate 875-125 mg Tablet 1 tab PO BID Qty: 0 0RF Rx Instructions: x 5 doses Eliquis 5 mg Tablet 5 mg PO BID Qty: 0 0RF lidocaine 5 % Adhesive Patch,Medicated 1 patch topical DAILY@1000 Qty: 0 0RF Rx Instructions: apply to L shoulder/clavicle potassium chloride [Klor-Con M20] 20 mEq Tablet,Er Particles/Crystals 40 meq PO DAILY Qty: 0 0RF magnesium oxide 400 mg (241.3 mg magnesium) Tablet 400 mg PO DAILY Qty: 0 0RF pantoprazole 40 mg Tablet,Delayed Release (Dr/Ec) 40 mg PO BID@0730,2000 Qty: 0 0RF ondansetron 4 mg Tablet,Disintegrating 4 mg PO DAILY@1700 Qty: 0 0RF Phlexy-Vits 15 mg- 700 mcg Powder In Packet 1 packet PO TID Qty: 0 0RF Continued atorvastatin 20 mg Tablet 40 mg PO QPM aspirin 81 mg Tablet,Delayed Release (Dr/Ec) 81 mg PO DAILY Patient Comments: Not taking acetaminophen [Tylenol Extra Strength] 500 mg Tablet 1,000 mg PO .Q6HRS PRN prochlorperazine maleate 10 mg tablet 6 mg PO Q6H PRN Patient Comments: TAKE ONE TABLET BY MOUTH EVERY 6 HOURS NEEDED FOR NAUSEA dexamethasone 4 mg tablet See Rx Instructions .ROUTE .COMPLEX Patient Comments: TAKE ONE TABLET BY MOUTH THE DAY BEFORE CHEMOTHERAPY AND THE DAY AFTER CHEMOTHERAPY Rx Instructions: Take 1 tab PO the day before and the day chemotherapy hydroxyzine HCl 25 mg tablet 25 mg PO QID PRNQty: 14 0RF hydromorphone 4 mg tablet 4 mg PO Q4H Qty: 12 0RF Discharge Instructions Instructions: Amoxicillin/Clavulanate Potassium (By mouth), Apixaban (By mouth), Clavicle Fracture (DC), Hypokalemia (DC), Deep Vein Thrombosis (DC), Community Acquired Pneumonia (DC), Bacterial Pneumonia (DC), Anemia (DC) Additional Instructions: Return to the hospital with any fever, bleeding, chest pain, shortness of breath. Follow up with orthopedic surgery for your clavicular fracture. Follow up with palliative care. Stand Alone Forms: Nursing Discharge Form Referrals: Amaya Olsen MD [ [facility] STAFF PHYSICIAN] - Sergio Knox MD [ [facility] STAFF PHYSICIAN] - (Clavicular fracture) Nitish Mccoy MD [Primary Care Provider] - 07/10/23 3:00 pm (Please arrive at 02:45pm for an appointment at 3:00pm ) Activity:: Activity as Tolerated Equipment/Supplies:: Sling Diet:: As Tolerated Discharge Orders Discharge Orders: Discharge Order (Routine); Ordered 07/03/23 Ordered By: Candace Loyd DS: Summary Time Spent with Patient providing and/or coordinating discharge services: Greater than 30 minutes Status at Discharge Functional status at discharge: uses cane/walker Overall status at discharge: patient is progressing back to baseline Mental Status: mental status grossly normal Speech and Movement: speech and movement normal Mood: congruent mood Affect: normal affect Exam Narrative Exam Narrative: General: Pleasant elderly female who is frail, A&Ox3, looks weak HEENT: EOMI, MMM Heart: RRR, no m/r/g Lungs: Diminished breath sounds B Abdomen: soft, tender in RLQ, nondistended Extremities: no edema BLEs, L shoulder TTP Psych Mental Status: mental status grossly normal Speech and Movement: speech and movement normal Mood: congruent mood Affect: normal affect DS: Data Vitals/I&O Vitals and I&O: Vital Signs Temperature 37.1 C 07/03/23 11:58 Temperature Source Tympanic 07/03/23 11:58 Pulse 95 H 07/03/23 11:58 Pulse Rhythm Regular 07/02/23 20:00 Pulse 82 06/25/23 16:17 Respiratory Rate 18 07/03/23 11:58 Respiratory Effort Normal, Non-Labored 07/02/23 20:00 Respiratory Depth Normal 07/02/23 20:00 Respiratory Pattern Normal 07/02/23 20:00 Blood Pressure 91/58 L 07/03/23 11:58 Blood Pressure Mean 75 06/25/23 16:17 Blood Pressure Position Right Lateral 06/24/23 20:19 Pulse Oximetry 98 07/03/23 11:58 Oxygen Delivery Method Room Air 07/03/23 11:58 Oxygen Flow Rate 0 07/03/23 11:58 Pain Level 9 07/03/23 11:41 Comment Nurse notified bout BP. 07/02/23 11:16 Intake & Output 07/02/23 07/03/23 07/03/23 23:59 11:59 23:59 Intake Total 1210 / 1310 Output Total 500 / 1350 850 / 850 Balance 710 / -40 -850 / -850 Intake: IV 10 / 110 Oral 1200 / 1200 Output: Urine 500 / 1350 850 / 850 Other: Urine Color Yellow Yellow Urine Appearance Clear Comment purewick Voiding Methods Diaper Incontinent Data Completed and Pending Completed studies during hospitalization [Text1]: CT abdomen/pelvis 06/24/23: . Bilateral pleural effusions, left larger than right. Also symmetrical anasarca now evident which was not evident on the prior CT scan of January 2023 paired 2. Large amount of calcified plaque in the nondilated aorta and iliac arteries. Suspect that there may be an element of possible aortic obstruction here, difficult to assess without IV contrast. 3. Somewhat distended gallbladder lumen. No obvious acute cholecystitis. CT chest/abdomen/pelvis 06/24/23: 1. There are bilateral pleural effusions left larger than right. There is infiltrate in the right lower lobe. Close follow-up recommended. 2. There is anasarca but no ascites evident. 3. The abdominal aorta is heavily calcified but not enlarged as are the common iliac arteries and there appears to be occlusion of the abdominal aorta above the level of the inferior mesenteric artery. 4. Chronically dilated duodenal C-loop and there is an ileus pattern of jejunal small bowel loops. No ascites. No acute small bowel obstruction evident 5. multiple small cysts in the liver again noted. Venous doppler 06/25/23: Right: Deep venous thrombosis in the common femoral and proximal femoral veins. Left: Deep venous thrombosis from the common femoral vein through the calf veins. CXR 06/30/23: Limited exam due to poor pulmonary inflation. Small bilateral pleural effusions and bibasilar infiltrates versus atelectasis. XR humerus L 07/03/23: 1. Mildly displaced fracture involving the distal clavicle. 2. No other fracture or dislocation is identified. XR clavicle L 07/03/23; 1. Mildly displaced fracture involving the distal clavicle. 2. No other fracture or dislocation is identified. XR shoulder L 07/03/23: 1. Mildly displaced fracture involving the distal clavicle. 2. No other fracture or dislocation is identified. Labs on day of discharge: Labs from last 24 hours 07/03/23 06:30 WBC 5.51 RBC 2.62 L Hgb 8.6 L Hct 25.7 L MCV 98 H MCH 32.8 MCHC 33.5 RDW 20.0 H Plt Count 158 MPV 10.4 Immature Gran % 1.1 Neutrophils % 71.5 Lymphocytes % 12.3 Monocytes % 14.2 Eosinophils % 0.5 Basophils % 0.4 Nucleated RBC % 0.0 Absolute Neutrophils 3.94 Absolute Lymphocytes 0.68 L Absolute Monocytes 0.78 Absolute Eosinophils 0.03 Absolute Basophils 0.02 Sodium 135 L Potassium 4.2 Chloride 104 Carbon Dioxide 27.6 Anion Gap 3.4 BUN 14 Creatinine 0.9 Est GFR (CKD-EPI 2020) 68.77 Glucose 96 Calcium 8.6 Magnesium 2.4 Preliminary micro results at discharge 06/30/23 12:44 Blood Culture - Preliminary Blood NO GROWTH 48 HOURS 06/30/23 12:06 Blood Culture - Preliminary Blood NO GROWTH 48 HOURS PFSH All Active Problems (Updated 07/03/23 @ 12:17 by Candace Loyd MD) Closed left clavicular fracture (Acute) Discharge planning issues (Acute) Chronic pain (Chronic) Low Back pain on hydrocodone. Not cancer related. 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 (Acute) Advanced care planning/counseling discussion (Acute) Palliative care patient (Acute) DNR (do not resuscitate) (Acute) Protein malnutrition (Chronic) Chronic distal aortic occlusion (Chronic) Anemia (Chronic) Stage 4 lung cancer (Chronic) Closed fracture of left pelvis (Acute) Lumbago (Acute) Social History Smoking/Tobacco Use Status: Former Tobacco Use Quit Date: 10/11/22 Smoking risk assessment performed?: Yes Alcohol Intake: never Drug use: Never Substance use type: does not use Housing: house Do you feel safe at home: Yes Do you feel safe in your relationship?: Yes Additional Social history: Lives with Time Spent with Patient Time Spent with Patient: 45-69 minutes Time was spent: preparing to see the patient(eg.review tests), obtaining and/or reviewing separately otained hiistory, ordering medications,tests, procedures, referring, communicating with other health progressive care unit registered nurse, indepentently interpreting results, counseling the patient and care coordination
[2023-07-03] MEDS: Apixaban 5 MG TAB 10 MG PO (12:43)
== END 2023-07-03 13:51 | disposition skilled nursing facility (03) | DRG 180 ==
LOC: ER 18:57 → ICU 19:45 → MS 06-25 18:35
PROVIDERS: Emergency Medicine; Family Medicine; Internal Medicine; Physician Assistant; Admitting Provider Internal Medicine; Emergency Provider Nurse Practitioner Family; PCP Internal Medicine; Visit Provider Internal Medicine
DX: C34.90 Malignant neoplasm of unspecified part of unspecified bronchus or lung (principal); J18.9 Pneumonia, unspecified organism; L89.153 Pressure ulcer of sacral region, stage 3; I82.423 Acute embolism and thrombosis of iliac vein, bilateral; E46 Unspecified protein-calorie malnutrition; I74.09 Other arterial embolism and thrombosis of abdominal aorta; C77.8 Secondary and unspecified malignant neoplasm of lymph nodes of multiple regions; C79.31 Secondary malignant neoplasm of brain; Z68.1 Body mass index [BMI] 19.9 or less, adult; D63.0 Anemia in neoplastic disease; E87.6 Hypokalemia; Z66 Do not resuscitate; Z51.5 Encounter for palliative care; G89.29 Other chronic pain; M54.50 Low back pain, unspecified; Z87.891 Personal history of nicotine dependence; F41.9 Anxiety disorder, unspecified; Z95.828 Presence of other vascular implants and grafts; R50.9 Fever, unspecified; E83.42 Hypomagnesemia; S42.032A Displaced fracture of lateral end of left clavicle, initial encounter for closed fracture; W19.XXXA Unspecified fall, initial encounter; R60.1 Generalized edema
CPT/HCPCS: 00123; 36415; 36430; 36591; 74177; 80048; 80053; 82550; 83690; 84145; 85027; 86850; 86900; 86901; 86920; 87040; 87449; 87635; 87637; 87641; 93005; 96365; 96366; 96368; 97110; 97112; 97162; 97530; 99285; 71045; 71260; 73000; 73030; 73060; 74176; 81003; 81015; 82270; 82607; 82746; 83735; 83880; 84132; 84134; 85014; 85018; 85025; 85610; 85730; 87899; 93010; 93970; 94667; 94668; 99223; 99232; 99233; 99239; J2405; J3475; J3480; J3490; P9016